=== PATIENT | female | born 2000 | race Two or more races ===

== ENCOUNTER 2021-07-05 17:24 | Emergency (ER) | payer OTHER, SELFPAY ==
[2021-07-05 17:31] VITALS: BP 141/65; PULSE 87; RESP 16; TEMP 36.8; O2SAT 100
[2021-07-05 17:44] VITALS: BP 141/65; PULSE 87; RESP 16; TEMP 36.8; O2SAT 100
--- NOTE | 2021-07-05 17:58 | ED.EAR ---
HPI - Ear Problem General Chief complaint: Ear Stated complaint: ear drainage and trouble hearing Time Seen by Provider: 07/05/21 17:57 Source: patient and RN notes reviewed Mode of arrival: ambulatory Limitations: no limitations History of Present Illness HPI Narrative: 21-year-old female presents with concern for ear discharge, decreased hearing, right ear discomfort. She reports feeling of fullness. Reports she has been using antihistamine and Flonase for possible fluid behind the ear without relief. She denies fever, nasal congestion, rhinorrhea, sore throat. MD Complaint: ear discharge Related Data Home Medications Medication Instructions Recorded Confirmed cetirizine [Zyrtec] 10 mg PO DAILY 07/05/21 07/05/21 ergocalciferol (vitamin D2) 1,250 mcg PO WEEKLY 07/05/21 07/05/21 [Vitamin D2] fluticasone furoate 50 mcg INHALATION DAILY 07/05/21 07/05/21 Allergies Allergy/AdvReac Type Severity Reaction Status Date / Time No Known Allergies Allergy Verified 07/05/21 17:39 Review of Systems Review of Systems: CONSTITUTIONAL: Denies malaise, chills, sweats, or fever. EYES: Denies visual changes, redness, or discharge. ENT: Denies rhinorrhea, congestion, sinus pain, and sore throat. Reports ear discharge, decreased hearing, right ear fullness and discomfort CARDIOVASCULAR: Denies chest pain, palpitations, or edema. RESPIRATORY: Denies cough. Denies dyspnea. GASTROINTESTINAL: Denies abdominal pain, nausea, vomiting, diarrhea SKIN: Denies rash or itching. MUSCULOSKELETAL: Denies myalgia. NEUROLOGIC: Denies headache. All systems reviewed & are unremarkable except as noted in HPI and below PMFSH Comments At time of signature, agree with nursing past medical, surgical, social and family history. There is no relevant family history pertinent to the presenting complaint Exam Narrative: GENERAL: Well-appearing, well-nourished, and in no acute distress. HEAD: Normocephalic EYES: PERRLA, conjunctivae clear ENT: Nares clear. Mucous membranes moist. Right TM not visible due to purulent drainage and edema, left TM not visible due to excess cerumen; no tragal tenderness. Oropharynx not erythematous without lesions. Tonsils not enlarged and without exudate, no drooling, no hoarseness, no trismus, uvula midline. NECK: Supple. No lymphadenopathy CHEST: No respiratory distress, speaks in full sentences. HEART: Regular rate and rhythm. No murmur heard. SKIN: Warm, dry, no rash. NEURO: Alert and oriented x3. PSYCH: Normal mood and affect Course Course Emergency Course: Patient is aware of diagnosis, understands and agrees to treatment plan. Anticipatory guidance given. Patient agrees to follow-up as directed and is aware of reasons to seek care at the emergency department. Portions of this record may have been created with voice recognition software Level of Care: Express Care Visit Vital Signs Vital signs: Vital Signs Temperature 98.2 F 07/05/21 17:31 Pulse Rate 87 07/05/21 17:31 Respiratory Rate 16 07/05/21 17:31 Blood Pressure 141/65 H 07/05/21 17:31 Pulse Oximetry 100 07/05/21 17:31 Temperature 98.2 F 07/05/21 17:44 Pulse Rate 87 07/05/21 17:44 Respiratory Rate 16 07/05/21 17:44 Blood Pressure 141/65 H 07/05/21 17:44 Pulse Oximetry 100 07/05/21 17:44 Reviewed. Medical Decision Making MDM Narrative Medical decision making narrative: Differential diagnosis considered: Lima virus, strep pharyngitis, allergic rhinitis, upper respiratory tract infection, sinusitis, rhinosinusitis, nasopharyngitis. viral pharyngitis, otitis media, otitis externa, otitis effusion, cerumen impaction, foreign body. Exam findings show no acute concerns or changes; patient is non-toxic appearing and is in no distress. Patient is appropriate for outpatient treatment and follow-up. Vital Signs Vital Signs: Vital Signs Temperature 98.2 F 07/05/21 17:31 Pulse Rate 87 07/05/21 17:31 Respiratory Rate 16
== END 2021-07-05 18:07 | disposition home or self-care (01) ==
PROVIDERS: Emergency Provider Nurse Practitioner
DX: H60.501 Unspecified acute noninfective otitis externa, right ear (principal); J45.909 Unspecified asthma, uncomplicated
CPT/HCPCS: 99203; G0463

== ENCOUNTER 2022-12-06 13:48 | Emergency (ER) | payer OTHER, SELFPAY ==
[2022-12-06 13:52] VITALS: BP 128/64; PULSE 98; RESP 20; TEMP 37.4; O2SAT 100
--- NOTE | 2022-12-06 14:33 | ED.EAR ---
HPI - Ear Problem General Chief complaint: Ear Stated complaint: ears Time Seen by Provider: 12/06/22 14:33 Source: patient Mode of arrival: ambulatory Limitations: no limitations History of Present Illness HPI Narrative: 22-year-old female presents for complaint of ear pain the past few days. Endorses mild left ear drainage, pain is worse with pressure on the ear or when trying to lay on that side. Endorses both ears sound muffled. Denies tinnitus, dizziness, nausea, vomiting, fever chills. Endorses a history of ear infections. States they tend to start when she gets water in the ear. Denies frequent use of ear buds. MD Complaint: ear pain Related Data Allergies Allergy/AdvReac Type Severity Reaction Status Date / Time No Known Allergies Allergy Verified 12/06/22 14:02 Review of Systems Review of Systems: CONSTITUTIONAL: Denies malaise, chills, or fever. EYES: Denies visual changes, redness, or discharge. ENT: Denies rhinorrhea, congestion, sinus pain, and sore throat. Reports ear pain CARDIOVASCULAR: Denies chest pain, palpitations, or edema. RESPIRATORY: Denies cough or dyspnea. GASTROINTESTINAL: Denies abdominal pain, nausea, vomiting, diarrhea SKIN: Denies rash or itching. MUSCULOSKELETAL: Denies myalgia. NEUROLOGIC: Denies headache. All systems reviewed & are unremarkable except as noted in HPI and below PMFSH Past Medical History Medical History (Updated 12/06/22 @ 14:48 by Alison Albert APRN) No pertinent past medical history Comments At time of signature, agree with nursing past medical, surgical, social and family history. There is no relevant family history pertinent to the presenting complaint Exam Narrative: GENERAL: Well-appearing HEAD: Normocephalic EYES: PERRLA, conjunctivae clear ENT: Nares clear. Mucous membranes moist. right canal with excess cerumen, after removal Right TM pearly levy with normal light reflex; left canal erythematous with mild drainage, tenderness, left tragal tenderness. Oropharynx not erythematous without lesions. NECK: Supple. No lymphadenopathy CHEST: Clear to auscultation, breath sounds equal. No wheezing, rhonchi, rales, or stridor. No respiratory distress, speaks in full sentences. HEART: Regular rate and rhythm. No murmur heard. SKIN: Warm, dry, no rash. NEURO: Alert and oriented x3. PSYCH: Normal mood and affect Course Course Emergency Course: Patient is aware of diagnosis, understands and agrees to treatment plan. Anticipatory guidance given. Patient agrees to follow-up as directed and is aware of reasons to seek care at the emergency department. Portions of this record may have been created with voice recognition software Level of Care: Express Care Visit Vital Signs Vital signs: Vital Signs Temperature 99.4 F 12/06/22 13:52 Pulse Rate 98 12/06/22 13:52 Respiratory Rate 12/06/22 13:52 Blood Pressure 128/64 12/06/22 13:52 Pulse Oximetry 100 12/06/22 13:52 Oxygen Delivery Room Air 12/06/22 13:52 Temperature 99.4 F 12/06/22 13:52 Pulse Rate 98 12/06/22 13:52 Respiratory Rate 12/06/22 13:52 Blood Pressure 128/64 12/06/22 13:52 Pulse Oximetry 100 12/06/22 13:52 Oxygen Delivery Room Air 12/06/22 13:52 Reviewed Procedures Ear Wax Removal Right Ear: Ear Wax Removal Date: 12/06/22 Results: Re-examined: some cerumen remains TM Examination: TM(s) intact, normal appearance Ear Canal Exam: atraumatic Patient Tolerated Procedure: well and no complications Technique: ear canal curetted Additional Comments: Small amount of soft cerumen removed using curette. Patient reported significant improvement in hearing. Patient will use OTC debrox for small remainder of cerumen. Medical Decision Making MDM Narrative Medical decision making narrative: Discussed physical exam findings c/w left OE, Right cerumen impaction; tolerated cerumen removal. Advised s
== END 2022-12-06 14:47 | disposition home or self-care (01) ==
PROVIDERS: Emergency Provider Nurse Practitioner Family; PCP Nurse Practitioner Family
DX: H60.92 Unspecified otitis externa, left ear (principal); H61.21 Impacted cerumen, right ear
CPT/HCPCS: 69210; 99213; G0463

== ENCOUNTER 2023-06-29 12:44 | Emergency (ER) | payer OTHER, SELFPAY ==
[2023-06-29 12:54] VITALS: BP 124/82; PULSE 88; RESP 20; TEMP 37.1; O2SAT 100
--- NOTE | 2023-06-29 14:26 | ED.EAR ---
HPI - Ear Problem General Chief complaint: Ear Stated complaint: Ears Source: patient Mode of arrival: ambulatory Limitations: no limitations History of Present Illness HPI Narrative: Patient presents for evaluation of bilateral ear discomfort for the last week. She indicates she has a history of recurrent ear infections. In the past she has been given oral and otic antibiotic preparations together. She has seen ENT but states that she was not given any insight as to the cause of her recurrent infections. She reports muffled hearing and states that her ear canals feel ?wet?. No fever, chills, nausea, vomiting, sinus congestion, sore throat or cough. She does not smoke. Exposure to secondhand smoke. Related Data Allergies Allergy/AdvReac Type Severity Reaction Status Date / Time No Known Allergies Allergy Verified 06/29/23 12:59 Review of Systems Review of Systems: CONSTITUTIONAL: Denies fever, chills, or sweats. EYES: Denies visual changes, redness, or discharge. ENT: Reports bilateral ear discomfort, muffled hearing, and a ?wet? sensation in the ears. CARDIOVASCULAR: Denies chest pain, palpitations, or edema. RESPIRATORY: Denies cough or dyspnea. GASTROINTESTINAL: Denies abdominal pain, nausea, vomiting, or diarrhea. GENITOURINARY: Denies dysuria or hematuria. SKIN: Denies rash or itching. MUSCULOSKELETAL: Denies back pain, joint pain, or myalgia. NEUROLOGIC: Denies headache, numbness, dizziness, or weakness. PSYCHIATRIC: Denies anxiety or depression. PMFSH Past Medical History Medical History (Updated 06/29/23 @ 14:31 by Js Villalobos, TRAVIS, ) Asthma Surgical History Surgical History No pertinent past surgical history Family History Family History Mother Unknown family medical history Social History Social History Smoking status: Never smoker Substance use: never Gender identity (if verbalized by the patient): Female Spiritual care concerns: No Exam Narrative: GENERAL: Well-appearing, well-nourished, and in no acute distress. HEAD: Normocephalic, atraumatic. EYES: PERRLA and EOMI. ENT: Nares clear, no rhinorrhea or epistaxis. Mucous membranes moist. Oropharynx without tonsillar hypertrophy exudate or other lesions. Bilateral ear canals are edematous. I am unable to visualize the tympanic membranes. There is some white exudate on both ear canals. NECK: Supple. No adenopathy or masses. No carotid bruits or JVD CHEST: Clear to auscultation. No respiratory distress. No wheezes rales or rhonchi HEART: Regular rate and rhythm. No murmur heard. Normal peripheral pulses. ABDOMEN: Soft, nontender, nondistended, normal active bowel sounds. EXTREMITIES: Normal range of motion. No edema. SKIN: Warm, dry, no rash. NEURO: No focal deficits. Alert and oriented x3. PSYCH: Normal mood and affect. Course Course Emergency Course: This is a 23-year-old female who presented for evaluation of bilateral ear discomfort. I was unable to visualize the tympanic membranes due to edematous canals. I irrigated both ears, patient tolerated well. Small amount of white exudate was removed. I was still unable to visualize the tympanic membranes. She could have a simple otitis externa but very well could have otitis media with rupture of the TM's. Has required oral and otix abx concurrently in the past. Will dc with augmentin and ofloxacin. Follow up with primary provider and ENT. Go to the ER for worsening symptoms. Patient in agreement with plan of care. Level of Care: Express Care Visit Vital Signs Vital signs: Vital Signs Temperature 37.1 C 06/29/23 12:54 Pulse Rate 88 06/29/23 12:54 Respiratory Rate 20 06/29/23 12:54 Blood Pressure 124/82 06/29/23 12:54 Pulse Oximetry 100 06/29/23 12:54 Oxy
== END 2023-06-29 14:41 | disposition home or self-care (01) ==
PROVIDERS: Emergency Provider Nurse Practitioner; PCP Nurse Practitioner Family
DX: H60.503 Unspecified acute noninfective otitis externa, bilateral (principal); H61.23 Impacted cerumen, bilateral; J45.909 Unspecified asthma, uncomplicated
CPT/HCPCS: 69209; 99213; G0463

== ENCOUNTER 2023-12-20 10:47 | Emergency (ER) | payer OTHER, SELFPAY ==
[2023-12-20 10:56] VITALS: BP 123/75; PULSE 83; RESP 16; TEMP 37.1; O2SAT 99
--- NOTE | 2023-12-20 11:50 | ED.EAR ---
HPI - Ear Problem General Chief complaint: Ear Stated complaint: Ear Pain/Skin Problem Time Seen by Provider: 12/20/23 11:37 Source: patient and RN notes reviewed Mode of arrival: ambulatory Limitations: no limitations History of Present Illness HPI Narrative: Patient presents today complaining of clear drainage from bilateral ears with itching and mild left ear pain x2-3 days. She has tried no OTC treatment prior to arrival. States she has had similar symptoms in the past and has been given ear drops. States she has seen ENT in the past and was told that she has a narrow ear canal and that her ear canal was, ?too clean. She also complains a rash to left forearm times 2-3 months. States she does shave the forearms before she gets laser hair removal treatment. States the rash, that appears as small pimple like lesions, wax and wane. She has tried no treatment prior to arrival. Related Data Allergies Allergy/AdvReac Type Severity Reaction Status Date / Time No Known Allergies Allergy Verified 12/20/23 10:53 Review of Systems Review of Systems: CONSTITUTIONAL: Denies body aches, fever, chills, or sweats. EYES: Denies visual changes, redness, or discharge. ENT: Denies rhinorrhea, congestion, sore throat. + bilateral ear drainage, left ear pain CARDIOVASCULAR: Denies chest pain, palpitations, or edema. RESPIRATORY: Denies cough or dyspnea. GASTROINTESTINAL: Denies abdominal pain, nausea, vomiting, or diarrhea. GENITOURINARY: Denies dysuria or hematuria. SKIN: + left forearm rash MUSCULOSKELETAL: Denies back pain, joint pain, or myalgia. NEUROLOGIC: Denies headache, numbness, tingling, or weakness. PSYCH: Denies depression or anxiety. [facility] Past Medical History Medical History Asthma Surgical History Surgical History No pertinent past surgical history Family History Family History Mother Unknown family medical history Social History Social History Smoking status: Never smoker Substance use: never Gender identity (if verbalized by the patient): Female Spiritual care concerns: No Comments At time of signature, I have reviewed and agree with nursing past medical, surgical, social and family history unless otherwise noted. Please see nursing chart for further information. There is no relevant family history pertinent to the presenting complaint Exam Narrative: GENERAL: Well-appearing, well-nourished, and in no acute distress. HEAD: Normocephalic, atraumatic. EYES: EOMI. No redness or drainage. Conjunctivae normal. ENT: Mucous membranes pink and moist. Bilateral ear canals are slightly edematous with clear drainage. No movement or tragal tenderness noted. NECK: Normal AROM. CHEST: No respiratory distress. EXTREMITIES: Normal range of motion. No edema. SKIN: Warm, dry. Capillary refill normal. Normal skin turgor. Scattered tiny pustules, appear to be folliculitis, to the left anterior forearm. No erythema, induration, or active drainage. NEURO: No focal deficits. Alert and oriented x3. Gait steady. PSYCH: Normal affect. No signs of depression or anxiety. Course Course Level of Care: Express Care Visit Vital Signs Vital signs: Vital Signs Temperature 98.8 F 12/20/23 10:56 Pulse Rate 83 12/20/23 10:56 Respiratory Rate 16 12/20/23 10:56 Blood Pressure 123/75 12/20/23 10:56 Pulse Oximetry 99 12/20/23 10:56 Oxygen Delivery Room Air 12/20/23 10:56 Temperature 98.8 F 12/20/23 10:56 Pulse Rate 83 12/20/23 10:56 Respiratory Rate 16 12/20/23 10:56 Blood Pressure 123/75 12/20/23 10:56 Pulse Oximetry 99 12/20/23 10:56 Oxygen Delivery Room Air 12/20/23 10:56 Reviewed Medical Decision Making MDM Narrati
== END 2023-12-20 12:00 | disposition home or self-care (01) ==
PROVIDERS: Emergency Provider Nurse Practitioner; PCP Nurse Practitioner Family
DX: L73.9 Follicular disorder, unspecified (principal); H60.93 Unspecified otitis externa, bilateral; J45.909 Unspecified asthma, uncomplicated
CPT/HCPCS: 99213; G0463

== ENCOUNTER 2024-05-23 16:57 | Emergency (ER) | payer OTHER, SELFPAY ==
[2024-05-23 17:01] VITALS: BP 125/68; PULSE 75; RESP 18; TEMP 36.8; O2SAT 100
--- NOTE | 2024-05-23 17:03 | ED.EAR ---
HPI - Ear Problem General Chief complaint: Ear Stated complaint: Ear Pain Time Seen by Provider: 05/23/24 17:15 Source: patient and RN notes reviewed Mode of arrival: ambulatory Limitations: no limitations History of Present Illness HPI Narrative: 24-year-old female presents with concern for bilateral ear drainage. She reports history of ear infections. She denies any current ear pain. Denies upper respiratory symptoms. Denies fever. MD Complaint: ear pain Related Data Home Medications ?Medication ?Instructions ?Recorded ?Confirmed ?Last Taken ?Type cholecalciferol (vitamin D3) 1,250 05/23/24 Unknown History mcg (50,000 unit) capsule Allergies Allergy/AdvReac Type Severity Reaction Status Date / Time No Known Allergies Allergy Verified 05/23/24 16:59 Review of Systems Review of Systems: CONSTITUTIONAL: Denies malaise, chills, sweats, or fever. EYES: Denies visual changes, redness, or discharge. ENT: Denies rhinorrhea, congestion, sinus pain, and sore throat. Reports bilateral ear drainage CARDIOVASCULAR: Denies chest pain, palpitations, or edema. RESPIRATORY: Denies cough. Denies dyspnea. GASTROINTESTINAL: Denies abdominal pain, nausea, vomiting, diarrhea SKIN: Denies rash or itching. MUSCULOSKELETAL: Denies myalgia. NEUROLOGIC: Denies headache. All systems reviewed & are unremarkable except as noted in HPI and below PMFSH Past Medical History Medical History Asthma Surgical History Surgical History No pertinent past surgical history Family History Family History Mother Unknown family medical history Social History Social History Smoking status: Never smoker Substance use: never Gender identity (if verbalized by the patient): Female Spiritual care concerns: No Comments At time of signature, agree with nursing past medical, surgical, social and family history. There is no relevant family history pertinent to the presenting complaint Exam Narrative: GENERAL: Well-appearing, well-nourished, and in no acute distress. HEAD: Normocephalic EYES: PERRLA, conjunctivae clear ENT: Nares clear. TM pearly levy; EAC erythema and edema bilaterally with drainage NECK: Supple. No lymphadenopathy CHEST: No respiratory distress, speaks in full sentences. HEART: Regular rate and rhythm. No murmur heard. SKIN: Warm, dry, no rash. NEURO: Alert and oriented x3. PSYCH: Normal mood and affect Course Course Emergency Course: Patient is aware of diagnosis, understands and agrees to treatment plan. Anticipatory guidance given. Patient agrees to follow-up as directed and is aware of reasons to seek care at the emergency department. Portions of this record may have been created with voice recognition software Level of Care: [facility] Visit Vital Signs Vital signs: Vital Signs Temperature 98.3 F 05/23/24 17:01 Pulse Rate 75 05/23/24 17:01 Respiratory Rate 18 05/23/24 17:01 Blood Pressure 125/68 05/23/24 17:01 Pulse Oximetry 100 05/23/24 17:01 Oxygen Delivery Room Air 05/23/24 17:01 Temperature 98.3 F 05/23/24 17:01 Pulse Rate 75 05/23/24 17:01 Respiratory Rate 18 05/23/24 17:01 Blood Pressure 125/68 05/23/24 17:01 Pulse Oximetry 100 05/23/24 17:01 Oxygen Delivery Room Air 05/23/24 17:01 Reviewed. Medical Decision Making MDM Narrative Medical decision making narrative: I evaluated this in the [facility]. History is obtained from patient who is an independent historian and physical exam was performed.? Available medical records were reviewed. ? Exam findings and relevant testing show no acute concerns or changes; patient is non-toxic appearing and is in no distress. Differential diagnosis considered: Lima virus, strep pharyngitis, allergic rhinitis, upper respiratory tract infection, sinusitis, rhinosinusitis, nasopharyngitis. viral pharyngitis, otitis media, otitis externa, otitis effusion, cerumen impaction, foreign body. Exam findings show no acute concerns or changes; patient is non-toxic appearing and is in no distress. Patient is appropriate for outpatient treatment and follow-up. ? Differential diagnosis and treatment plan were discussed with the patient. Patient agrees with discussion and after shared medical decision making agrees with plan of care. All questions were answered to the patient's satisfaction. Patient is appropriate for outpatient treatment and follow-up. Vital Signs Vital Signs: Vital Signs Temperature 98.3 F 05/23/24 17:01 Pulse Rate 75 05/23/24 17:01 Respiratory Rate 18 05/23/24 17:01 Blood Pressure 125/68 05/23/24 17:01 Pulse Oximetry 100 05/23/24 17:01 Oxygen Delivery Room Air 05/23/24 17:01 Temperature 98.3 F 05/23/24 17:01 Pulse Rate 75 05/23/24 17:01 Respiratory Rate 18 05/23/24 17:01 Blood Pressure 125/68 05/23/24 17:01 Pulse Oximetry 100 05/23/24 17:01 Oxygen Delivery Room Air 05/23/24 17:01 Critical Care Time Critical Care Time Critical Care Time: No Discharge Plan Discharge Clinical Impression: Otitis externa Patient Disposition: Home, Self-Care Condition: Stable Instructions: How to Use Ear Drops (ED) Additional Instructions: 1) Please follow-up with your primary care doctor in the next 1-2 days. 2) If you have any urgent concerns please go to the ER. 3) Please take medications as prescribed and continue taking your home medications as usual. 4) Please read and follow information included in discharge instructions. Patient Language: Greenlandic Prescriptions: New [id number] 3.5-10,000-1 mg/mL-unit/mL-% drops,suspension 4 drop EACH EAR Q8H 7 Days Qty: 10 0RF No Action cholecalciferol (vitamin D3) 1,250 mcg (50,000 unit) capsule Follow-up/Referrals: Claire,Celeste Yeung APN [Primary Care Provider] - Time of Disposition: 17:23
== END 2024-05-23 17:25 | disposition home or self-care (01) ==
PROVIDERS: Emergency Provider Nurse Practitioner; PCP Nurse Practitioner Family
DX: H60.93 Unspecified otitis externa, bilateral (principal)
CPT/HCPCS: 99213; G0463

== ENCOUNTER 2024-06-01 15:20 | Emergency (ER) | payer OTHER, SELFPAY ==
[2024-06-01 15:24] VITALS: BP 157/62; PULSE 96; RESP 20; TEMP 37.3; O2SAT 99
--- NOTE | 2024-06-01 15:45 | ED_ITS ---
HPI - URI/Sore Throat General Chief Complaint: Upper Respiratory Infection Stated Complaint: aches/cough Time Seen by Provider: 06/01/24 15:47 Source: patient, RN notes reviewed and old records reviewed Mode of arrival: ambulatory Limitations: no limitations History of Present Illness HPI Narrative: 24 year old female who presents to [facility] care with complaints of cough,body aches, fever, headache and fatigue which started yesterday. Patient reports that she has been taking Tylenol and Ibuprofen for her symptoms. Patient reports no shortness of breath with no tachypnea noted , SAO2 99% on room air. MD elicited complaint: fever, cough and other (headache, fatigue and body aches) Onset (ago): day(s) (day 2 of symptoms.) Consistency: constant Pain scale (0-10): 8 Description of mucous: clear Able to tolerate fluids by mouth: Yes Treatments prior to arrival: acetaminophen and ibuprofen Related Data Home Medications ?Medication ?Instructions ?Recorded ?Confirmed ?Last Taken ?Type cholecalciferol (vitamin D3) 1,250 05/23/24 Unknown History mcg (50,000 unit) capsule Allergies Allergy/AdvReac Type Severity Reaction Status Date / Time No Known Allergies Allergy Verified 06/01/24 15:31 Review of Systems Review of Systems: CONSTITUTIONAL:Reports malaise, chills, sweats, and fever. EYES: Denies visual changes, redness, or discharge. ENT: Reports rhinorrhea, congestion, no sinus pain,no otalgia and no sore throat. CARDIOVASCULAR: Denies chest pain, palpitations, or edema. RESPIRATORY: Reports cough.? Denies dyspnea. GASTROINTESTINAL: Denies abdominal pain, nausea, vomiting, diarrhea SKIN: Denies rash or itching. MUSCULOSKELETAL: Reports myalgia. NEUROLOGIC: Reports headache. All systems reviewed & are unremarkable except as noted in HPI and below PMFSH Past Medical History Medical History (Updated 06/03/24 @ 15:53 by Angelica Enciso NP) Fracture of finger of left hand 5th finger Asthma Surgical History Surgical History No pertinent past surgical history Family History Family History Mother Unknown family medical history Social History Social History Smoking status: Never smoker Substance use: never Gender identity (if verbalized by the patient): Female Spiritual care concerns: No Comments At time of signature, agree with nursing past medical, surgical, social and family history. There is no relevant family history pertinent to the presenting complaint Exam Narrative: GENERAL: ill-appearing, well-nourished, and in no acute distress. HEAD: Normocephalic EYES: PERRLA, conjunctivae clear ENT: Nares clear, turbinates edematous and erythematous, clear discharge. Mucous membranes moist. TM pearly levy with dull light reflex bilaterally; no tragal tenderness. Oropharynx erythematous without lesions. Tonsils not enlarged and without exudate, no drooling, no hoarseness, no trismus, uvula midline.some post nasal drainage NECK: Supple. No lymphadenopathy CHEST: Clear to auscultation, breath sounds equal. No wheezing, rhonchi, rales, or stridor. No respiratory distress, speaks in full sentences.cough noted SAO2 99% on room air HEART: Regular rate and rhythm. No murmur heard. SKIN: Warm, dry, no rash. NEURO: Alert and oriented x3. PSYCH: Normal mood and affect Course Course Emergency Course: Patient is aware of diagnosis, understands and agrees to treatment plan.? Anticipatory guidance given.? Patient agrees to follow-up as directed and is aware of reasons to seek care at the emergency department. Portions of this record may have been created with voice recognition software Level of Care: Express Care Visit Vital Signs Vital signs: Vital Signs Temperature 37.3 C 06/01/24 15:24 Pulse Rate 96 06/01/24 15:24 Respiratory Rate 20 06/01/24 15:24 Blood Pressure 157/62 H 06/01/24 15:24 Pulse Oximetry 99 06/01/24 15:24 Oxygen Delivery Room Air 06/01/24 15:24 Temperature 37.3 C 06/01/24 15:24 Pulse Rate 96 06/01/24 15:24 Respiratory Rate 20 06/01/24 15:24 Blood Pressure 157/62 H 06/01/24 15:24 Pulse Oximetry 99 06/01/24 15:24 Oxygen Delivery Room Air 06/01/24 15:24 Reviewed MDM - URI/Sore Throat MDM Narrative Medical decision making narrative: Differential diagnosis considered: [place] virus, strep pharyngitis, allergic rhinitis, upper respiratory tract infection, sinusitis, rhinosinusitis, nasopha ryngitis. viral pharyngitis, otitis media, otitis externa, pneumonia, bronchitis, viral cough syndrome, viral syndrome, and influenza.? Exam findings show no acute concerns or changes; patient is non-toxic appearing and is in no distress.? Patient is appropriate for outpatient treatment and follow-up. Differential Diagnosis Differential diagnosis: Likely upper respiratory infection, viral infection, bronchitis, influenza and other (COVID, cough) Medical Records Attestation: I reviewed the patient's medical records. Lab Data Attestation: I reviewed the patient's lab results. Lab results narrative: InfluenzaA negative, Influenza B negative, COVID antigen positive Labs: Lab Results 06/01/24 Range/Units 15:25 POC Influenza A Ag Negative (Negative) POC Influenza B Ag Negative (Negative) POC SARS CoV-2 Ag Positive (Negative) reviewed Critical Care Time Critical Care Time Critical Care Time: No Discharge Plan Discharge Clinical Impression: COVID-19 Patient Disposition: Home, Self-Care Condition: Stable Instructions: Antibiotic Form, COVID-19 (Coronavirus Disease 2019) (ED) Additional Instructions: Increase fluids especially juices and water Affb-dia-ohdsqym cough and cold medicine of your choice for your symptoms Zyrtec Claritin or Catie for sinus congestion and drainage Robitussin or Delsym cough syrup Tylenol or ibuprofen for any fever pain heat to the face 20-30 minutes 4-6 times a day for pain Salt water gargles, throat lozenges or throat sprays as desired If your symptoms persist, change or worsen significantly before you can contact your personal physician then please, without delay, go to the emergency department for further evaluation. Follow-up with PCP in 7-10 days or sooner if needed Follow up with PCP soon in regards to your blood pressure which is elevated above threshold for referral. Blood pressure above 120/80 may indicate pre- hypertension. 157/62 Was quarantine for 5 days from start of symptoms COVID-19 DISCHARGE The following recommendations have been made by the CDC and local Health Departments, regarding COVID-19: Those individuals with mild cases of COVID-19 can generally be discontinued from isolation, 5 days AFTER the onset of symptoms AND the resolution of fever for 24hrs (without the use of fever-reducing medications) Those individuals who were asymptomatic, and tested positive, are discontinued from isolation 10 days AFTER their first positive COVID-19 test Those individuals with SEVERE to CRITICAL illness or immunocompromised diseases may require up to 20 days of home isolation or hospitalization Majority of mild to moderate cases can be treated at home, without hospitalization or prescription medications You do not need a negative test result to return to work/school, assuming the above recommendations have been met and you are not symptomatic. At this time, return to work/school notes will not be provided. Guidelines from the local Health Department, CDC, and workplace are expected to be followed. All individuals in the household need to remained quarantined for up to 14 days if asymptomatic OR 10 days after the start of symptoms. Everyone in the home DOES NOT require testing, they are presumed positive and should quarantine as directed. Treating symptoms for mild to moderate cases may include: Tylenol, Flonase/nasal spray, OTC cold/flu medications recommended from your provider or any necessary prescription medications provided at your visit or from your PCP IF YOU TESTED NEGATIVE If you are symptomatic with reason to believe you have COVID-19, there is a high possibility your rapid test may not have detected the virus. Rapid testing is dependent on timing and viral load and may have a false- negative reading You should follow appropriate guidelines regarding quarantine, hand washing, mask wearing, and social distancing You may be sent for PCR testing as an outpatient to the [place] testing site Common Adult Symptoms: Fever/chills Cough Shortness of breath Fatigue, muscle aches Headache Loss of taste/smell Sore throat, congestion, runny nose GI symptoms (nausea, vomiting, diarrhea) Common Pediatric Symptoms Cough Fever GI symptoms (diarrhea, upset stomach, nausea, vomiting) Symptoms may differ in severity however, most cases do not require hospitalization. WHEN TO SEEK ER EVALUATION/TREATMENT Severe/persistent shortness of breath or difficulty breathing Elevated, persistent fevers without resolution with fever-reducing medications Chest pain Extreme fatigue/lethargy Complications of pre-existing disease Patient Language: Iraqi Prescriptions: No Action cholecalciferol (vitamin D3) 1,250 mcg (50,000 unit) capsule Follow-up/Referrals: Claire,Celeste Yeung APN [Primary Care Provider] - Stand Alone Forms: Work/School Release IP Time of Disposition: 16:04 Quality [place] Coma Scale Eyes: Open Verbal: Oriented and Alert Motor: Follows Commands [place] Coma Total Score: 15
[2024-06-01 15:55] LABS: EDCOVIDSCREEN Positive (Negative); EDINFLUASCREEN Negative (Negative); EDINFLUBSCREEN Negative (Negative)
--- OUTSIDE RECORDS SUMMARY | 2024-06-01 17:56 | XMS_ITS | Referral Summary ---
Author Organization [facility] Address [address] [place] [address] Care Team Providers Care Coating Line Worker Name Role Phone Celeste Claire NP Primary Care Provider Encounters Date Type Department Care Team Description 03/31/2024 8:46 PM GREY WASHER - 03/31/2024 9:59 PM GREY WASHER Emergency [facility] Emergency Department [address] [place] [address] Influenza A (Primary Dx); Acute febrile illness Discharge Disposition: Discharge to home or self care from Last 3 Months Allergies No known active allergies Medications ergocalciferol (VITAMIN D) 50,000 unit capsule Take 1 capsule by mouth once a week 0 06/15/19 19 Active diphenhydrAMINE (diphenhydrAMINE ) 25 mg capsule Take 1 tablet/capsule (25 mg total) by mouth every 6 (six) hours as needed for itching 20 capsule 06/29/19 19 Active naproxen (NAPROSYN) 375 mg tablet Take 1 tablet (375 mg total) by mouth 2 (two) times a day with meals 20 tablet 01/01/20 19 Active albuterol HFA (PROVENTIL HFA,VENTOLIN HFA,PROAIR HFA) 90 mcg/actuation inhalerIndicatio ns:Bronchospasm Prevention Inhale 2 puffs every 4 (four) hours as needed for wheezing 1 Inhaler 1 05/16/19 21 Active neomycin-polymyx in-HC (CORTISPORIN) 3.5-10,000-1 mg/mL-unit/mL-% otic suspension Administer 4 drops into the left ear 3 (three) times a day 10 mL 08/14/19 22 Active cyclobenzaprine (FLEXERIL) 10 mg tablet Take 1 tablet (10 mg total) by mouth 2 (two) times a day as needed for muscle spasms 20 tablet 11/25/19 23 Active ibuprofen (ADVIL,MOTRIN) 800 mg tablet Take 1 tablet (800 mg total) by mouth 3 (three) times a day as needed for pain 30 tablet 11/25/19 23 Active tiZANidine (ZANAFLEX) 4 mg tabletIndication s:Acute exacerbation of chronic low back pain Take 1 tablet (4 mg total) by mouth every 6 (six) hours as needed (Take as directed to relax muscles) Collaborating physician Demetrio Frias MD 20 tablet 11/20/19 24 Active traMADoL (ULTRAM) 50 mg tablet Take 1 tablet (50 mg total) by mouth every 8 (eight) hours as needed for pain P.r.n. pain not relieved by dexamethasone alone. Take 500 mg to 650 mg of acetaminophen with each dose. Take with food. Collaborating physician Demetrio Frias MD 12 tablet 11/20/19 24 Active ibuprofen (ADVIL,MOTRIN) 600 mg tabletIndication s:Influenza A,Acute febrile illness Take 1 tablet (600 mg total) by mouth every 8 (eight) hours as needed for pain or fever Take 1 by mouth every 6-8 hours to treat pain and fever. Collaborating physician Demetrio Frias MD 30 tablet 03/31/19 25 Active promethazine-DM (PROMETHAZINE-DM ) 1.25-3 mg/mL syrupIndications :Influenza A Take 5 mL by mouth 4 (four) times a day as needed for cough (And runny nose) Collaborating physician Demetrio Frias MD 118 mL 1 03/31/19 25 Active Active Problems Problem Noted Date Diagnosed Date Influenza A 03/31/2024 Acute febrile illness 03/31/2024 Acute exacerbation of chronic low back pain 10/24 Myalgia 12/31/2018 Elevated TSH 12/31/2018 Social History Tobacco Use Types Packs/Day Years Used Date Smoking Tobacco: Never Smokeless Tobacco: Never Alcohol Use Standard Drinks/Week Comments No 0 (1 standard drink = 0.6 oz pur e alcohol) Personal Safety Answer Date Recorded Have you ever been in or are you currently in a harmful physical or emotional relationship or is someone making you feel afraid or unsafe? Denies 03/31/2024 Comments No Sex and Gender Information Value Date Recorded Sex Assigned at Not on file Legal Sex Female 11:22 AM GREY WASHER Gender Identity Not on file Sexual Orientation Not on file Last Filed Vital Signs Vital Sign Reading Time Taken Comments Blood Pressure 120/85 03/31/2024 9:59 PM GREY WASHER Pulse 115 03/31/2024 9:59 PM GREY WASHER Temperature 37.7 C (99.9 F) 03/31/2024 9:59 PM GREY WASHER Respiratory Rate 18 03/31/2024 9:59 PM GREY WASHER Oxygen Saturation 98% 03/31/2024 9:59 PM GREY WASHER Inhaled Oxygen Concentration - - Weight 78.5 kg (173 lb 1 oz) 03/31/2024 6:55 PM GREY WASHER Height 160 cm (5' 2.99 ) 03/31/2024 6:55 PM GREY WASHER Body Mass Index 30.66 03/31/2024 6:55 PM GREY WASHER Plan of Treatment Not on file Procedures Procedure Name Priority Date/Time Associated Diagnosis Comments INFLUENZA A/B, RSV, AND COVID-19 PCR Routine 03/31/2024 6:58 PM GREY WASHER from Last 3 Months Results * (ABNORMAL) Influenza A/B, RSV, and COVID-19 PCR Nasopharyngeal (03/31/2024 6:58 PM GREY WASHER) COVID-19 RNA Negative Negative Influenza A RNA Positive(A) Negative [facility] ([place]) Influenza B RNA Negative Negative [facility] ([place]) RSV RNA Negative Negative [facility] ([place]) Comment: Interpretive data: Testing performed by [facility]. This test is performed using the [employer] Xpert Xpress CoV-2/Flu/RSV plus assay. This is a multiplex, real- time reverse transcriptase PCR assay intended for the qualitative detection of nucleic acid from SARS-CoV-2, influenza A, influenza B, and respiratory syncytial virus. This assay has been cleared by the [place] Food and Drug administration. The performance characteristics have been verified by the [facility]. Results must be considered in the clinical context, and a negative result does not rule out infection. Interpretive Data last revised 2023 Nasopharyngeal 03/31/2024 6: 58 PM GREY WASHER 03/31/2024 7:07 PM GREY WASHER Narrative [facility] ([place]) - 03/31/2024 9:34 PM GREY WASHER Is the Patient experiencing symptoms consistent with COVID?->Yes [facility] MICROBIOLOG[facility] - GENERAL O RDERABLES Final Result [facility] ([place]) 1 [facility] Department [place] [address] from Last 3 Months Insurance Care Teams Coating Line Worker Relationship Specialty Start Date End Date Alethea, Celeste Gonzalez NP [address] [place] [address] PCP - General 05/16/20
--- OUTSIDE RECORDS SUMMARY | 2024-06-01 17:56 | XMS_ITS | Clinical Summary ---
Author Organization [facility] Address [address] [place] [address] Care Team Providers Care Stone Setter Apprentice Name Role Phone Celeste Claire NP Primary Care Provider [phone] Allergies No known active allergies Medications ergocalciferol [...] pain 10/24 Myalgia 12/31/2018 Elevated TSH 12/31/2018 Encounters Date Type Department Care Team Description 03/31/2024 8:46 PM SHAREPOINT APPLICATION ARCHITECT - 03/31/2024 9:59 PM SHAREPOINT APPLICATION ARCHITECT Emergency [facility] Emergency Department [address] [place] [address] Influenza A (Primary Dx); Acute febrile illness Discharge Disposition: Discharge to home or self care from Last 3 Months Medical History Medical History Date Comments Asthma Social History Tobacco Use Types Packs/Day Years [...] on file Legal Sex Female 11:22 AM SHAREPOINT APPLICATION ARCHITECT Gender Identity Not on file Sexual Orientation Not on file Obstetrics History Last Filed Vital Signs Vital Sign Reading Time Taken Comments Blood Pressure 120/85 03/31/2024 9:59 PM SHAREPOINT APPLICATION ARCHITECT Pulse 115 03/31/2024 9:59 PM SHAREPOINT APPLICATION ARCHITECT Temperature 37.7 C (99.9 F) 03/31/2024 9:59 PM SHAREPOINT APPLICATION ARCHITECT Respiratory Rate 18 03/31/2024 9:59 PM SHAREPOINT APPLICATION ARCHITECT Oxygen Saturation 98% 03/31/2024 9:59 PM SHAREPOINT APPLICATION ARCHITECT Inhaled Oxygen Concentration - - Weight 78.5 kg (173 lb 1 oz) 03/31/2024 6:55 PM SHAREPOINT APPLICATION ARCHITECT Height 160 cm (5' 2.99 ) 03/31/2024 6:55 PM SHAREPOINT APPLICATION ARCHITECT Body Mass Index 30.66 03/31/2024 6:55 PM SHAREPOINT APPLICATION ARCHITECT Plan of Treatment Health Maintenance Due Date Last Done Comments Cervical Cancer Screening 2000 Depression Screening 2000 Hepatitis C Screening 2000 Regular Well Visit/Exam 18-64 2018 Influenza Vaccine (#1) 2023 7, 12/30/2015, 01/20/2014, Additional history exists DTaP/Tdap/Td Vaccine (8 - Td or Tdap) 03/23/2024 03/23/2014, 09/03/2013, 11/06/2011, Additional history exists Hepatitis B Screening Completed 01/18/2001 , 2000, 2000 Pneumococcal vaccine <65 Completed 002, 01/17/2001, 2000 Varicella Vaccines Completed 10/22/2008, 10/28/2001 HPV Vaccines Completed 05/25/2014, 02/24, 09/03/2013 Procedures Procedure Name Priority Date/Time Associated Diagnosis Comments INFLUENZA A/B, RSV, AND COVID-19 PCR Routine 03/31/2024 6:58 PM SHAREPOINT APPLICATION ARCHITECT from Last 3 Months Results * (ABNORMAL) Influenza A/B, RSV, and COVID-19 PCR Nasopharyngeal (03/31/2024 6:58 PM SHAREPOINT APPLICATION ARCHITECT) COVID-19 RNA Negative Negative Influenza A RNA Positive(A) Negative [facility] ([place]) Influenza B RNA Negative Negative [facility] ([place]) RSV RNA Negative Negative [facility] ([place]) Comment: Interpretive data: Testing performed by [facility]. This test is performed using the [employer] Xpert Xpress CoV-2/Flu/RSV plus assay. This is a multiplex, real- time reverse transcriptase PCR assay intended for the qualitative detection of nucleic acid from SARS-CoV-2, influenza A, influenza B, and respiratory syncytial virus. This assay has been cleared by the [place] Food and Drug administration. The performance characteristics have been verified by the [facility]. Results must be considered in the clinical context, and a negative result does not rule out infection. Interpretive Data last revised 2023 Nasopharyngeal 03/31/2024 6: 58 PM SHAREPOINT APPLICATION ARCHITECT 03/31/2024 7:07 PM SHAREPOINT APPLICATION ARCHITECT Narrative [facility] ([place]) - 03/31/2024 9:34 PM SHAREPOINT APPLICATION ARCHITECT Is the Patient experiencing symptoms consistent with COVID?->Yes [facility] MICRO[facility] - GENERAL O RDERABLES Final Result [facility] ([place]) 1 [facility] [place] [address] from Last 3 Months Insurance [facility] Member Subscriber Plan / Payer ( fective 2017-Present) Name:Deepak Nettles Relation to Subscriber:Self Name:Deepak Nettles Payer ID:[id number] (NAIC) Type:MEDICAID RISK OTHER Address: [place] [address] [facility] Care Teams Stone Setter Apprentice Relationship Specialty Start Date End Date Celeste Claire NP [address] [place] [address] PCP - General 05/16/20
--- OUTSIDE RECORDS SUMMARY | 2024-06-01 17:56 | XMS_ITS | Data Portability ---
Author Organization [facility] Address [address] [place] [address] Care Team Providers Care Group Worker Name Role Phone CELESTE BERRIOS Primary Care Provider Assessment No assessment recorded. Plan of Treatment Reminders Order Date Submit Date Provider Last Modified By Organization Details Last Modified Time Details Appointments None recorded. Lab cobalamin and folate panel, serum 2024 025 [facility], [address] [place] [address] 2, [place], [address], 5 09:15:12 ferritin, serum or plasma 2024 025 [facility], [address] [place] [address] 2, [place], [address], 5 09:15:16 magnesium, serum or plasma 2024 025 [facility], [address] [place] [address] 2, [place], [address], 5 09:15:15 TSH, ultra-sensi tive, serum 2024 025 [facility], [address], [place], [address], 5 09:15:11 CMP, serum or plasma 2024 025 [facility], [address], [place], [address], 5 09:15:09 lipid panel, serum 2024 025 [facility], [address], [place], [address], 5 09:15:08 CBC 2024 025 [facility], [address], [place], [address], 5 09:15:17 HbA1c (hemoglobin A1c), blood 2024 025 [facility], [address] [place] [address] 2, [place], [address], 5 09:15:13 vitamin D, 25-hydroxy, total, serum 2024 025 [facility], [address] [place] [address] 2, [place], [address], 5 09:15:19 vaginal pathogens panel, JUNIOR+probe, vaginal fluid 2023 024 [facility], [address] [place] [address] 2, [place], [address], 4 07:37:29 cytology report, thin prep, smear or scraping, cervical or vaginal 2023 024 [facility], [address] [place] [address] 2, [place], [address], 4 16:37:02 TSH, ultra-sensi tive, serum 2023 024 [facility], [address], [place], [address], 4 06:17:39 CMP, serum or plasma 2023 024 [facility], [address], [place], [address], 4 20:08:59 lipid panel, serum 2023 024 [facility], [address], [place], [address], 4 20:08:59 CBC 2023 024 [facility], [address], [place], [address], 4 20:09:00 vitamin D, 25-hydroxy, total, serum 2023 024 [facility], [address] [place] [address] 2, [place], [address], 4 06:17:41 HbA1c (hemoglobin A1c), blood 2023 024 [facility], [address] [place] [address] 2, [place], [address], 4 06:17:40 Referral nutritionis t/dietitian referral [email or web address] Nutrition/ Assistant Real Estate Manager, [address] [place] [address], [address], 4 14:36:06 physical therapist referral 2023 024 [facility], 1 [facility] [place], [address], 4 13:37:06 physical therapist referral 2022 023 [email or web address] Sakina [facility] [place], [address] [place], [address], 3 15:17:44 Procedures None recorded. Surgeries None recorded. Imaging US, gallbladder 2023 024 [facility] Brit[facility] Scheduling, 1 [facility] [place], [address], 07:53:14 Medication Orders Debrox 6.5 % ear drops 2023 [facility] [employer] #[id number], [address], [place], [place], [id number], 4 14:09:06 Flonase Allergy Relief 50 mcg/actuati on nasal spray,suspe nsion [address] [facility] [employer] #[id number], [address], [place], [place], [id number], 4 15:12:31 albuterol sulfate HFA 90 mcg/actuati on aerosol inhaler 2023 [facility] [employer] #[id number], [address], [place], [place], [id number], 11:08:57 Patient TargetsNo targets recorded. Patient Instructions Encounter Date Encounter Id Patient Instructions Last Modified By Organization Details Last Modified Time 12/20/2022 [id number] A healthy lifestyle: care instructions Not available 12/20/2022 15:04:45 sciatica: care instructions Not available 12/20/2022 15:04:45 back care and preventing injuries: care instructions Not available 12/20/2022 15:04:45 - Avoid heavy lifting and over-exertion. - Avoid bed-rest do some gentle stretching and continue with normal activities. - Use ice to relieve pain, 15 minutes every 2 4 hours. - Use heat to relax muscles, 15 minutes every 2 4 hours. - Sleep on a firm surface and avoid lying on the sofa. Not available 12/20/2022 15:04:59 follow up if needed after PT Not available 12/20/2022 15:05:22 06/04/2023 [id number] sciatica: care instructions Not available 06/04/2023 11:10:29 When You Want to Lose Weight: Care Instructions Not available 06/04/2023 11:08:47 A healthy lifestyle: care instructions Not available 06/04/2023 11:08:46 eustachian tube problems: care instructions Not available 06/04/2023 11:08:47 - Avoid heavy lifting and over-exertion. - Avoid bed-rest do some gentle stretching and continue with normal activities. - Use ice to relieve pain, 15 minutes every 2 4 hours. - Use heat to relax muscles, 15 minutes every 2 4 hours. - Sleep on a firm surface and avoid lying on the sofa. Not available 06/04/2023 11:12:19 follow up after finishing PT Not available 06/04/2023 11:12:47 11/28/2023 [id number] sciatica: care instructions Not available 11/28/2023 15:53:10 How can you care for yourself at home? Eat many small meals and snacks each day instead of three large meals. Choose lean meats. Eat no more than 5 to 6 ounces of meat a day. Cut off all fat you can see. Eat chicken and turkey without the skin. Many types of fish, such as salmon, gamble trout, tuna, and guillen, provide healthy omega-3 fat. But, avoid fish canned in oil, such as sardines in olive oil. Bake, broil, or grill meats, poultry, or fish instead of frying them in butter or fat. Drink or eat nonfat or low-fat milk, yogurt, cheese, or other milk products each day. Read the labels on cheeses, and choose those with less than 5 grams of fat an ounce. Try fat-free sour cream, cream cheese, or yogurt. Avoid cream soups and cream sauces on pasta. Eat low-fat ice cream, frozen yogurt, or sorbet. Avoid regular ice cream. Eat whole-grain cereals, breads, crackers, rice, or pasta. Avoid high-fat foods such as croissants, scones, biscuits, waffles, doughnuts, muffins, granola, and high-fat breads. Flavor your foods with herbs and spices (such as basil, tarragon, or mint), fat-free sauces, or lemon juice instead of butter. You can also use butter substitutes, fat-free mayonnaise, or fat-free dressing. Try applesauce, prune puree, or mashed bananas to replace some or all of the fat when you bake. Limit fats and oils, such as butter, margarine, mayonnaise, and salad dressing, to no more than 1 tablespoon a meal. Avoid high-fat foods, such as: Chocolate, whole milk, ice cream, and processed cheese. Fried or buttered foods. Sausage, salami, and del cid. Cinnamon rolls, cakes, pies, cookies, and other pastries. Prepared snack foods, such as potato chips, nut and granola bars, and mixed nuts. Coconut and avocado. Learn how to read food labels for serving sizes and ingredients. Fast-food and convenience-food meals often have lots of fat. Not available 11/28/2023 15:53:34 Plan pending imaging results. f/u as needed DWP barriers to care: none Not available 11/28/2023 15:56:21 05/05/2024 [id number] tetanus and diphtheria booster: care instructions Not available 05/05/2024 16:20:18 A healthy lifestyle: care instructions Not available 05/05/2024 16:18:43 asthma: your action plan Not available 05/05/2024 16:18:43 Increase intake of fresh fruits, and vegetables. Avoid packaged foods and fast foods. Follow a low salt diet, drink at least 8-10 8oz glasses of water a day, exercise most days of the week. Take all medications as prescribed. Keep appointments with PCP and all specialists. Not available 05/05/2024 16:20:29 follow up as needed, yearly to keep established with provider Not available 05/05/2024 16:20:33 Reason for Referral Physical Therapist Referral for Sciatica Referring Physician: Celeste Berrios, Family Medicine, Encounter Date: 12/20/2022 Physical Therapist Referral for Sciatica Referring Physician: Celeste Berrios Family Medicine, Encounter Date: 06/04/2023 Machinist Class B/dietitian Refer ral for Unintentional weight gain Referring Physician: Celeste Berrios Family Medicine, Encounter Date: 11/28/2023 Results Created Date Observation Date Name Description Value Unit Range Abnormal Flag Note LastModifiedBy Organization Detail LastModifiedTime 06/04/19 24 06/04/2023 LIPID PANEL cholesterol, total 150 mg/dL 100-19 9 Not Available [facility] Department [address] [place], [address], 06/04/2023 20:08:59 06/04/19 24 06/04/2023 LIPID PANEL triglyceride s 184 mg/dL 0-149 above high normal Not Available [facility] Department [address] [place], [address], 06/04/2023 20:08:59 06/04/19 24 06/04/2023 LIPID PANEL HDL cholesterol 40 mg/dL 40-999 Not Available [facility] Department [address] [place], [address], 06/04/2023 20:08:59 06/04/19 24 06/04/2023 LIPID PANEL VLDL cholesterol gale 37 mg/dL 5-40 Not Available [facility] Department [address] [place], [address], 06/04/2023 20:08:59 06/04/19 24 06/04/2023 LIPID PANEL LDL chol calc (nih) 101 mg/dL 0-99 above high normal Not Available [facility] Department [address] [place], [address], 06/04/2023 20:08:59 06/04/19 24 06/04/2023 COMP. METAB OLIC PANEL (14) glucose 88 mg/dL 70-99 Not Available [facility] Department [address] [place], [address], 06/04/2023 20:08:59 06/04/19 24 06/04/2023 COMP. METAB OLIC PANEL (14) BUN 11 mg/dL 6-20 Not Available [facility] Department [address] [place], [address], 06/04/2023 20:08:59 06/04/19 24 06/04/2023 COMP. METAB OLIC PANEL (14) creatinine 0.66 mg/dL 0.76-1 .27 below low normal Not Available [facility] [address] [place], [address], 06/04/2023 20:08:59 06/04/19 24 06/04/2023 COMP. METAB OLIC PANEL (14) eGFR 126 >=60 Units for eGFR value s are mL/mi n/1.7 3 The eGFR Calcu latio n has not been valid ated for patie nts under the age of 18. If test resul ts are displ ayed for a patie nt under the age of 18, disre brenton that value . Not Available [facility] Department [address] [place] [address], [address], 06/04/2023 20:08:59 06/04/19 24 06/04/2023 COMP. METAB OLIC PANEL (14) BUN/creatini ne ratio 16 9-23 Not Available [facility] [address] [place] [address], [address], 06/04/2023 20:08:59 06/04/19 24 06/04/2023 COMP. METAB OLIC PANEL (14) sodium 139 mmol/ L 134-14 4 Not Available [facility] [address] [place], [address], 06/04/2023 20:08:59 06/04/19 24 06/04/2023 COMP. METAB OLIC PANEL (14) potassium 4.1 mmol/ L 3.5-5. 2 Not Available [facility] [address] [place] [address], [address], 06/04/2023 20:08:59 06/04/19 24 06/04/2023 COMP. METAB OLIC PANEL (14) chloride 101 mmol/ L 96-106 Not Available [facility] [address] [place] [address], [address], 06/04/2023 20:08:59 06/04/19 24 06/04/2023 COMP. METAB OLIC PANEL (14) carbon dioxide, total 25 mmol/ L 20-29 Not Available [facility] [address] [place] [address], [address], 06/04/2023 20:08:59 06/04/19 24 06/04/2023 COMP. METAB OLIC PANEL (14) calcium 9.6 mg/dL 8.7-10 .2 Not Available [facility] [address] [place] [address], [address], 06/04/2023 20:08:59 06/04/19 24 06/04/2023 COMP. METAB OLIC PANEL (14) protein, total 7.1 g/dL 6.0-8. 5 Not Available [facility] Department [address] [place] [address], [address], 06/04/2023 20:08:59 06/04/19 24 06/04/2023 COMP. METAB OLIC PANEL (14) albumin 4.7 g/dL 4.0-5. 0 Not Available [facility] Department [address] [place] [address], [address], 06/04/2023 20:08:59 06/04/19 24 06/04/2023 COMP. METAB OLIC PANEL (14) globulin, total 2.4 g/dL 1.5-4. 5 Not Available [facility] Department [address] [place], [address], 06/04/2023 20:08:59 06/04/19 24 06/04/2023 COMP. METAB OLIC PANEL (14) A/G ratio 2.0 1.2-2. 2 Not Available [facility] Department [address] [place], [address], 06/04/2023 20:08:59 06/04/19 24 06/04/2023 COMP. METAB OLIC PANEL (14) bilirubin, total 0.6 mg/dL 0.0-1. 2 Not Available [facility] Department [address] [place], [address], 06/04/2023 20:08:59 06/04/19 24 06/04/2023 COMP. METAB OLIC PANEL (14) alkaline phosphatase 76 IU/L 44-121 Not Available [facility] Department [address] [place] [address], [address], 06/04/2023 20:08:59 06/04/19 24 06/04/2023 COMP. METAB OLIC PANEL (14) AST (SGOT) 14 IU/L 0-40 Not Available [facility] Department [address] [place] [address], [address], 06/04/2023 20:08:59 06/04/19 24 06/04/2023 COMP. METAB OLIC PANEL (14) ALT (SGPT) 13 IU/L 0-32 Not Available [facility] Department [address] [place] [address], [address], 06/04/2023 20:08:59 06/04/19 24 06/04/2023 CBC, NO DIFFE RENTI AL/PL ATELE T WBC 9.7 x10e3 /uL 3.4-10 .8 Not Available [facility] [address] [place] [address], [address], 06/04/2023 20:09:00 06/04/19 24 06/04/2023 CBC, NO DIFFE RENTI AL/PL ATELE T RBC 4.98 x10e6 /uL 3.77-5 .28 Not Available [facility] [address] [place] [address], [address], 06/04/2023 20:09:00 06/04/19 24 06/04/2023 CBC, NO DIFFE RENTI AL/PL ATELE T hemoglobin 14.9 g/dL 11.1-1 5.9 Not Available [facility] Department [address] [place], [address], 06/04/2023 20:09:00 06/04/1906/04/2023 CBC, NO DIFFE RENTI AL/PL ATELE T hematocrit 46.1 % 34.0-4 6.6 Not Available [facility] [address] [place], [address], 06/04/2023 20:09:00 06/04/1906/04/2023 CBC, NO DIFFE RENTI AL/PL ATELE T MCV 93 fL 79-97 Not Available [facility] [address] [place], [address], 06/04/2023 20:09:00 06/04/1906/04/2023 CBC, NO DIFFE RENTI AL/PL ATELE T MCH 29.9 pg 26.6-3 3.0 Not Available [facility] [address] [place], [address], 06/04/2023 20:09:00 06/04/1906/04/2023 CBC, NO DIFFE RENTI AL/PL ATELE T MCHC 32.3 g/dL 31.5-3 5.7 Not Available [facility] [address] [place], [address], 06/04/2023 20:09:00 06/04/1906/04/2023 CBC, NO DIFFE RENTI AL/PL ATELE T RDW 13.0 % 11.5-1 4.5 Not Available [facility] [address] [place], [address], 06/04/2023 20:09:00 06/04/19 24 06/04/2023 CBC, NO DIFFE RENTI AL/PL ATELE T NRBC 0 % 0-0 Not Available [facility] [address] [place], [address], 06/04/2023 20:09:00 06/04/19 24 06/05/2023 TSH RFX ON ABNOR MAL TO FREE T4 TSH 2.140 uIU/m L 0.450- 4.500 Not Available [facility] ([facility]) [address] [facility], [place], [address], 06/05/2023 06:17:39 06/04/1906/05/2023 HEMOG LOBIN A1C hemoglobin A1C 5.1 % 4.8-5. 6 Predi abete s: 5.7 - 6.4 Diabe omid: >6.4 Glyce sergio contr ol for adult s with diabe omid: <7.0 Not Available [facility] ([facility]) [address] [facility], [place], [address], 06/05/2023 06:17:40 06/04/19 24 06/05/2023 VITAM IN D, 25-HY DROXY vitamin D, 25-hydroxy 20.2 NG/mL 30.0-1 00.0 below low normal Vitam in D defic iency has been defin ed by the Insti tute of Medic ine and an Endoc rine Socie ty pract ice guide line as a level of serum 25-OH vitam in D less than 20 ng/mL (1,2) . The Endoc rine Socie ty went on to furth er defin e vitam in D insuf ficie ncy as a level betwe en 21 and 29 ng/mL (2). 1. IOM (Inst itute of Medic ine). 2009. Dieta ry refer ence adriana es for calci um and D. Yocasta tolentino [place]: The [facility]io [facility] Press . 2. Albertina latif MF, Binkl ey [place], Bridgette off-F errar i WILDE, et al. Evalu ation , treat ment, and preve ntion of vitam in D defic iency : an Endoc rine Socie ty clini gale pract ice guide line. JCEM. 2010; 96(7) :1911 -30. Not Available [facility] ([facility]) [address] [facility], [place], [address], 06/05/2023 06:17:41 06/27/19 24 06/28/2023 NUSWA B VAGIN ITIS PLUS (VG+) atopobium vaginae Low - 0 score Not Available [facility] ([facility]) [address] [facility], [place], [address], 06/29/2023 07:37:29 06/27/1906/28/2023 NUSWA B VAGIN ITIS PLUS (VG+) bvab 2 Low - 0 score Not Available [facility] ([facility]) [address] [facility], [place], [address], 06/29/2023 07:37:29 06/27/19 24 06/28/2023 NUSWA B VAGIN ITIS PLUS (VG+) megasphaera 1 Low - 0 score Calcu late total score by orlando lopes the 3 indiv idual bacte rial vagin osis (BV) marke r score s toget her. Total score is inter prete d as follo ws: Total score 0-1: Indic ates the absen ce of BV. Total score 2: Indet ermin ate for BV. Addit ional clini gale data shoul d be evalu ated to estab jason a diagn osis. Total score 3-6: Indic ates the prese nce of BV. This test was devel oped and its perfo rmanc e amanda cteri stics deter mined by [facility]. It has not been clear ed or appro vickey by the Food and Drug Admin istra tion. Not Available [facility] ([facility]) [address] [facility], [place], [address], 06/29/2023 07:37:29 06/27/19 24 06/28/2023 NUSWA B VAGIN ITIS PLUS (VG+) giana albicans, JUNIOR Negati ve negati ve Not Available [facility] ([facility]) [address] [place], [address], 06/29/2023 07:37:29 06/27/19 24 06/28/2023 NUA B VAGIN ITIS PLUS (VG+) giana glabrata, JUNIOR Negati ve negati ve Not Available [facility] ([facility]) [address] [place], [address], 06/29/2023 07:37:29 06/27/19 24 06/29/2023 NUA B VAGIN ITIS PLUS (VG+) trich vag by JUNIOR Negati ve negati ve Not Available [facility] ([facility]) [address] [place], [address], 06/29/2023 07:37:29 06/27/19 24 06/29/2023 NUA B VAGIN ITIS PLUS (VG+) chlamydia trachomatis, JUNIOR Negati ve negati ve Not Available [facility] ([facility]) [address] [place], [address], 06/29/2023 07:37:29 06/27/19 24 06/29/2023 NUA B VAGIN ITIS PLUS (VG+) neisseria gonorrhoeae, JUNIOR Negati ve negati ve Not Available [facility] ([facility]) [address] [place], [address], 06/29/2023 07:37:29 06/27/19 24 07/02/2023 IGP, RFX APTIM A HPV ASCU diagnosis: Commen t NEGAT GET FOR INTRA EPITH ELIAL LESIO N OR MALIG WENDY . THIS SPECI MEN WAS RESCR EENED PART OF OUR QUALI TY CONTR OL PROGR AM. Not Available [facility] ([facility]) [address] [place], [address], 07/02/2023 16:37:01 06/27/19 24 07/02/2023 IGP, RFX APTIM A HPV ASCU specimen adequacy: Jaspreet hdz Satis facto ry for evalu ation . Endoc ervic al and/o r squam ous metap lasti c cells (endo cervi gale compo nent) are prese nt. Not Available [facility] ([facility]) [address] [place], [address], 07/02/2023 16:37:01 06/27/19 24 07/02/2023 IGP, RFX APTIM A HPV ASCU clinician provided ICD10: Jaspreet hdz Z12.4 L29.3 Not Available [facility] ([facility]) [address] [place], [address], 07/02/2023 16:37:01 06/27/19 24 07/02/2023 IGP, RFX APTIM A HPV ASCU performed by: Jaspreet mora, Cytot echno logis t (ASCP ) Not Available [facility] ([facility]) [address] [place], [address], 07/02/2023 16:37:01 06/27/19 24 07/02/2023 IGP, RFX APTIM A HPV ASCU QC reviewed by: Jaspreet Rodriguez ams, Cytot echno logis t (ASCP ) Not Available [facility] ([facility]) [address] [place], [address], 07/02/2023 16:37:01 06/27/19 24 07/02/2023 IGP, RFX APTIM A HPV ASCU . . Not Available [facility] ([facility]) [address] [place], [address], 07/02/2023 16:37:01 06/27/19 24 07/02/2023 IGP, RFX APTIM A HPV ASCU note: Jaspreet hdz The Pap smear is a scree waqas test desig sarah to aid in the detec tion of jenny ligna nt and malig nant condi tions of the uteri ne cervi x. It is not a diagn ostic proce dure and shoul d not be used as the sole means of detec ting cervi gale cance r. Both false -posi tive and false -nega tive repor ts do occur . Not Available [facility] ([facility]) [address] [place], [address], 07/02/2023 16:37:01 06/27/19 24 07/02/2023 IGP, RFX APTIM A HPV ASCU test methodology: Commen t This liqui d based ThinP rep(R ) pap test was scree sarah with the use of an image guide rosibel granger. Not Available [facility] ([facility]) [address] [place], [address], 07/02/2023 16:37:01 06/27/19 24 07/02/2023 IGP, RFX APTIM A HPV ASCU . Commen t The HPV DNA refle x crite disha were not met with this speci men resul t there fore, no HPV testi ng was perfo rmed. Not Available [facility] ([facility]) [address] [place], [address], 07/02/2023 16:37:01 05/05/19 25 05/06/2024 LIPID PANEL cholesterol, total 180 mg/dL 100-19 9 Not Available [facility] ([facility]) [address] [place], [address], 05/06/2024 09:15:07 05/05/19 25 05/06/2024 LIPID PANEL triglyceride s 125 mg/dL 0-149 Not Available [facility] ([facility]) [address] [place], [address], 05/06/2024 09:15:07 05/05/19 25 05/06/2024 LIPID PANEL HDL cholesterol 50 mg/dL >39 Not Available [facility]) [address] [facility] [place], [address], 05/06/2024 09:15:07 05/05/19 25 05/06/2024 LIPID PANEL VLDL cholesterol gale 22 mg/dL 5-40 Not Available [facility]) [address] [facility] [place], [address], 05/06/2024 09:15:07 05/05/19 25 05/06/2024 LIPID PANEL LDL chol calc ([facility]) 108 mg/dL 0-99 above high normal Not Available [facility] ([facility]) [address] [facility] [place], [address], 05/06/2024 09:15:07 05/05/19 25 05/06/2024 COMP. METAB OLIC PANEL (14) glucose 72 mg/dL 70-99 Not Available [facility] ([facility]) [address] [facility] [place], [address], 05/06/2024 09:15:09 05/05/19 25 05/06/2024 COMP. METAB OLIC PANEL (14) BUN 10 mg/dL 6-20 Not Available [facility] ([facility]) [address] [place], [address], 05/06/2024 09:15:09 05/05/19 25 05/06/2024 COMP. METAB OLIC PANEL (14) creatinine 0.77 mg/dL 0.57-1 .00 Not Available [facility] ([facility]) [address] [facility] [place], [address], 05/06/2024 09:15:09 05/05/19 25 05/06/2024 COMP. METAB OLIC PANEL (14) eGFR 111 mL/mi n/1.7 3 >59 Not Available [facility] ([facility]) [address] [place], [address], 05/06/2024 09:15:09 05/05/19 25 05/06/2024 COMP. METAB OLIC PANEL (14) BUN/creatini ne ratio 13 9-23 Not Available [facility] ([facility]) [address] [facility], [place], [address], 05/06/2024 09:15:09 05/05/19 25 05/06/2024 COMP. METAB OLIC PANEL (14) sodium 143 mmol/ L 134-14 4 Not Available [facility] ([facility]) [address] [place], [address], 05/06/2024 09:15:09 05/05/19 25 05/06/2024 COMP. METAB OLIC PANEL (14) potassium 4.0 mmol/ L 3.5-5. 2 Not Available [facility] ([facility]) [address] [place], [address], 05/06/2024 09:15:09 05/05/19 25 05/06/2024 COMP. METAB OLIC PANEL (14) chloride 102 mmol/ L 96-106 Not Available [facility] ([facility]) [address] [place], [address], 05/06/2024 09:15:09 05/05/19 25 05/06/2024 COMP. METAB OLIC PANEL (14) carbon dioxide, total 25 mmol/ L 20-29 Not Available [facility] ([facility]) [address] [place], [address], 05/06/2024 09:15:09 05/05/19 25 05/06/2024 COMP. METAB OLIC PANEL (14) calcium 9.7 mg/dL 8.7-10 .2 Not Available [facility] ([facility]) [address] [place], [address], 05/06/2024 09:15:09 05/05/19 25 05/06/2024 COMP. METAB OLIC PANEL (14) protein, total 7.1 g/dL 6.0-8. 5 Not Available [facility] ([facility]) [address] [facility] [place], [address], 05/06/2024 09:15:09 05/05/19 25 05/06/2024 COMP. METAB OLIC PANEL (14) albumin 4.5 g/dL 4.0-5. 0 Not Available [facility] ([facility]) [address] [facility] [place], [address], 05/06/2024 09:15:09 05/05/19 25 05/06/2024 COMP. METAB OLIC PANEL (14) globulin, total 2.6 g/dL 1.5-4. 5 Not Available [facility] ([facility]) [address] [facility] [place], [address], 05/06/2024 09:15:09 05/05/19 25 05/06/2024 COMP. METAB OLIC PANEL (14) bilirubin, total 0.6 mg/dL 0.0-1. 2 Not Available [facility] ([facility]) [address] [facility] [place], [address], 05/06/2024 09:15:09 05/05/19 25 05/06/2024 COMP. METAB OLIC PANEL (14) alkaline phosphatase 71 IU/L 44-121 Not Available [facility] ([facility]) [address] [facility] [place], [address], 05/06/2024 09:15:09 05/05/19 25 05/06/2024 COMP. METAB OLIC PANEL (14) AST (SGOT) 15 IU/L 0-40 Not Available [facility] ([facility]) [address] [facility] [place], [address], 05/06/2024 09:15:09 05/05/19 25 05/06/2024 COMP. METAB OLIC PANEL (14) ALT (SGPT) 25 IU/L 0-32 Not Available [facility] ([facility]) [address] [facility] [place], [address], 05/06/2024 09:15:09 05/05/19 25 05/06/2024 TSH RFX ON ABNOR MAL TO FREE T4 TSH 1.090 uIU/m L 0.450- 4.500 Not Available [facility] ([facility]) [address] [facility] [place], [address], 05/06/2024 09:15:11 05/05/19 25 05/06/2024 VITAM IN B12 AND FOLAT E vitamin B12 583 pg/mL 232-12 45 Not Available [facility] ([facility]) [address] [facility], [place], [address], 05/06/2024 09:15:12 05/05/19 25 05/06/2024 VITAM IN B12 AND FOLAT E folate (folic acid), serum 7.6 NG/mL >3.0 A serum folat e michael ntrat ion of less than 3.1 ng/mL is consi dered to repre sent clini gale defic iency . Not Available [facility] ([facility]) [address] [facility], [place], [address], 05/06/2024 09:15:12 05/05/19 25 05/06/2024 HEMOG LOBIN A1C hemoglobin A1C 5.4 % 4.8-5. 6 Predi abete s: 5.7 - 6.4 Diabe omid: >6.4 Glyce sergio contr ol for adult s with diabe omid: <7.0 Not Available [facility] ([facility]) [address] [place], [address], 05/06/2024 09:15:13 05/05/19 25 05/06/2024 MAGNE SIUM magnesium 2.2 mg/dL 1.6-2. 3 Not Available [facility] ([facility]) [address] [place], [address], 05/06/2024 09:15:14 05/05/19 25 05/06/2024 PRECIOUS TIN ferritin 116 NG/mL 15-150 Not Available [facility] ([facility]) [address] [facility], [place], [address], 05/06/2024 09:15:16 05/05/1905/06/2024 CBC, PLATE LET, NO DIFFE RENTI AL WBC 6.8 x10e3 /uL 3.4-10 .8 Not Available [facility] ([facility]) [address] [facility], [place], [address], 05/06/2024 09:15:17 05/05/1905/06/2024 CBC, PLATE LET, NO DIFFE RENTI AL RBC 4.92 x10e6 /uL 3.77-5 .28 Not Available [facility] ([facility]) [address] [facility], [place], [address], 05/06/2024 09:15:17 05/05/1905/06/2024 CBC, PLATE LET, NO DIFFE RENTI AL hemoglobin 14.9 g/dL 11.1-1 5.9 Not Available [facility] ([facility]) [address] [facility], [place], [address], 05/06/2024 09:15:17 05/05/1905/06/2024 CBC, PLATE LET, NO DIFFE RENTI AL hematocrit 45.9 % 34.0-4 6.6 Not Available [facility] ([facility]) [address] [facility], [place], [address], 05/06/2024 09:15:17 05/05/1905/06/2024 CBC, PLATE LET, NO DIFFE RENTI AL MCV 93 fL 79-97 Not Available [facility] ([facility]) [address] [place], [address], 05/06/2024 09:15:17 05/05/1905/06/2024 CBC, PLATE LET, NO DIFFE RENTI AL MCH 30.3 pg 26.6-3 3.0 Not Available [facility] ([facility]) [address] [facility], [place], [address], 05/06/2024 09:15:17 05/05/19 25 05/06/2024 CBC, PLATE LET, NO DIFFE RENTI AL MCHC 32.5 g/dL 31.5-3 5.7 Not Available [facility] ([facility]) [address] [place], [address], 05/06/2024 09:15:17 05/05/1905/06/2024 CBC, PLATE LET, NO DIFFE RENTI AL RDW 12.3 % 11.7-1 5.4 Not Available [facility] ([facility]) [address] [place], [address], 05/06/2024 09:15:17 05/05/1905/06/2024 CBC, PLATE LET, NO DIFFE RENTI AL platelets 309 x10e3 /uL 150-45 0 Not Available [facility] ([facility]) [address] [place], [address], 05/06/2024 09:15:17 05/05/1905/06/2024 VITAM IN D, 25-HY DROXY vitamin D, 25-hydroxy 21.5 NG/mL 30.0-1 00.0 below low normal Vitam in D defic iency has been defin ed by the Insti tute of Medic ine and an Endoc rine Socie ty pract ice guide line as a level of serum 25-OH vitam in D less than 20 ng/mL (1,2) . The Endoc rine Socie ty went on to furth er defin e vitam in D insuf ficie ncy as a level betwe en 21 and 29 ng/mL (2). 1. IOM (Inst itute of Medic ine). 2010. Dieta ry refer ence intak es for calci um and D. Yocasta tolentino [place]: The [facility] . 2. Albertina latif MF, Abdiaziz khanna [place], Bridgette off-F errar i WILDE, et al. Evalu ation , treat ment, and preve ntion of vitam in D defic iency : an Endoc rine Socie ty clini gale pract ice guide line. JCEM. 2010; 96(7) :1911 -30. Not Available [facility] ([facility]) [address] [facility], [place], [address], 05/06/2024 09:15:18 12/11/1912/10/2023 MRI, lumba r spine , w/o contr ast No observ ation record ed. [address] [place], [address], 12/13/2023 14:18:10 01/07/20 24 01/03/2024 US, leann huang No observ ation record ed. [address] [place], [address], 01/08/2024 17:30:04 Result Notes None recorded. Problems Name Problem SNOMED Code Status Onset Date Resolution Date Notes Provider Name and Address Organization Details Recorded Time Todd huang 61869857 Completed 01/09/2017 Kaushik black [place] - [facility] 7 14:40:52 History of asthma 941183722 Active 2018 Larry black, [place] - [place] 9 10:22:33 Unintenti onal weight gain 922138852403 104 Active 2021 Celeste Berrios APN, FNP-C Attn: Mireya g,[address] [facility], [place], [address], [facility] - [facility] 2 09:39:27 Obesity 659534130 Active 2021 Celeste Berrios APN, FNP-C Attn: Mireya g,[address] [facility], [place], [address], [place] - [facility] 2 16:18:53 Posterior rhinorrhe a 12366130 Active 2021 Celeste Berrios APN, FNP-C Attn: Mireya marianne,[address] [facility], [place], [address], [place] - [facility] 2 17:24:16 Dysfuncti on of eustachia n tube 11574435 Active 2021 Celeste Berrios APN, FNP-C Attn: Mireya marianne,[address] [facility], [place], [address], [place] - [facility] 2 14:16:13 Headache 03552990 Completed 01/09/2017 [place] - [facility] 7 14:40:40 Obesity 688775573 Completed 02/07/2017 Celeste Berrios APN, FNP-C Attn: Mireya marianne,[address] [facility], [place], [address], [place] - [facility] 2 16:18:54 Sciatica 32925365 Active 2022 Celeste Berrios APN, FNP-C Attn: Jhonycharmaine lopes,[address] [facility], [place], [address], [place] - [facility] 3 15:00:27 Low back pain 093973977 Completed 01/09/2017 [place] - [facility] 7 14:40:43 Vitamin D deficienc y 14542810 Active Uraiwan Hompluem [place] - [facility] 6 12:07:09 Overweigh t 878161352 Completed 01/09/2017 [place] [facility] 7 14:40:46 Myopia 46666332 Completed 01/09/2017 [place] [facility] 7 14:40:55 Upper respirato ry infection 11262919 Completed 01/09/2017 [place] [facility] 7 14:40:49 Mild intermitt ent asthma 430246188 Active Uraiwamorgan Gilbertpluem sofia, [place] - [facility] 6 12:07:09 Impacted cerumen 21418194 Completed 01/09/2017 Kaushik Matosg sofia [place] - [facility] 7 14:40:36 Hand foot and mouth disease 980941585 Completed 01/09/2017 Kuashik black [facility] 7 14:40:39 Problem Notes None recorded. Procedures Surgical History Date Name Laterality Status Provider Name and Address Organization Details Recorded Time 7 Nebulizer tx completed Uraiwan Hompluem [place] - [place] 05/23/2016 17:58:02 7 Nebulizer tx completed Uraiwan Vladimirpluem [place] - [facility] 05/22/2016 17:49:08 6 [facility]/22/2016 14:35:02 Imaging Results Imaging Date Name Status LastModified by Organiz ation Details LastModified Time 12/10/2023 MRI, lumbar spine, w/o contrast completed [address] [place], [address], 12/13/2023 14:18:10 01/03/2024 US, gallbladder completed [address] [place], [address], 01/08/2024 17:30:04 Procedure Notes None recorded. Medical Equipment None Reported. Allergies No known drug allergies Medications Name Sig Start Date Stop Date Status Note LastModified by Organization Details LastModified Time Singulair 10 mg tablet Take 1 tablet every day by oral route. 11/12 completed Not Available Not Available Not Available cyclobenzap rine 10 mg tablet 06/03 completed prn Not Available Not Available Not Available amoxicillin 500 mg capsule TAKE 1 CAPSULE BY MOUTH EVERY 8 HOURS FOR 7 DAYS 01/02 completed Not Available Not Available Not Available naproxen 375 mg tablet 06/09 completed Not Available Not Available Not Available albuterol sulfate 2.5 mg/3 mL (0.083 %) solution for nebulizatio n Inhale 3 mL by nebulizat ion route as needed for wheezing. 11/14 completed Not Available Not Available Not Available cetirizine 10 mg tablet TAKE 1 TABLET BY MOUTH EVERY NIGHT AT BEDTIME 11/27 completed Not Available Not Available Not Available azithromyci n 250 mg tablet Take 2 tab 1st d ,then 1 daily 4d by oral route. 01/09 completed Not Available Not Available Not Available ibuprofen 800 mg tablet 06/03 completed Not Available Not Available Not Available ofloxacin 0.3 % eye drops 11/22 completed Not Available Not Available Not Available tizanidine 4 mg tablet 11/27 completed Not Available Not Available Not Available prednisone 20 mg tablet Take 3 tablets every day by oral route for 5 days. 12/15 completed Not Available Not Available Not Available Debrox 6.5 % ear drops INSTILL 5 DROPS INTO AFFECTED EAR(S) BY OTIC ROUTE 2 TIMES PER DAY x 4 days 2024 active Not Available Not Available Not Avai lable tramadol 50 mg tablet TAKE 1 TABLET BY MOUTH EVERY 8 HOURS NEEDED FOR PAIN NOT RELIEVED BY DEXAMETHA SONE ALONE. TAKE WITH 500MG TO 650MG OF ACETAMINO PHEN. 11/27 completed Not Available Not Available Not Available ofloxacin 0.3 % ear drops INSTILL 10 DROPS IN BOTH EARS DAILY FOR 7 DAYS 11/27 completed Not Available Not Available Not Available amoxicillin 875 mg tablet Take 1 tablet twice a day by oral route for 10 days. 03/28 completed Not Available Not Available Not Available dexamethaso ne 4 mg tablet 11/27 completed Not Available Not Available Not Available sulfamethox azole 200 mg-trimetho prim 40 mg/5 mL oral suspension 03/22 completed Not Available Not Available Not Available docusate sodium 100 mg capsule Take 1 capsule every day by oral route as needed. 12/15 completed Not Available Not Available Not Available Banophen 25 mg capsule 11/12 completed Not Available Not Available Not Available mupirocin 2 % topical ointment APPLY TOPICALLY TO THE AFFECTED AREA TWICE DAILY FOR 7 DAYS 05/05 completed Not Available Not Available Not Available ergocalcife rol (vitamin D2) 1,250 mcg (50,000 unit) capsule TAKE 1 CAPSULE BY MOUTH EVERY WEEK 06/03 completed Not Available Not Available Not Available ibuprofen 600 mg tablet TK 1 T PO TID PRN 05/25 completed Not Available Not Available Not Available polyethylen e glycol 3350 17 gram/dose oral powder Dissolve 1 capful dissolved in 8 oz. of water of juice and drink every evening. 11/12 completed Not Available Not Available Not Available ibuprofen 100 mg/5 mL oral suspension 01/09 completed Not Available Not Available Not Available albuterol sulfate HFA 90 mcg/actuati on aerosol inhaler INHALE 2 PUFFS BY MOUTH EVERY 4 HOURS NEEDED FOR WHEEZING active Not Available Not Available No t Available ketoconazol e 2 % topical cream apply small amount to rash bid for 1m 05/22 completed Not Available Not Available Not Available Peak Air Peak Flow Meter 11/14 completed Not Available Not Available Not Available fluticasone propionate 50 mcg/actuati on nasal spray,suspe nsion SHAKE LIQUID AND USE 2 SPRAYS IN EACH NOSTRIL EVERY DAY 11/27 completed Not Available Not Available Not Available ipratropium bromide 0.02 % solution for inhalation Inhale 2.5 mL every 6 hours by inhalatio n route prn for croup for 10 days. 11/14 completed Not Available Not Available Not Available amoxicillin 875 mg-potassiu m clavulanate 125 mg tablet TAKE 1 TABLET BY MOUTH EVERY 12 HOURS 11/27 completed Not Available Not Available Not Available neomycin-po lymyxin-hyd rocort 3.5 mg-10,000 unit/mL-1 % ear drops,susp INSTILL 4 DROPS IN EACH EAR EVERY 8 HOURS FOR 7 DAYS active Not Available Not Available No t Available cyclobenzap rine 5 mg tablet TK 1 T PO TID PRN 04/01 completed Not Available Not Available Not Available ciprofloxac in 0.3 %-dexametha sone 0.1 % ear drops,suspe nsion INSTILL ONE DROP IN EACH EAR EVERY 12 HOURS X 7 DAYS 05/05 completed Not Available Not Available Not Available cholecalcif luis (vitamin D3) 1,250 mcg (50,000 unit) capsule TAKE ONE CAPSULE BY MOUTH EVERY WEEK active Not Available Not Available No t Available Aerochamber Plus Flow-Vu 11/14 completed Not Available Not Available Not Available Virtussin AC 10 mg-100 mg/5 mL oral liquid 01/09 completed Not Available Not Available Not Available ID NOW COVID-19 Test Kit TEST DIRECTED TODAY 05/25 completed Not Available Not Available Not Available COVID-19 test specimen collection TEST DIRECTED TODAY 05/25 completed Not Available Not Available Not Available Chest Congestion Relief DM 10 mg-100 mg/5 mL oral syrup TAKE 10ML BY MOUTH FOUR TIMES DAILY NEEDED FOR COUGH 05/05 completed Not Available Not Available Not Available Vitals Date Recorded Body height Body mass index (BMI) Body weight Oxygen saturation Oxygen saturation in Arterial blood by Pulse oximetry Heart rate Respiratory rate Body temperature Systolic blood pressure Diastolic blood pressure Provider Name and Address Organization Details Last Updated DateTime 3 160.02 cm 32.4 kg/m2 31774.4 g 97 % 97 % 102 /min 16 /min 98 [degF] 110 mm[Hg] 86 mm[Hg] Gillian Mendieta [facility] 3 14:51:51 Date Recorded Body height Body mass index (BMI) Body weight Oxygen saturation Oxygen saturation in Arterial blood by Pulse oximetry Heart rate Respiratory rate Body temperature Systolic blood pressure Diastolic blood pressure Provider Name and Address Organization Details Last Updated DateTime 4 160.02 cm 30.6 kg/m2 71112.4 8 g 98 % 98 % 96 /min 16 /min 98 [degF] 126 mm[Hg] 74 mm[Hg] BRIANDA Mrurieta [facility] 4 10:54:00 Date Recorded Body height Body mass index (BMI) Body weight Heart rate Respiratory rate Body temperature Systolic blood pressure Diastolic blood pressure Provider Name and Address Organization Details Last Updated DateTime 4 160.02 cm 30.3 kg/m2 53070.6 5 g 78 /min 16 /min 98.7 [degF] 116 mm[Hg] 75 mm[Hg] Comfort Bill MA [facility] 4 14:08:23 Date Recorded Body height Body mass index (BMI) Body weight Oxygen saturation Oxygen saturation in Arterial blood by Pulse oximetry Respiratory rate Body temperature Heart rate Systolic blood pressure Diastolic blood pressure Provider Name and Address Organization Details Last Updated DateTime 4 160.02 cm 32.2 kg/m2 66235.8 1 g 98 % 98 % 16 /min 98.2 [degF] 84 /min 116 mm[Hg] 84 mm[Hg] BRIANDA Murrieta [facility] 4 15:14:53 Date Recorded Body height Body mass index (BMI) Body weight Oxygen saturation Oxygen saturation in Arterial blood by Pulse oximetry Respiratory rate Body temperature Heart rate Systolic blood pressure Diastolic blood pressure Provider Name and Address Organization Details Last Updated DateTime 5 160.02 cm 32.4 kg/m2 35403.4 g 98 % 98 % 16 /min 97.5 [degF] 84 /min 124 mm[Hg] 80 mm[Hg] Gillian Mendieta Nubia [facility] 5 15:53:32 Social History Question Answer Notes LastModified by Organizat ion Details LastModified Time Tobacco Smoking Status Never Smoker Evy Ingram MA [facility], [facility] 03/23/2014 14:51:40 Do You Have An Advance Directive? No Information not available 06/10/2019 What Is Your Level Of Alcohol Consumption? None [email or web address] Information not available 11/12/2018 Animal Exposure? No Informa tion not available 12/30/2015 Do You Wear A Helmet When Biking? No [email or web address] Information not available 03/23/2014 Are You Blind Or Do You Have Difficulty Seeing? No [email or web address] Information not available 05/27/2020 Are You Or Have You Been Involved With Bullying? No Information not available 03/23/2014 What Is Your Level Of Caffeine Consumption? Occasional [email or web address] Information not available 05/27/2020 How Much Tobacco Do You Chew? None Information not available 06/10/2019 What Type Of Machine Inspector Do You Use? None [email or web address] Information not available 03/23/2014 In The 14 Days Before Symptom Onset, Have You Had Close Contact With A Laboratory-[email or web address] rmed COVID-19 While That Case Was Ill? No Information not available 06/10/2019 In The 14 Days Before Symptom Onset, Have You Had Close Contact With A Person Who Is Under Investigation For COVID-19 While That Person Was Ill? No Information not available 06/10/2019 Have You Been To An Area Known To Be High Risk For COVID-19? No Information not available 06/10/2019 Are You Currently Employed? Yes Information not available 06/04/2023 Are You Deaf Or Do You Have Serious Difficulty Hearing? No [email or web address] Information not available 05/27/2020 What Type Of Diet Are You Following? REGULAR Information not available 03/23/2014 Which Illicit Or Recreational Drugs Have You Used? Denied Information not available 06/10/2019 Do You Or Have You Ever Used E-cigarettes Or Vape? Never Used Electronic Cigarettes Information not available 06/10/2019 Education 12 [employer] Information not available 06/10/2019 What Is Your Occupation? [employer] Information not available 05/05/2024 Have There Been Any Changes To Your Family Or Social Situation? No [email or web address] Information not available 03/23/2014 What Is The Fluoride Status Of Your Home? Fluoridated [email or web address] Information not available 12/30/2015 Are There Any Guns Present In Your Home? No [email or web address] Information not available 03/23/2014 Hard Of Hearing Or Deaf In One Or Both Ears? No Information not available 06/10/2019 What Is Your Home Situation? Both Parents Parents, 2 Brothers [email or web address] Information not available 07/21/2014 Do You Use Insect Repellent Routinely? Yes [email or web address] Information not available 03/23/2014 Legally Blind In One Or Both Eyes? No Information not available 06/10/2019 Marital Status Single Informatio n not available 06/10/2019 What Was The Date Of Your Most Recent Tobacco Screening? 05/05/2024 Information not available 05/05/2024 What Is Your Parents' Marital Status? [email or web address] Information not available 03/23/2014 Performs Monthly Self-breast Exam? No Information not available 06/10/2019 Pool Exposure No [email or web address] Informatio n not available 03/23/2014 What Is Your Relationship Status? Single [email or web address] Information not available 05/27/2020 What Is The Name Of Your School? [employer] Information not available 12/15/2020 Do You Use Your Seat Belt Or Car Seat Routinely? Yes [email or web address] Information not available 05/27/2020 Seat Belts Used Routinely Yes Information not available 06/10/2019 Are You Sexually Active? No [email or web address] Information not available 05/27/2020 Do You Have Any Siblings? 2 Brothers [email or web address] Information not available 03/23/2014 Smoke Alarm In Home Yes Information not available 06/10/2019 Do You Have Smoke And Carbon Monoxide Detectors In Your Home? Yes [email or web address] Information not available 03/23/2014 Are You Passively Exposed To Smoke? Yes Mom And Dad Smoke Outside [email or web address] Information not available 03/23/2014 Do You Or Have You Ever Used Smokeless Tobacco? Never Used Smokeless Tobacco Information not available 06/10/2019 How Much Tobacco Do You Smoke? No Information not available 06/10/2019 What Types Of Sporting Activities Do You Participate In? None Information not available 03/23/2014 General Stress Level Medium Information not available 06/10/2019 Do You Feel Stressed (tense, Restless, Nervous, Or Anxious, Or Unable To Sleep At Night)? [id number] Information not available 05/05/2024 Do You Use Any Illicit Or Recreational Drugs? No [email or web address] Information not available 05/27/2020 Do You Use Sunscreen Routinely? Yes [email or web address] Information not available 03/23/2014 Has Tobacco Cessation Counseling Been Provided? No [email or web address] Information not available 05/25/2021 Year In School 12 [email or web address] Informati on not available 03/28/2018 Do You Or Have You Ever Used Any Other Forms Of Tobacco Or Nicotine? No [email or web address] Information not available 06/15/2021 Sex: Female Functional Status Question Answer Note LastModified by Organization D etails LastModified Time Are you able to care for yourself? Yes [email or web address] Information n ot available 05/27/2020 What is your exercise level? None Information not available 11/28/2023 Mental Status None recorded. Family History Relationship Description Onset Age of this Age Resolved Age Notes LastModified by Organization Details LastModified Time Father Diabetes mellitus [email or web address] Not available 04/25 15:51:53 Medical History Condition Response Coronary Artery Disease N High Blood Pressure N Atrial Fibrillation N Blood Diseases N Depression N COPD N Blood Clots N Developmental or Behavioral Disorders N Premature N Anxiety Disorder N Muscle, Joint, or Bone Problems N Vision or Eye Problems N Head Injury/Concussion N Acid Reflux (GERD) N Cancer N Stroke N ADHD N Bladder or Kidney Problems N High Cholesterol N Liver Disease N Headaches N Ear or Hearing Problems N Thyroid Problems N Kidney or Bladder Problems N GI Problems N Eating Disorder N Skin Problems N Anemia N Constipation N Heart Attack ([place]) N Diabetes N Bedwetting N Heart Problems/Murmur N Seizures/Epilepsy N Asthma N Allergies N Hepatitis N Chicken Pox N Heart Failure N Autism Spectrum Disorder (ASD) N Osteoporosis N Gynecological History Statement/Question Response Flow Light Date of LMP 04/28/2024 Frequency of Cycle (Q days) 28 Menses Monthly Y Duration of Flow (days) 5 Age at Menarche 14 Current Control Method None LMP Definite Obstetrics History GPAL:G 0 P 0 0 0 0 Type Value Multiple Births 0 Full Term 0 Induced 0 Spontaneous 0 Premature 0 Living 0 Ectopics 0 Total 0 Immunizations Vaccine Type Date Status Note Provider Nam e and Address Organization Details Recorded Time Influenza, split virus, quadrivalent, PF 6 completed Not Available [facility] 04/11/2019 02:32:33 meningococcal MCV4, unspecified formulation 4 completed Not Available [facility] 11/25/2022 06:58:28 IPV 1 completed Celeste Berrios APN, FNP-C Attn: [address] [place], [address], [facility] 06/04/2023 11:00:15 pneumococcal conjugate PCV 7 1 completed Celeste Berrios APN, FNP-C Attn: [address] [place], [address], [facility] 06/04/2023 11:00:15 Tdap 4 completed Celeste Berrios, FORM TAMPER OPERATOR, [employer] OPERATOR-C Attn: [address] [facility], [place], [place], [address] [place] [address], [facility] 06/04/2023 11:00:15 Novel [id number], all formulations 0 completed Celeste Berrios, FORM TAMPER OPERATOR, [employer] OPERATOR-C Attn: [address] [facility], [place], [place], [address] [place] [address], [facility] - [facility] 06/04/2023 11:00:15 influenza, split (incl. purified surface antigen) 0 completed Celeste Berrios, FORM TAMPER OPERATOR, [employer]PER[employer]-C Attn: [address]ing[address] [facility], [place], [place], [address] [place] [address], [facility] 06/04/2023 11:00:15 Td (adult), 5 Lf tetanus toxoid, preservative free, adsorbed 2 completed Celeste Berrios, FORM TAMPER OPERATOR, [employer]-C Attn: [address] [facility], [place], [place], [address] [place] [address], [facility] - [facility] 06/04/2023 11:00:16 Hep A, pediatric, unspecified formulation 0 completed Celeste Berrios, FORM TAMPER OPERATOR, CARNALLITE PLANT OPERATOR-C Attn: Accounting,204 1 [place], [place], [address] [place] [address], [facility] 06/04/2023 11:00:16 Hep A, pediatric, unspecified formulation 9 completed Celeste Berrios, FORM TAMPER OPERATOR, CARNALLITE PLANT OPERATOR-C Attn: Accounting,204 1 [place], [place], [address] [place] [address], [facility] 06/04/2023 11:00:16 meningococcal MCV4P 4 completed Celeste Berrios, FORM TAMPER OPERATOR, CARNALLITE PLANT OPERATOR-C Attn: Accounting,204 1 [place], [place], [address] [place] [address], [facility] 06/04/2023 11:00:16 Influenza, split virus, quadrivalent, PF 4 completed Celeste Berrios, FORM TAMPER OPERATOR, CARNALLITE PLANT OPERATOR-C Attn: Accounting,[address], [place], [address], [facility] - [facility] 06/04/2023 11:00:16 Meningococcal MCV4O 7 completed Not Available [facility] 04/11/2019 02:33:26 HPV, quadrivalent 5 completed Not Available [facility] 04/11/2019 02:46:38 Influenza, split virus, quadrivalent, PF 7 completed Not Available [facility] 04/11/2019 02:49:07 meningococcal B, OMV 7 completed Not Available [facility] 04/11/2019 02:34:49 Hib, unspecified formulation 2 completed Not Available [facility] 11/25/2022 06:58:28 varicella 9 completed Not Available [facility] 11/25/2022 06:58:28 Hep B, adolescent or pediatric 1 completed Not Available [facility] 11/25/2022 06:58:28 Hep A, ped/adol, 2 dose 0 completed Not Available [facility] 11/25/2022 06:58:28 DTaP 1 completed Not Available [facility] 11/25/2022 06:58:28 pneumococcal conjugate PCV 7 2 completed Not Available [facility] 11/25/2022 06:58:28 influenza, unspecified formulation 0 completed Not Available [facility] 11/25/2022 06:58:28 DTaP 1 completed Not Available [facility] 11/25/2022 06:58:28 MMR 2 completed Not Available [facility] 11/25/2022 06:58:28 DTaP 1 completed Not Available [facility] 11/25/2022 06:58:28 pneumococcal conjugate PCV 7 1 completed Not Available [facility] 11/25/2022 06:58:28 IPV 1 completed Not Available [facility] 11/25/2022 06:58:28 Hep A, ped/adol, 2 dose 9 completed Not Available [facility] 11/25/2022 06:58:28 Hep B, adolescent or pediatric 1 completed Not Available [facility] 11/25/2022 06:58:28 DTaP 2 completed Not Available [facility] 11/25/2022 06:58:28 Hib, unspecified formulation 1 completed Not Available [facility] 11/25/2022 06:58:28 IPV 1 completed Not Available [facility] 11/25/2022 06:58:28 IPV 5 completed Not Available [facility] 11/25/2022 06:58:28 varicella 2 completed Not Available [facility] 11/25/2022 06:58:28 Hib, unspecified formulation 1 completed Not Available [facility] 11/25/2022 06:58:27 DTaP 5 completed Not Available [facility] 11/25/2022 06:58:28 Hib, unspecified formulation 1 completed Not Available [facility] 11/25/2022 06:58:28 MMR 5 completed Not Available [facility] 11/25/2022 06:58:28 Hep B, adolescent or pediatric 1 completed Not Available [facility] 11/25/2022 06:58:28 meningococcal B, OMV 9 completed Not Available [facility] 04/11/2019 02:38:04 Tdap 5 completed BRIANDA [place], [place] [facility] 05/05/2024 16:24:13 HPV, quadrivalent 4 completed Celeste Berrios APN, CARNALLITE PLANT OPERATOR-C Attn: Accounting,[address] [facility], [place], [address], [place] [facility] 06/04/2023 11:00:16 Tdap 4 completed Not Available [facility] 04/11/2019 02:39:15 HPV, quadrivalent 4 completed Not Available [facility] 04/11/2019 02:48:34 Past Encounters Encounter ID Performer Location Encounter Start Date Encounter Closed Date Diagnosis/Indication Diagnosis SNOMED-CT Code Diagnosis ICD10 Code Diagnosis Note [id number] [facility] (Peds) [address] [place] [address] 03/23/2014 14:24:19 03/23/2014 15:42:33 Upper respiratory infection 76356854 supportive care, increase water, good hygiene, repeat temp 98.3, will get shts today Mild inter mittent asthma 914770492 instruct how to use med Impacted cerumen 57938173 wash ears daily [id number] [facility] (Peds) [address] [place] [address] 04/26/2014 14:30:15 04/26/2014 17:07:33 Upper respiratory infection 56675841 Supportive treatment. Hand hygiene. Fluid intake. Pityriasis versicolor 71815579 Antifungal shampoo to skin 3 x weekly. Stop when gone. [id number] Maryanne Amos MD [facility] (Peds) [address] [place] [address] 05/25/2014 09:32:55 05/25/2014 13:16:29 Active or passive immunization 765928417 [id number] [facility] (Peds) [address] [place] [address] 05/27/2014 12:05:48 05/27/2014 15:21:17 Headache 40701889 Differenti al dx. includes tension headaches vs. migraine headaches. Take ibuprofen q 6-8 hours prn headaches. Keep headache journal. Discussed ways to manage stress. Recommende d counseling , but pt. not interested at this time. Notify if headache worsens. Obesity 133704190 BMI 95 th %. Discussed diet changes and getting regular exercise. Will check screening labs. [id number] [facility] (Peds) [address] [place] [address] 07/21/2014 15:18:35 07/21/2014 17:00:19 Low back pain 808168986 xray today at [facility], supportive care, no running Mild inter mittent asthma 380973901 instruct how to use med [id number] Kathya Ross [facility] (Peds) [address] [place] [address] 07/29/2014 09:26:45 07/29/2014 14:43:38 Low back pain 753224751 supportive care, no running, good support shoes, back stretching exercise, referral to ortho in 3m, when pt come back from [place] Impacted cerumen 57054604 wash ears daily Mild inter mittent asthma 160974258 instruct how to use med [id number] [facility] (Peds) [address] [place] [address] 12/02/2014 09:28:31 12/02/2014 14:47:39 Well child 258019752 balanced diet and exercise, good hygiene, accident prevention , breast self exam dental hygiene, see dentist q 6-12m. Vitamin D deficiency 67679769 milk 2 cups/d, vit D 2000 unit/d, aerobic exercise 30 min/d, water 4-6 cups/d, no caffeine Overweight 726239040 dis cuss about healthy balanced diet and exercise, no sweet drink, increase water to 2-3 liters/d, skim milk 2 cup/d live an active life style, exercise 1 hr daily weight loss plan for 2lb/m Mild inter mittent asthma 020395272 instruct how to use med asthma action plan , pefr= 450 Impacted cerumen 26968818 wash ears daily Myopia 34666208 need glasses, pt has contact lenses and did well. [id number] [facility] (Peds) [address] [facility] [place] [address] 12/30/2015 10:48:35 12/30/2015 15:29:34 Hand foot and mouth disease 647331819 B08.4 reassure Mild inter mittent asthma 377124703 J45.20 instruct how to use med asthma action plan , pefr= 450 Impacted cerumen 9521230 6 H61.22 wash ears daily Overweight 878076823 E66 .3 discuss about healthy balanced diet and exercise, no sweet drink, increase water to 2-3 liters/d, skim milk 2 cup/d live an active life style, exercise 1 hr daily weight loss plan for 2lb/m Vitamin D deficiency 347 20044 E55.9 milk 2 cups/d, vit D 2000 unit/d, aerobic exercise 30 min/d, water 4-6 cups/d, no caffeine [id number] [facility] (Peds) [address] [place] [address] 03/22/2016 14:02:03 03/27/2016 16:16:54 Tinea corporis 03391324 B35.4 keep hands and feet dry and clean, can use bleach soak daily with 1 tbsp bleach to 1 gallon of water Impacted cerumen 8167162 6 H61.22 wash ears daily Depression screening 171 476241 Z13.89 score = 0 Body mass index 25-29 - overweight 526883692 Z68.29 [id number] [facility] (Peds) [address] [place] [address] 05/22/2016 15:31:09 05/24/2016 08:43:40 Depression screening 697894828 Z13.89 score = 0/27 Mild inter mittent asthma 478371448 J45.20 instruct how to use med asthma action plan , pefr= 450 Upper resp iratory infection 31924650 J06.9 supportive care, increase water, good hygiene, repeat temp 98.3, will get shts today, increase fluid, pt is dizzy maybe 2ndary to dehydratio n and hypoglycem ia, check lab today Exacerbati on of intermittent asthma 919510122 J45.21 albuterol q 4 hr until no cough for 2d, smoke free keep nose dry with cetrizine, saline spray prn, increase fluid contact if not better after 2d Overweight 563630373 E66 .3 discuss about healthy balanced diet and exercise, no sweet drink, increase water to 2-3 liters/d, skim milk 2 cup/d live an active life style, exercise 1 hr daily weight loss plan for 2lb/m d/w mom pt lost wt too fast [id number] [facility] (Peds) [address] [place] [address] 05/23/2016 16:20:56 05/25/2016 11:42:54 Asthmatic bronchitis 994141571 J45.909 after duo neb pt was better. less hacking, albuterol q 4 hr until no cough for 2d, smoke free keep nose dry with cetrizine, saline spray prn, increase fluid contact if not better after 2d [id number] [facility] (Peds) [address] [place] [address] 05/30/2016 16:09:41 06/01/2016 10:48:40 Mild intermittent asthma 932614112 J45.20 instruct how to use med asthma action plan , pefr= 450 Allergic rhinitis 872093 04 J30.89 environmen t control, keep nose dry ,saline spray prn, smoke free cetirizine or claritine prn, OTC, rtc prn Active or passive immunization 927757070 Z23 Overweight 153018228 E66 .3 discuss about healthy balanced diet and exercise, no sweet drink, increase water to 2-3 liters/d, skim milk 2 cup/d live an active life style, exercise 1 hr daily weight loss plan for 2lb/m d/w mom pt lost wt too fast [id number] K[facility]hik [facility] (Peds) [address] [place] [address] 11/14/2016 16:09:47 11/16/2016 11:19:10 Exacerbation of intermittent asthma 846783021 J45.21 [id number] MD Otto [facility] (Peds) [address] [place] [address] 12/18/2016 14:43:59 12/21/2016 18:00:42 Low back pain 660017297 M54.5 Suspect overuse injury or strain of muscles from lifting weights. Recommend rest, ice, massage, and ibuprofen. F/u in 2 weeks if no improvemen t. Size of br easts unequal 208305880 N65.1 Reassured patient that size discrepanc y is within normal limits. Notify if notice any mass, discharge or rapid increase in growth. [id number] [facility] (Peds) [address] [place] [address] 01/09/2017 16:32:12 01/11/2017 09:32:08 Viral upper respiratory tract infection 320280235 J06.9 Mild inter mittent asthma 730199756 J45.20 [id number] [facility] (Peds) [address] [place] [address] 02/07/2017 15:48:34 02/20/2017 09:39:24 Well child 157243386 Z00.042 [id number] [facility] [address] [place] [address] 08/06/2017 11:12:02 08/07/2017 14:30:06 Acute tonsillitis 28262869 J03.90 Rapid strep negative. Will send for throat cx. Given that pt's brother recently diagnosed with strep, pt. being symptomati c, and [place]. [place], will go ahead and start Amox. If culture results available prior to departure, will stop abx. if culture is negative. Mild inter mittent asthma 296054483 J45.20 Will give refill on inhaler. Will also start pt. on singulair. Notify if using inhaler more than twice a week or if pt. has nocturnal cough > 2 X/wk. Allergic rhinitis 102710 [address] on zyrtec, will refill flonase. [id number] Kaushik Silva [facility] (Peds) [address] [facility] [place] [address] 03/28/2018 14:57:20 03/31/2018 12:39:07 Exacerbation of intermittent asthma 147189340 J45.21 [id number] Maryanne Amos MD [facility] (Peds) [address] [place] [address] 05/01/2018 13:40:30 05/02/2018 14:08:58 Prolonged periods 400444213 N92.5 Pt. having period for 1 month, no previous h/o irregular periods. Will check screening labs. Discussed starting OCPs to help regulate period, pt does not want to start at this time and wants to wait until lab results known. Vitamin D deficiency 347 39742 E55.9 Last level checked 26.7 12/30/2015, will recheck level today. Constipation 99223921 K5 9.00 Increase fruits, vegetables and water intake. Will place on trial of miralax. [id number] Larry Brito 14 IM [address] [facility] [address] [place] [address] 11/12/2018 09:51:49 11/13/2018 10:16:12 History of asthma 284125808 Z87.09 Active or passive immunization 647088781 Z23 [id number] Celeste Berrios APN, FNP-C [facility] (Adult Med) [address] [place] [address] 06/10/2019 13:53:19 06/11/2019 11:30:47 Adult health examination 105300837 Z00.01 Encouraged routine TABLEAU ADMINISTRATOR, vision, dental exams, well balanced diet. Mild inter mittent asthma 818325687 J45.20 dwp prn albuterol usereviewe d AAP Vitamin D deficiency 347 80148 E55.9 check lab Acne 60377747 L70.9 numerous closed and open comedones on face and chestdwp hygiene, use of make up and skin care regimen [id number] Celeste Berrios APN, FNP-C [facility] ([facility]ult [facility]) [address] [place] [address] 12/17/2019 08:22:43 12/18/2019 12:07:32 Neck pain 19531881 M54.2 no trauma hx or injury, sore since sleeping wrong on in a few weeks ago; dwp heating pad, prn muscle relaxer and ibu, also may cont OTC tylenol prn; will obtain xray if continued pain [id number] Celeste Berrios APN, FNP-C [facility] ([facility]ult [facility]) [address] [place] [address] 04/01/2020 08:24:58 04/04/2020 11:19:22 Acute sinusitis 38915446 J01.90 sinus pressure with purulent drainage, start amox 500 mg TID Dysfunctio n of eustachian tube 20804605 H68.013 c/o fluid in ears, dwp flonase or other inhaled nasal steroid to reduce inflammati on [id number] Celeste Berrios APN, FNP-C [facility] ([facility]ult [facility]) [address] [facility] [place] [address] 05/27/2020 16:06:48 05/30/2020 21:42:35 Chronic constipation 934025518 K59.09 dwp diet changes, prn stool softener, MoM or miralax, ok to cont tea Hemorrhoids 56538397 K64 .9 recent flare and bleeding, dwp topicals, manage constipati on better, increase fluids Vitamin D deficiency 347 06315 E55.9 check lab Painless r ectal bleeding 164973753 K62.5 no labs done at ER, dwp labs needed Endocrine/ metabolic screening 974288098 Z13.228 Cholesterol screening 27 4184354 Z13.220 Overweight 441088691 E66 .3 [id number] Celeste Berrios APN, [facility] (Adult Med) [address] [place] [address] 12/15/2020 08:24:33 12/19/2020 10:24:17 Otalgia 73999423 H92.03 recurrent infections and pain, has been going to ER for treatment, rx for topical and will refer to ent Vitamin D deficiency 347 04785 E55.9 low , start high dose weekly replacemen t [id number] Celeste Berrios APN, FNP-C [facility] ([facility]ult [facility]) [address] [place] [address] 05/25/2021 16:12:53 05/29/2021 07:26:44 Acute bilateral otitis media 088121045 H66.93 Andrea TM erythema and edema/bulg ing, will send amox Vitamin D deficiency 347 43408 E55.9 low , start high dose weekly replacemen t Unintentio nal weight gain 9741026967 43076 R63.5 dwp will check labs, keep log of diet, work on cutting out junk food and sugars [id number] Celeste Berrios APN, FNP-C [facility] ([facility]ult [facility]) [address] [place] [address] 06/15/2021 15:52:33 06/16/2021 06:29:02 Dysfunction of eustachian tube 85608887 H68.013 c/o fluid in ears, dwp flonase or other inhaled nasal steroid to reduce inflammati on Posterior rhinorrhea 758 67211 R09.82 start daily antihistam ine, will send zyrtec Vitamin D deficiency 347 68465 E55.9 cont high dose weekly replacemen t Obesity 112469245 E66.9 advised low fat, low cholestero l diet, regular exercise and weight reduction. [id number] Celeste Berrios APN, FNP-C [facility] ([facility]ult [facility]) [address] [place] [address] 11/22/2021 11:58:25 11/22/2021 12:34:29 Otitis externa of bilateral ears 8781041733 872117 H60.93 andrea ear canal erythema, edema, will send topical abx Obesity 359733681 E66.9 advised low fat, low cholestero l diet, regular exercise and weight reduction. Acute bila teral otitis media 876600461 H66.93 Andrea TM erythema and edema/bulg ing, will send amox [id number] MD Farheen [facility] ([facility]ult [facility]) [address] [place] [address] 01/02/2022 11:01:22 01/03/2022 08:12:19 Bilateral external auditory canal chronic otitis externa 2148507931 571063 H60.63 stop drops keep ears dry [id number] Celeste Berrios APN, FNP-C [facility] ([facility]ult [facility]) [address] [facility] [place] [address] 12/20/2022 14:40:58 12/23/2022 11:16:36 Low back pain 881352911 M54.50 ER report reviewed; xray wnl Obesity 809821255 E66.9 advised low fat, low cholestero l diet, regular exercise and weight reduction. Sciatica 65038475 M54.30 dwp stretching , will send to PT [id number] Celeste Berrios APN, FNP-C [facility] ([facility]ult [facility]) [address] [facility] [place] [address] 06/04/2023 10:43:00 06/07/2023 10:50:57 Mild intermittent asthma 152567820 J45.20 dwp prn albuterol usereviewe d AAP Dysfunctio n of eustachian tube 94177160 H68.013 c/o fluid in ears, dwp flonase or other inhaled nasal steroid to reduce inflammati on Obesity 091654172 E66.9 advised low fat, low cholestero l diet, regular exercise and weight reduction. Vitamin D deficiency 347 40352 E55.9 cont high dose weekly replacemen t Adult heal th examination 506700928 Z00.01 Encouraged routine TABLEAU ADMINISTRATOR, vision, dental exams, well balanced diet. Irregular periods 779764 07 N92.6 advised to follow up with gyne but will check a1c Sciatica 61506132 M54.30 dwp stretching , will send to PT Impacted c erumen of bilateral ears 9887302747 426529 H61.23 excessive ear wax, declined lavage in office, dwp debrox use [id number] MD Otto [facility]OS[facility] (BASE ENGINEER) [address] [place] [address] 06/27/2023 13:56:12 07/12/2023 17:07:48 Routine gynecologic examination done 5281909423 9101 Z01.419 - Reviewed risks for infection and cancer; ordered screening tests as appropriat e- Recommende d annual flu vaccine and updated 2022 COVID vaccine Screening for malignant neoplasm of cervix 519452082 Z12.4 - Due for Pap; collected today Pruritus of vagina 43714 003 L29.3 - f/u NuSwab; will treat as indicated by results [id number] Celeste Berrios APN, [facility] (Adult Med) [address] [place] [address] 11/28/2023 14:59:53 12/11/2023 08:58:50 Sciatica 60942118 M54.30 dwp stretching , will send to PT Unintentio nal weight gain 5935525788 94338 R63.5 dwp will check labs, keep log of diet, work on cutting out junk food and sugars Abdominal bloating 75209 9008 R14.0 c/o gas pain for several days, ok now;dwp diet changes Right uppe r quadrant pain 744959251 R10.11 starts in back and radiates to front, feels like cramping [id number] Celeste Berrios APN, TRAVIS-[facility] (Adult Med) [address] [place] [address] 05/05/2024 15:39:38 05/06/2024 16:39:21 Adult health examination 624233982 Z00.01 Encouraged routine TABLEAU ADMINISTRATOR, vision, dental exams, well balanced diet. Obesity 978163296 E66.9 advised low fat, low cholestero l diet, regular exercise and weight reduction. Vitamin D deficiency 347 08307 E55.9 cont high dose weekly replacemen t Mild inter mittent asthma 110343124 J45.20 dwp prn albuterol usereviewe d AAP Tingling of skin 2563513 07 R20.2 c/o tingling at HS, will get lab Administra tion of diphtheria, pertussis, and tetanus vaccine 214023496 Z23 Health Concerns Section Related Observation LastModified by Organization Detai ls LastModified Time None Recorded Concern Status LastModified by Organization Details LastModified Time None Recorded Advance Directives Directive N: Payers Encounter Date Sequence Insurance Name Policy Number Policy Westfall Covered Member ID Westfall Member ID Guarantor Name 12/20/2022 1 [facility] (MEDICAID HM) [id number] Sema Tadeo [id number] [facility] Tadeo 06/04/2023 1 [place] [facility] PUBLIC [facility] Sema Tadeo [id number] Sema Tadeo 06/27/2023 1 [facility] (MEDICAID HMO) [id number] Sema Tadeo [id number] Sema Tadeo 11/28/2023 1 [facility] (MEDICAID HMO) [id number] Sema Tadeo [id number] Sema Tadeo 05/05/2024 1 [facility] (MEDICAID HMO) [id number] Sema Tadeo [id number] [facility] Tadeo Notes Date Note Type Note Provider Name and Address Organization Details Recorded Time 12/20/2022 text/html lower back pain for years. Sometimes pain shoots down butt and legs. taking ibuprofen and tylenol. states adding pressure helps the pain subside for that momentwent to ER and had xray which was normal Celeste Berrios, FORM TAMPER OPERATOR, CARNALLITE PLANT OPERATOR-C Attn: Accounting,[address] , [place], [address], [facility] 12/20/2022 15:27:35 06/04/2023 text/html pt c/o lower willian k pain for years. Used to sciatic pain. Now having constant back pain. otc meds do not help. was referred to PT but was issue with insurance so did not go. Denies ear pain but sounded muffled. On and off constantly pt c/o spotting for 2 days- states she normally does not spot in between period cycle- pt is not sexually active Celeste Berrios APN, FNP-C Attn: Accounting, [address] [facility], [place], [address], [facility] - [facility] 06/04/2023 11:15:05 06/27/2023 text/html Annual well woia n- PCP: TRAVIS Dunaway- At [facility]; planning to study commodities trader Concerns today- Vaginal itching. No change in vaginal discharge (odor or color). Uses unscented body washes, detergents, etc.- Has heavy periods. Painful during the first day of period. No known FHx of fibroids, PCOS, or endometriosis.- Had intermenstrual spotting once but did not happen again. Infection risk- Never tested for STIs; never sexually active- Vaccines due? Tdap, COVID, flu Plans for - Abstinence until marriage Cancer screenings- Breast cancer: No breast changes.- Cervical cancer: No prior Pap.- Colon cancer: FHx in maternal grandfather, dx in 80s.- Lung cancer: Never smoker. MYRIAM PEACE MD Attn: Accounting, [address] [facility], [place], [address], [facility] 06/27/2023 16:13:38 11/28/2023 text/html went to ER for b ack pain- referred to PT. Still has 5 more visits before ins with cover MRI. pt c/o stomach and back pain states it feels like her stomach is clyde. started 2 weeks ago. denies nausea and diarrhea. but only happens when her back is hurting her. was given muscle relaxer and diclofenac Pt concerned with rapid weight gain. Celeste Berrios APN, FNP-C Attn: Accounting, [address] [facility], [place], [address], [facility] - [facility] 12/10/2023 20:37:38 05/05/2024 text/html ear pain and drainage for 3 days.would like cholesterol and vit D checked.sometimes at she c/o tingling down arms and legs when she eats late at night Celeste Berrios, FORM TAMPER OPERATOR, CARNALLITE PLANT OPERATOR-C Attn: Accounting,[address] [place], [address], [facility] 05/05/2024 16:23:13 OBGyn Episode No OBEpisode recorded.
== END 2024-06-01 16:05 | disposition home or self-care (01) ==
PROVIDERS: Emergency Provider Registered Nurse; PCP Nurse Practitioner Family
DX: U07.1 COVID-19 (principal); J45.909 Unspecified asthma, uncomplicated
CPT/HCPCS: 87426; 87804; 99213; G0463

== ENCOUNTER 2025-01-29 15:40 | Emergency (ER) | payer OTHER, SELFPAY ==
--- OUTSIDE RECORDS SUMMARY | 2025-01-29 15:43 | XMS_ITS | Clinical Summary ---
Author Organization [facility] Address [address] [place] [address] Care Team Providers Care Inside Sales Assistant Name Role Phone Celeste Claire NP Primary Care Provider [phone] Allergies No known active allergies Medications ergocalciferol [...] pain 10/24 Myalgia 12/31/2018 Elevated TSH 12/31/2018 Medical History Medical History Date Comments Asthma [...] on file Legal Sex Female 11:22 AM [employer] Gender Identity Not on file Sexual Orientation Not on file Last Filed Vital Signs Vital Sign Reading Time Taken Comments Blood Pressure 120/85 03/31/2024 9:59 PM [employer] Pulse 115 03/31/2024 9:59 PM [employer] Temperature 37.7 C (99.9 F) 03/31/2024 9:59 PM [employer] Respiratory Rate 18 03/31/2024 9:59 PM [employer]IC Oxygen Saturation 98% 03/31/2024 9:59 PM [employer] Inhaled Oxygen Concentration - - Weight 78.5 kg (173 lb 1 oz) 03/31/2024 6:55 PM [employer] Height 160 cm (5' 2.99) 03/31/2024 6:55 PM [employer] Body Mass Index 30.66 03/31/2024 6:55 PM [employer]IN [employer]IC Plan of Treatment Health Maintenance Due Date Last Done Comments Cervical Cancer Screening 2000 Depression Screening 2000 Hepatitis C Screening 2000 Regular Well Visit/Exam 18-64 2018 DTaP/Tdap/Td Vaccine (8 - Td or Tdap) 03/23/2024 03/23/2014, 09/03/2013, 11/06/2011, Additional history exists Influenza Vaccine (#1) 11/23/202402/07/201 7, 12/30/2015, 01/20/2014, Additional history exists Hepatitis B Screening Completed 01/18/2001 , 2000, 2000 Pneumococcal vaccine <65 Completed 002, 01/17/2001, 2000 Varicella Vaccines Completed 10/22/2008, 10/28/2001 HPV Vaccines Completed 05/25/2014, 02/24, 09/03/[address] [place] [address] [address] [facility] Care Teams Inside Sales Assistant Relationship Specialty Start Date End Date Celeste Claire NP [address] [place] [address] PCP - General 05/16/20
--- OUTSIDE RECORDS SUMMARY | 2025-01-29 15:43 | XMS_ITS | Data Portability ---
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 Plan of Treatment Reminders Order Date Submit Date Provider Last Modified By Organization Details Last Modified Time Details Appointments None recorded . Lab cobalami n and folate panel, serum 2024 025 [facility], [address] [place] [address] 2, [place], [address], 5 09:15:12 ferritin , serum or plasma 2024 025 [facility], [address] [place] [address] 2, [place], [address], 5 09:15:16 magnesiu m, serum or plasma 2024 025 [facility], [address] [place] [address] 2, [place], [address], 5 09:15:15 TSH, ultra-se nsitive, serum 2024 025 [facility], [address], [address], [place], [address], 5 09:15:11 CMP, serum or plasma 2024 025 [facility], [address], [place], [address], 5 09:15:09 lipid panel, serum 2024 025 [facility], [address], [place], [address], 5 09:15:08 CBC 2024 025 [facility], [address], [place], [address], 5 09:15:17 HbA1c (hemoglo bin A1c), blood 2024 025 [facility], [address] [place] [address], [facility] 2, [place], [address], 5 09:15:13 vitamin D, 25-hydro xy, total, serum 2024 025 [facility], [address] [place] [address], [facility] 2, [place], [address], 5 09:15:19 vaginal pathogen s panel, JUNIOR+prob e, vaginal fluid 2023 024 [facility], [address] [place] [address], [facility] 2, [place], [address], 4 07:37:29 cytology report, thin prep, smear or scraping , cervical or vaginal 2023 024 [facility], [address] [place] [address], [facility] 2, [place], [address], 4 16:37:02 TSH, ultra-se nsitive, serum 2023 024 [facility], [address], [place], [address], 4 06:17:39 CMP, serum or plasma 2023 024 [facility], [address], [place], [address], 4 20:08:59 lipid panel, serum 2023 024 [facility], [address], [place], [address], 4 20:08:59 CBC 2023 024 [facility], [address], [place], [address], 4 20:09:00 vitamin D, 25-hydro xy, total, serum 2023 024 [facility], [address] [facility], [address], [place], [address], 4 06:17:41 HbA1c (hemoglo bin A1c), blood 2023 024 [facility], [address] [facility], [address], [place], [address], 4 06:17:40 Referral nutritio nist/ mattian referral 2023 024 [email or web address] [facility] [employer], [address] [place], [address], 4 14:36:06 physical therapis t referral 2023 024 WOO [facility], [address], [place], [address], 4 13:37:06 Procedures None recorded . Surgeries None recorded . Imaging US, gallblad jaspal 2023 024 [facility], [address], [place], [address], 4 07:53:14 Medication Orders Debrox 6.5 % ear drops 2023 [email or web address] [id number], [address], [place], [place], [id number], 5 16:21:33 Flonase Allergy Relief 50 mcg/actu ation nasal spray,olivera spension 2023 [id number], [address], [place], [place], [id number], 15:12:31 albutero l sulfate HFA 90 mcg/actu ation aerosol inhaler 2023 [facility][id number], [address], [place], [place], [id number], 11:08:57 Patient TargetsNo targets recorded. Patient Instructions Encounter Date Encounter Id Patient Instructions Last Modified By Organization Details Last Modified Time 06/04/2023 [id number] sciatica: care instructions Not available 06/04/2023 11:10:29 [...] finishing PT Not available 06/04/2023 11:12:47 11/28/2023 [id number] sciatica: care instructions Not available 11/28/2023 15:53:10 [...] Many types of fish, such as salmon, singh trout, tuna, and guillen, provide healthy omega-3 [...] as needed DWP barriers to care: none [facility] Not available 11/28/2023 15:56:21 05/05/2024 [id number] tetanus and diphtheria booster: care instructions [facility] Not available 05/05/2024 16:20:18 A healthy lifestyle: care instructions Not available 05/05/2024 16:18:43 asthma: your action plan [facility] Not available 05/05/2024 16:18:43 Increase intake of fresh fruits, and vegetables. Avoid packaged foods and fast foods. Follow a low salt diet, drink at least 8-10 8oz glasses of water a day, exercise most days of the week. Take all medications as prescribed. Keep appointments with PCP and all specialists. [facility] Not available 05/05/2024 16:20:29 follow up as needed, yearly to keep established with provider [facility] Not available 05/05/2024 16:20:33 Reason for Referral Physical Therapist Referral for Sciatica Referring Physician: [facility], Encounter Date: 06/04/2023 Print Color Matcher/dietitian Refer ral for Unintentional weight gain Referring Physician: [facility], Encounter Date: 11/28/2023 Results Created Date Observation Date Name Description Value Unit Range Abnormal Flag Note LastModifiedBy Organization Detail LastModifiedTime 06/04/19 24 06/04/2023 LIPID PANEL cholesterol, total 150 mg/dL 100-19 9 Not Available [facility] Department [address] [place], [address], 06/04/2023 20:08:59 06/04/19 24 06/04/2023 LIPID PANEL triglyceride s 184 mg/dL 0-149 above high normal Not Available [facility] Department [address] [place], [address], 06/04/2023 20:08:59 06/04/19 24 06/04/2023 LIPID PANEL HDL cholesterol 40 mg/dL 40-999 Not Available [facility] Department [address] [place], [address], 06/04/2023 20:08:59 06/04/19 24 06/04/2023 LIPID PANEL VLDL cholesterol gale 37 mg/dL 5-40 Not Available [facility] Department [address] [place] [address], [address], 06/04/2023 20:08:59 06/04/19 24 06/04/2023 LIPID PANEL LDL chol calc (nih) 101 mg/dL 0-99 above high normal Not Available [facility] Department [address] [place] [address], [address], 06/04/2023 20:08:59 06/04/19 24 06/04/2023 COMP. METAB OLIC PANEL (14) glucose 88 mg/dL 70-99 Not Available [facility] Department [address] [place] [address], [address], 06/04/2023 20:08:59 06/04/19 24 06/04/2023 COMP. METAB OLIC PANEL (14) BUN 11 mg/dL 6-20 Not Available [facility] [address] [place] [address], [address], 06/04/2023 20:08:59 06/04/19 24 06/04/2023 COMP. METAB OLIC PANEL (14) creatinine 0.66 mg/dL 0.76-1 .27 below low normal Not Available [facility] [address] [place] [address], [address], 06/04/2023 20:08:59 06/04/19 24 06/04/2023 COMP. METAB OLIC PANEL (14) eGFR 126 >=60 Units for eGFR value s are mL/mi n/1.7 3 The eGFR Calcu latio n has not been valid ated for patie nts under the age of 18. If test resul ts are displ ayed for a patie nt under the age of 18, disre brenton that value . Not Available [facility] [address] [place], [address], 06/04/2023 20:08:59 06/04/19 24 06/04/2023 COMP. METAB OLIC PANEL (14) BUN/creatini ne ratio 16 9-23 Not Available [facility] Department [address] [place], [address], 06/04/2023 20:08:59 06/04/19 24 06/04/2023 COMP. METAB OLIC PANEL (14) sodium 139 mmol/ L 134-14 4 Not Available [facility] [address] [place] [address], [address], 06/04/2023 20:08:59 06/04/19 24 06/04/2023 COMP. METAB OLIC PANEL (14) potassium 4.1 mmol/ L 3.5-5. 2 Not Available [facility] [address] [place] [address], [address], 06/04/2023 20:08:59 06/04/19 24 06/04/2023 COMP. METAB OLIC PANEL (14) chloride 101 mmol/ L 96-106 Not Available [facility] [address] [place] [address], [address], 06/04/2023 20:08:59 06/04/19 24 06/04/2023 COMP. METAB OLIC PANEL (14) carbon dioxide, total 25 mmol/ L 20-29 Not Available [facility] [address] [place] [address], [address], 06/04/2023 20:08:59 06/04/19 24 06/04/2023 COMP. METAB OLIC PANEL (14) calcium 9.6 mg/dL 8.7-10 .2 Not Available [facility] [address] [place] [address], [address], 06/04/2023 20:08:59 06/04/19 24 06/04/2023 COMP. METAB OLIC PANEL (14) protein, total 7.1 g/dL 6.0-8. 5 Not Available [facility] [address] [place] [address], [address], 06/04/2023 20:08:59 06/04/19 24 06/04/2023 COMP. METAB OLIC PANEL (14) albumin 4.7 g/dL 4.0-5. 0 Not Available [facility] [address] [place] [address], [address], 06/04/2023 20:08:59 06/04/19 24 06/04/2023 COMP. METAB OLIC PANEL (14) globulin, total 2.4 g/dL 1.5-4. 5 Not Available [facility] [address] [place] [address], [address], 06/04/2023 20:08:59 06/04/19 24 06/04/2023 COMP. METAB OLIC PANEL (14) A/G ratio 2.0 1.2-2. 2 Not Available [facility] Department [address] [place], [address], 06/04/2023 20:08:59 06/04/19 24 06/04/2023 COMP. METAB OLIC PANEL (14) bilirubin, total 0.6 mg/dL 0.0-1. 2 Not Available [facility] [address] [place] [address], [address], 06/04/2023 20:08:59 06/04/19 24 06/04/2023 COMP. METAB OLIC PANEL (14) alkaline phosphatase 76 IU/L 44-121 Not Available [facility] Department [address] [place] [address], [address], 06/04/2023 20:08:59 06/04/19 24 06/04/2023 COMP. METAB OLIC PANEL (14) AST (SGOT) 14 IU/L 0-40 Not Available [facility] Department [address] [place] [address], [address], 06/04/2023 20:08:59 06/04/19 24 06/04/2023 COMP. METAB OLIC PANEL (14) ALT (SGPT) 13 IU/L 0-32 Not Available [facility] Department [address] [place], [address], 06/04/2023 20:08:59 06/04/19 24 06/04/2023 CBC, NO DIFFE RENTI AL/PL ATELE T WBC 9.7 x10e3 /uL 3.4-10 .8 Not Available [facility] [address] [place], [address], 06/04/2023 20:09:00 06/04/19 24 06/04/2023 CBC, NO DIFFE RENTI AL/PL ATELE T RBC 4.98 x10e6 /uL 3.77-5 .28 Not Available [facility] [address] [place], [address], 06/04/2023 20:09:00 06/04/19 24 06/04/2023 CBC, NO DIFFE RENTI AL/PL ATELE T hemoglobin 14.9 g/dL 11.1-1 5.9 Not Available [facility] [address] [place], [address], 06/04/2023 20:09:00 06/04/19 24 06/04/2023 CBC, NO DIFFE RENTI AL/PL ATELE T hematocrit 46.1 % 34.0-4 6.6 Not Available [facility] [address] [place], [address], 06/04/2023 20:09:00 06/04/19 24 06/04/2023 CBC, NO DIFFE RENTI AL/PL ATELE T MCV 93 fL 79-97 Not Available [facility] [address] [place], [address], 06/04/2023 20:09:00 03/12/20 24 06/04/2023 CBC, NO DIFFE RENTI AL/PL ATELE T MCH 29.9 pg 26.6-3 3.0 Not Available [facility] [address] [place], [address], 06/04/2023 20:09:00 06/04/19 24 06/04/2023 CBC, NO DIFFE RENTI AL/PL ATELE T MCHC 32.3 g/dL 31.5-3 5.7 Not Available [facility] [address] [place], [address], 06/04/2023 20:09:00 06/04/19 24 06/04/2023 CBC, NO DIFFE RENTI AL/PL ATELE T RDW 13.0 % 11.5-1 4.5 Not Available [facility] [address] [place], [address], 06/04/2023 20:09:00 06/04/19 24 06/04/2023 CBC, NO DIFFE RENTI AL/PL ATELE T NRBC 0 % 0-0 Not Available [facility] Department [address] [place], [address], 06/04/2023 20:09:00 06/04/19 24 06/05/2023 TSH RFX ON ABNOR MAL TO FREE T4 TSH 2.140 uIU/m L 0.450- 4.500 Not Available [facility]) [address] [facility], [place], [address], 06/05/2023 06:17:39 06/04/1906/05/2023 HEMOG LOBIN A1C hemoglobin A1C 5.1 % 4.8-5. 6 Predi abete s: 5.7 - 6.4 Diabe omid: >6.4 Glyce sergio contr ol for adult s with diabe omid: <7.0 Not Available [facility]) [address] [facility], [place], [address], 06/05/2023 06:17:40 06/04/19 24 06/05/2023 VITAM IN [...] Medic ine). 2009. Dieta ry refer ence intak es for calci um and D. Yocasta tolentino [place]: [facility] Press . 2. Albertina latif MF, Abdiaziz khanna [place], Bridgette off-F errar i WILDE, et al. Evalu ation , treat ment, and preve ntion of vitam in D defic iency : an Endoc rine Socie ty clini gale pract ice guide line. JCEM. 2010; 96(7) :1911 -30. Not Available [facility] ([facility]) [address] [place], [address], 06/05/2023 06:17:41 06/27/19 24 06/28/2023 NUSWA B VAGIN ITIS PLUS (VG+) atopobium vaginae Low - 0 score Not Available [facility]) [address] [place], [address], 06/29/2023 07:37:29 06/27/19 24 06/28/2023 NUSWA B VAGIN ITIS PLUS (VG+) bvab 2 Low - 0 score Not Available [facility]) [address] [place], [address], 06/29/2023 07:37:29 06/27/19 24 06/28/2023 NUSWA B [...] e amanda cteri stics deter mined by [employer]. It has not been clear ed or appro vickey by the Food and Drug Admin istra tion. Not Available [facility] ([facility]) [address] [place], [address], 06/29/2023 07:37:29 06/27/19 24 06/28/2023 NUSWA B VAGIN ITIS PLUS (VG+) giana albicans, JUNIOR Negati ve negati ve Not Available [facility]) [address] [place], [address], 06/29/2023 07:37:29 06/27/19 24 06/28/2023 NUSWA B VAGIN ITIS PLUS (VG+) giana glabrata, JUNIOR Negati ve negati ve Not Available [facility]) [address] [place], [address], 06/29/2023 07:37:29 06/27/19 24 06/29/2023 NUSWA B VAGIN ITIS PLUS (VG+) trich vag by JUNIOR Negati ve negati ve Not Available [facility]) [address] [place], [address], 06/29/2023 07:37:29 06/27/19 24 06/29/2023 NUSWA B VAGIN ITIS PLUS (VG+) chlamydia trachomatis, JUNIOR Negati ve negati ve Not Available [facility]) [address] [facility], [place], [address], 06/29/2023 07:37:29 06/27/19 24 06/29/2023 NUSWA B VAGIN ITIS PLUS (VG+) neisseria gonorrhoeae, JUNIOR Negati ve negati ve Not Available [facility]) [address] [facility], [place], [address], 06/29/2023 07:37:29 06/27/19 24 07/02/2023 IGP, RFX APTIM A HPV ASCU diagnosis: Jaspreet MONTELONGO IVE FOR INTRA EPITH ELIAL DAYNA N OR PINKY NGUYEN . THIS SPECI MEN WAS RESCR EENED PART OF OUR QUALI TY CONTR OL PROGR AM. Not Available [facility]) [address] [facility], [place], [address], 07/02/2023 16:37:01 06/27/19 24 07/02/2023 IGP, RFX APTIM A HPV ASCU specimen adequacy: Jaspreet hdz Satis facto ry for evalu ation . Endoc ervic al and/o r squam ous metap lasti c cells (endo cervi gale compo nent) are prese nt. Not Available [facility]) [address] [facility], [place], [address], 07/02/2023 16:37:01 06/27/19 24 07/02/2023 IGP, RFX APTIM A HPV ASCU clinician provided ICD10: Jaspreet hdz Z12.4 L29.3 Not Available [facility]) [address] [facility], [place], [address], 07/02/2023 16:37:01 06/27/19 24 07/02/2023 IGP, RFX APTIM A HPV ASCU performed by: Commen t Shaylee Helto n, Cytot echno logis t (ASCP ) Not Available [facility]) [address] [facility], [place], [address], 07/02/2023 16:37:01 06/27/19 24 07/02/2023 IGP, RFX APTIM A HPV ASCU QC reviewed by: Jaspreet Quinteros hy Willi ams, Cytot echno logis t (ASCP ) Not Available [facility]) [address] [place], [address], 07/02/2023 16:37:01 06/27/19 24 07/02/2023 IGP, RFX APTIM A HPV ASCU . . Not Available [facility]) [address] [facility], [place], [address], 07/02/2023 16:37:01 06/27/19 24 07/02/2023 IGP, RFX [...] ts do occur . Not Available [facility]) [address] [facility], [place], [address], 07/02/2023 16:37:01 06/27/19 24 07/02/2023 IGP, RFX APTIM A HPV ASCU test methodology: Jaspreet hdz This liqui d based ThinP rep(R ) pap test was scree sarah with the use of an image guide rosibel granger. Not Available [facility]) [address] [facility], [place], [address], 07/02/2023 16:37:01 06/27/19 24 07/02/2023 IGP, RFX APTIM A HPV ASCU . Commen t The HPV DNA refle x crite disha were not met with this speci men resul t there fore, no HPV testi ng was perfo rmed. Not Available [facility] [address] [place], [address], 07/02/2023 16:37:01 05/05/19 25 05/06/2024 LIPID PANEL cholesterol, total 180 mg/dL 100-19 9 Not Available [facility]) [address] [place], [address], 05/06/2024 09:15:07 05/05/19 25 05/06/2024 LIPID PANEL triglyceride s 125 mg/dL 0-149 Not Available [facility] [address] [place], [address], 05/06/2024 09:15:07 05/05/19 25 05/06/2024 LIPID PANEL HDL cholesterol 50 mg/dL >39 Not Available [facility] [address] [place], [address], 05/06/2024 09:15:07 05/05/19 25 05/06/2024 LIPID PANEL VLDL cholesterol gale 22 mg/dL 5-40 Not Available [facility] [address] [place], [address], 05/06/2024 09:15:07 05/05/19 25 05/06/2024 LIPID PANEL LDL chol calc ([facility]) 108 mg/dL 0-99 above high normal Not Available [facility]) [address] [place], [address], 05/06/2024 09:15:07 05/05/19 25 05/06/2024 COMP. METAB OLIC PANEL (14) glucose 72 mg/dL 70-99 Not Available [facility] [address] [facility], [address], 05/06/2024 09:15:09 05/05/19 25 05/06/2024 COMP. METAB OLIC PANEL (14) BUN 10 mg/dL 6-20 Not Available [facility]) [address] [place], [address], 05/06/2024 09:15:09 05/05/19 25 05/06/2024 COMP. METAB OLIC PANEL (14) creatinine 0.77 mg/dL 0.57-1 .00 Not Available [facility]) [address] [place], [address], 05/06/2024 09:15:09 05/05/19 25 05/06/2024 COMP. METAB OLIC PANEL (14) eGFR 111 mL/mi n/1.7 3 >59 Not Available [facility]) [address] [place], [address], 05/06/2024 09:15:09 05/05/19 25 05/06/2024 COMP. METAB OLIC PANEL (14) BUN/creatini ne ratio 13 9-23 Not Available [facility] [address] [place], [address], 05/06/2024 09:15:09 05/05/19 25 05/06/2024 COMP. METAB OLIC PANEL (14) sodium 143 mmol/ L 134-14 4 Not Available [facility]) [address] [place], [address], 05/06/2024 09:15:09 05/05/19 25 05/06/2024 COMP. METAB OLIC PANEL (14) potassium 4.0 mmol/ L 3.5-5. 2 Not Available [facility]) [address] [place], [address], 05/06/2024 09:15:09 05/05/19 25 05/06/2024 COMP. METAB OLIC PANEL (14) chloride 102 mmol/ L 96-106 Not Available [facility]) [address] [place], [address], 05/06/2024 09:15:09 05/05/19 25 05/06/2024 COMP. METAB OLIC PANEL (14) carbon dioxide, total 25 mmol/ L 20-29 Not Available [facility]) [address] [facility], [place], [address], 05/06/2024 09:15:09 05/05/19 25 05/06/2024 COMP. METAB OLIC PANEL (14) calcium 9.7 mg/dL 8.7-10 .2 Not Available [facility]) [address] [place], [address], 05/06/2024 09:15:09 05/05/19 25 05/06/2024 COMP. METAB OLIC PANEL (14) protein, total 7.1 g/dL 6.0-8. 5 Not Available [facility]) [address] [place], [address], 05/06/2024 09:15:09 05/05/19 25 05/06/2024 COMP. METAB OLIC PANEL (14) albumin 4.5 g/dL 4.0-5. 0 Not Available [facility]) [address] [place], [address], 05/06/2024 09:15:09 05/05/19 25 05/06/2024 COMP. METAB OLIC PANEL (14) globulin, total 2.6 g/dL 1.5-4. 5 Not Available [facility]) [address] [place], [address], 05/06/2024 09:15:09 05/05/19 25 05/06/2024 COMP. METAB OLIC PANEL (14) bilirubin, total 0.6 mg/dL 0.0-1. 2 Not Available [facility]) [address] [place], [address], 05/06/2024 09:15:09 05/05/19 25 05/06/2024 COMP. METAB OLIC PANEL (14) alkaline phosphatase 71 IU/L 44-121 Not Available [facility] [address] [place], [address], 05/06/2024 09:15:09 05/05/19 25 05/06/2024 COMP. METAB OLIC PANEL (14) AST (SGOT) 15 IU/L 0-40 Not Available [facility]) [address] [place], [address], 05/06/2024 09:15:09 05/05/19 25 05/06/2024 COMP. METAB OLIC PANEL (14) ALT (SGPT) 25 IU/L 0-32 Not Available [facility]) [address] [place], [address], 05/06/2024 09:15:09 05/05/19 25 05/06/2024 TSH RFX ON ABNOR MAL TO FREE T4 TSH 1.090 uIU/m L 0.450- 4.500 Not Available [facility]) [address] [place], [address], 05/06/2024 09:15:11 05/05/19 25 05/06/2024 VITAM IN B12 AND FOLAT E vitamin B12 583 pg/mL 232-12 45 Not Available [facility]) [address] [place], [address], 05/06/2024 09:15:12 05/05/19 25 05/06/2024 VITAM IN B12 AND FOLAT E folate (folic acid), serum 7.6 NG/mL >3.0 A serum folat e michael ntrat ion of less than 3.1 ng/mL is consi dered to repre sent clini gale defic iency . Not Available [facility]) [address] [place], [address], 05/06/2024 09:15:12 05/05/19 25 05/06/2024 HEMOG LOBIN A1C hemoglobin A1C 5.4 % 4.8-5. 6 Predi abete s: 5.7 - 6.4 Diabe omid: >6.4 Glyce sergio contr ol for adult s with diabe omid: <7.0 Not Available [facility]) [address] [place], [address], 05/06/2024 09:15:13 05/05/19 25 05/06/2024 MAGNE SIUM magnesium 2.2 mg/dL 1.6-2. 3 Not Available [facility]) [address] [place], [address], 05/06/2024 09:15:14 05/05/1905/06/2024 PRECIOUS TIN ferritin 116 NG/mL 15-150 Not Available [facility]) [address] [place], [address], 05/06/2024 09:15:16 05/05/1905/06/2024 CBC, PLATE LET, NO DIFFE RENTI AL WBC 6.8 x10e3 /uL 3.4-10 .8 Not Available [facility]) [address] [place], [address], 05/06/2024 09:15:17 05/05/1905/06/2024 CBC, PLATE LET, NO DIFFE RENTI AL RBC 4.92 x10e6 /uL 3.77-5 .28 Not Available [facility]) [address] [place], [address], 05/06/2024 09:15:17 05/05/19 25 05/06/2024 CBC, PLATE LET, NO DIFFE RENTI AL hemoglobin 14.9 g/dL 11.1-1 5.9 Not Available [facility]) [address] [facility], [place], [address], 05/06/2024 09:15:17 05/05/1905/06/2024 CBC, PLATE LET, NO DIFFE RENTI AL hematocrit 45.9 % 34.0-4 6.6 Not Available [facility]) [address] [facility], [place], [address], 05/06/2024 09:15:17 05/05/1905/06/2024 CBC, PLATE LET, NO DIFFE RENTI AL MCV 93 fL 79-97 Not Available [facility]) [address] [facility], [place], [address], 05/06/2024 09:15:17 05/05/1905/06/2024 CBC, PLATE LET, NO DIFFE RENTI AL MCH 30.3 pg 26.6-3 3.0 Not Available [facility]) [address] [facility], [place], [address], 05/06/2024 09:15:17 05/05/1905/06/2024 CBC, PLATE LET, NO DIFFE RENTI AL MCHC 32.5 g/dL 31.5-3 5.7 Not Available [facility] [address] [facility], [place], [address], 05/06/2024 09:15:17 05/05/1905/06/2024 CBC, PLATE LET, NO DIFFE RENTI AL RDW 12.3 % 11.7-1 5.4 Not Available [facility] ([facility]) [address] [place], [address], 05/06/2024 09:15:17 05/05/19 25 05/06/2024 CBC, PLATE LET, NO DIFFE RENTI AL platelets 309 x10e3 /uL 150-45 0 Not Available [facility] ([facility]) [address] [facility], [place], [address], 05/06/2024 09:15:17 05/05/19 25 05/06/2024 VITAM IN D, 25-HY DROXY vitamin D, [...] Medic ine). 2009. Dieta ry refer ence intak es for calci um and D. Yocasta tolentino [place]: The [employer] . 2. Albertina latif MF, Abdiaziz khanna [place], Bridgette off-F errar i WILDE, et al. Evalu ation , treat ment, and preve ntion of vitam in D defic iency : an Endoc rine Socie ty clini gale pract ice guide line. JCEM. 2010; 96(7) :1911 -30. Not Available [facility] ([facility]) [address] [facility] [facility], [place], [address], 05/06/2024 09:15:18 12/11/19 24 12/10/2023 MRI, lumba r spine , w/o contr ast No observ ation record ed. [address] , [place], [address], 12/13/2023 14:18:10 01/07/20 24 01/03/2024 , leann huang No observ ation record ed. [address], [place], [address], 01/08/2024 17:30:04 Result Notes None recorded. Problems Name Problem SNOMED Code Status Onset Date Resolution Date Notes Provider Name and Address Organization Details Recorded Time Todd huang 72725753 Completed 01/09/2017 Kaushik [place], [place] - [facility] 7 14:40:52 Headache 72917964 Completed 01/09/2017 Kaushik Matosg [place] [facility] 7 14:40:40 Obesity 916123216 Completed 02/07/2017 Celeste Berrios APN, SPEECH ASSISTANT-C Attn: Mireya lopes,[address] [facility], [place], [address], [place] - [facility] 2 16:18:54 Low back pain 908775071 Completed 01/09/2017 [place]aush[place] black[place] [facility] 7 14:40:43 Vitamin D deficienc y 91019793 Active Uraiwan Hompluem [place], [place] - [facility] 6 12:07:09 Overweigh t 155144146 Completed 01/09/2017 Kaush[place] [facility] 7 14:40:46 Myopia 71064937 Completed 01/09/2017 [place]aush[place] [facility] 7 14:40:55 Upper respirato ry infection 83005551 Completed 01/09/2017 [place]aush[place] [facility] 7 14:40:49 Mild intermitt ent asthma 158745841 Active Uraiwan Hompluem [place] [facility] 6 12:07:09 Impacted cerumen 00815568 Completed 01/09/2017 [place]aush[place] [facility] 7 14:40:36 Hand foot and mouth disease 899509049 Completed 01/09/2017 [place]aush[place] [facility] 7 14:40:39 History of asthma 177934516 Active 2018 Larry Duckworth [place] [facility] 9 10:22:33 Unintenti onal weight gain 224496473001 104 Active 2021 Celeste Berrios APN SPEECH ASSISTANT-C Attn: Jhonycharmaine lopes,[address] [facility], [place], [address], [facility] 2 09:39:27 Obesity 574395329 Active 2021 Celeste Berrios APN SPEECH ASSISTANT-C Attn: Mireya marianne,[address] [facility], [place], [place], [address] [place] [address] 2, [facility] 2 16:18:53 Posterior rhinorrhe a 49939119 Active 2021 Celeste Berrios APN SPEECH ASSISTANT-C Attn: Mireya marianne,[address] [facility], [place], [place], [address] [place] [address] 2, [facility] 2 17:24:16 Dysfuncti on of eustachia n tube 66813898 Active 2021 Celeste Berrios APN SPEECH ASSISTANT-C Attn: Mireya marianne,[address] [place] [address], [place], [address], [facility] 2 14:16:13 Sciatica 81103806 Active 2022 Celeste Berrios APN SPEECH ASSISTANT-C Attn: Mireya marianne,[address] [place] [address], [place], [address], [facility] 3 15:00:27 Problem Notes None recorded. Procedures Surgical History Date Name Laterality Status Provider Name and Address Organization Details Recorded Time 7 Nebulizer tx completed Uraiwan Hompluem [facility] 05/23/2016 17:58:02 7 Nebulizer tx completed Uraiwan Hompluem [facility] 05/22/2016 17:49:08 6 Cerumen Removal completed Uraiwan Hompluem [facility] 03/22/2016 14:35:02 Imaging Results None recorded. Procedure Notes None recorded. Medical Equipment None [...] 2 TIMES PER DAY x 4 days 01/26 completed Not Available Not Available Not Available tramadol 50 mg tablet TAKE 1 TABLET [...] mcg/actuati on aerosol inhaler INHALE 2 PUFFS EVERY 4 HOURS NEEDED FOR WHEEZING 2024 active Not Available Not Available Not Avai lable ketoconazol e 2 % topical cream apply [...] EAR EVERY 8 HOURS FOR 7 DAYS 01/26 completed Not Available Not Available Not Available cyclobenzap rine 5 mg tablet TK [...] TAKE ONE CAPSULE BY MOUTH EVERY WEEK 01/26 completed Not Available Not Available Not Available Aerochamber Plus Flow-Vu 11/14 completed Not [...] Respiratory rate Body temperature Heart rate Systolic And Diastolic Provider Name and Address Organization Details Last Updated DateTime 5 160.02 cm 32.4 kg/m2 70188.4 g 98 % 98 % 16 /min 97.5 [degF] 84 /min 124/80 mm[Hg] BRIANDA Murri[place] - [facility] 5 15:53:32 Date Recorded Body height Body mass index (BMI) Body weight Oxygen saturation Oxygen saturation in Arterial blood by Pulse oximetry Heart rate Respiratory rate Body temperature Systolic And Diastolic Provider Name and Address Organization Details Last Updated DateTime 4 160.02 cm 30.6 kg/m2 35590.4 8 g 98 % 98 % 96 /min 16 /min 98 [degF] 126/74 mm[Hg] BRIANDA [place] - [facility] 4 10:54:00 Date Recorded Body height Body mass index (BMI) Body weight Heart rate Respiratory rate Body temperature Systolic And Diastolic Provider Name and Address Organization Details Last Updated DateTime 4 160.02 cm 30.3 kg/m2 67572.6 5 g 78 /min 16 /min 98.7 [degF] 116/75 mm[Hg] Comfort Bill MA [facility] 4 14:08:23 Date Recorded Body height Body mass index (BMI) Body weight Oxygen saturation Oxygen saturation in Arterial blood by Pulse oximetry Respiratory rate Body temperature Heart rate Systolic And Diastolic Provider Name and Address Organization Details Last Updated DateTime 4 160.02 cm 32.2 kg/m2 96676.8 1 g 98 % 98 % 16 /min 98.2 [degF] 84 /min 116/84 mm[Hg] Gillian Mendieta [facility] 4 15:14:53 Date Recorded Body height Body mass index (BMI) Body weight Respiratory rate Body temperature Oxygen saturation Oxygen saturation in Arterial blood by Pulse oximetry Heart rate Systolic And Diastolic Provider Name and Address Organization Details Last Updated DateTime 5 160.02 cm 34 kg/m2 75021.7 4 g 16 /min 98 [degF] 98 % 98 % 72 /min 124/84 mm[Hg] Gillian Mendieta Nubia [facility] 5 16:23:54 Social History Question Answer Notes LastModified by Organizat ion Details LastModified Time Tobacco Smoking Status Never Smoker Evy Ingram MA [facility] 03/23/2014 14:51:40 Do You Have An Advance Directive? No Information not available 06/10/2019 Animal Exposure? No [email or web address] Informa tion not available 12/30/2015 Do You Wear A Helmet When Biking? No [email or web address] Information not available 03/23/2014 Are You Blind Or Do You Have Difficulty Seeing? No [email or web address] Information not available 05/27/2020 What Is Your Level Of Caffeine Consumption? Occasional [email or web address] Information not available 05/27/2020 How Much Tobacco Do You Chew? None Information not available 06/10/2019 What Type Of Interventional Radiology Technologist Do You Use? None [email or web address] Information not available 03/23/2014 In The 14 Days Before Symptom Onset, Have You Had Close Contact With A Laboratory-confi rmed COVID-19 While That Case Was Ill? No Information not available 06/10/2019 In The 14 Days Before Symptom Onset, Have You Had Close Contact With A Person Who Is Under Investigation For COVID-19 While That Person Was Ill? No Information not available 06/10/2019 Have You Been To An Area Known To Be High Risk For COVID-19? No Information not available 06/10/2019 Are You Deaf Or Do You Have Serious Difficulty Hearing? No [email or web address] Information not available 05/27/2020 What Type Of Diet Are You Following? REGULAR Watching What She Eats Information not available 01/26/2025 Which Illicit Or Recreational Drugs Have You Used? Denied Information not available 06/10/2019 Education 12 [employer] Student [employer] Information not available 06/10/2019 Have There Been Any Changes To Your Family Or Social Situation? No [email or web address] Information not available 03/23/2014 What Is The Fluoride Status Of Your Home? Fluoridated [email or web address] Information not available 12/30/2015 Are There Any Guns Present In Your Home? No [email or web address] Information not available 03/23/2014 Hard Of Hearing Or Deaf In One Or Both Ears? No Information not available 06/10/2019 What Is Your Home Situation? Both Parents Parents, 2 Brothers [email or web address] Information not available 07/21/2014 Do You Use Insect Repellent Routinely? Yes [email or web address] Information not available 03/23/2014 Legally Blind In One Or Both Eyes? No Information not available 06/10/2019 Marital Status Single Informatio n not available 06/10/2019 What Was The Date Of Your Most Recent Tobacco Screening? 01/26/2025 Information not available 01/26/2025 What Is Your Parents' Marital Status? [email or web address] Information not available 03/23/2014 Performs Monthly Self-breast Exam? No Information not available 06/10/2019 Pool Exposure No [email or web address] Informatio n not available 03/23/2014 What Is Your Relationship Status? Single [email or web address] Information not available 05/27/2020 What Is The Name Of Your School? [email or web address] Information not available 12/15/2020 Do You Use Your Seat Belt Or Car Seat Routinely? Yes Information not available 05/27/2020 Seat Belts Used Routinely Yes Information not available 06/10/2019 Are You Sexually Active? No [email or web address] Information not available 05/27/2020 Do You Have Any Siblings? 2 Brothers [email or web address] Information not available 03/23/2014 Smoke Alarm In Home Yes Information not available 06/10/2019 Do You Have Smoke And Carbon Monoxide Detectors In Your Home? Yes [email or web address] Information not available 03/23/2014 Are You Passively Exposed To Smoke? Yes Mom And Dad Smoke Outside Information not available 03/23/2014 How Much Tobacco Do You Smoke? No Information not available 06/10/2019 What Types Of Sporting Activities Do You Participate In? None Information not available 03/23/2014 General Stress Level Medium Information not available 06/10/2019 Do You Use Sunscreen Routinely? Yes [email or web address] Information not available 03/23/2014 Has Tobacco Cessation Counseling Been Provided? No [email or web address] Information not available 05/25/2021 Year In School 12 Informati on not available 03/28/2018 Sex: Female Functional Status Question Answer Note LastModified by Organizat ion Details LastModified Time Do you use any illicit or recreational drugs? No [email or web address] Information not available 05/27/2020 Do you or have you ever used any other forms of tobacco or nicotine? No [email or web address] Information not available 06/15/2021 What is your level of alcohol consumption? None [email or web address] Information not available 11/12/2018 Do you or have you ever used smokeless tobacco? Never used [email or web address] tobacco Information not available 06/10/2019 Are you currently employed? Yes Information not available 06/04/2023 Are you able to care for yourself independently? Yes [email or web address] Information not available 05/27/2020 What is your occupation? [email or web address] Information not available 01/26/2025 Do you or have you ever used e-cigarettes or vape? Never used electronic cigarettes Information not available 06/10/2019 What is your exercise level? None Information not available 11/28/2023 Mental Status Question Answer Note LastModified by Organization D etails LastModified Time Do you feel stressed (tense, restless, nervous, or anxious, or unable to sleep at night)? [id number] Information not available 05/05/2024 Are you or have you been involved with bullying? No Information not available 03/23/2014 Family History Relationship Description Onset Age of this Age Resolved Age Notes LastModified by Organization Details LastModified Time Father Diabetes mellitus [email or web address] Not available 04/25 15:51:53 Medical History Condition Response Coronary Artery Disease N Atrial Fibrillation N High Blood Pressure N Blood Diseases N Ear or Hearing Problems N Thyroid Problems N Kidney or Bladder Problems N GI Problems N Depression N COPD N Blood Clots N Developmental or Behavioral Disorders N Skin Problems N Eating Disorder N Premature N Anemia N Constipation N Heart Attack (AL) N Anxiety Disorder N Diabetes N Muscle, Joint, or Bone Problems N Bedwetting N Vision or Eye Problems N Heart Problems/Murmur N Seizures/Epilepsy N Head Injury/Concussion N Acid Reflux (GERD) N Cancer N Stroke N Asthma N Allergies N ADHD N Bladder or Kidney Problems N High Cholesterol N Hepatitis N Liver Disease N Headaches N Chicken Pox N Heart Failure N Autism Spectrum Disorder (ASD) N Osteoporosis N Gynecological History Statement/Question Response Flow Light Date of LMP 01/19/2025 Frequency of Cycle (Q days) 28 Menses [...] virus, quadrivalent, PF 6 completed Not Available [facility] 04/11/2019 02:32:33 meningococcal MCV4, unspecified formulation 4 completed Not Available [facility] 11/25/2022 06:58:28 IPV 1 completed Celeste Berrios, BILL OF LADING CLERK, SPEECH ASSISTANT-C Attn: Accounting,[address] [facility], [place], [place], [address] [place] [address], [facility] 06/04/2023 11:00:15 pneumococcal conjugate PCV 7 1 completed Celeste Berrios, BILL OF LADING CLERK, SPEECH ASSISTANT-C Attn: Accounting,[address] [facility], [place], [place], [address] [place] [address], [facility] 06/04/2023 11:00:15 Tdap 4 completed Celeste Berrios, BILL OF LADING CLERK, SPEECH ASSISTANT-C Attn: Accounting,[address] [facility], [place], [place], [address] [place] [address], [facility] 06/04/2023 11:00:15 Novel [id number], all formulations 0 completed Celeste Berrios, BILL OF LADING CLERK, SPEECH ASSISTANT-C Attn: Accounting,[address] [place], [place], [address] [place] [address], [facility] 06/04/2023 11:00:15 influenza, split (incl. purified surface antigen) 0 completed Celeste Berrios, BILL OF LADING CLERK, SPEECH ASSISTANT-C Attn: Accounting,[address] [place], [place], [address] [place] [address], [facility] 06/04/2023 11:00:15 Td (adult), 5 Lf tetanus toxoid, preservative free, adsorbed 2 completed Celeste Berrios, BILL OF LADING CLERK, SPEECH ASSISTANT-C Attn: Accounting,[address] [facility], [place], [place], [address] [place] [address], [facility] 06/04/2023 11:00:16 Hep A, pediatric, unspecified formulation 0 completed Celeste Berrios, BILL OF LADING CLERK, SPEECH ASSISTANT-C Attn: Accounting,[address] [place], [place], [address] [place] [address], [facility] 06/04/2023 11:00:16 Hep A, pediatric, unspecified formulation 9 completed Celeste Berrios, BILL OF LADING CLERK, SPEECH ASSISTANT-C Attn: Accounting,[address] [facility], [place], [address], [facility] 06/04/2023 11:00:16 meningococcal MCV4P 4 completed Celeste Berrios, BILL OF LADING CLERK, SPEECH ASSISTANT-C Attn: Accounting,[address] [facility], [place], [address], [facility] 06/04/2023 11:00:16 Influenza, split virus, quadrivalent, PF 4 completed Celeste Berrios, BILL OF LADING CLERK, SPEECH ASSISTANT-C Attn: Accounting,[address] [facility], [place], [address], [facility] 06/04/2023 11:00:16 Meningococcal MCV4O 7 completed Not Available [facility] 04/11/2019 02:33:26 HPV, quadrivalent 5 completed Not Available [facility] 04/11/2019 02:46:38 COVID-19, mRNA, LNP-S, PF, nancy-sucrose, 30 mcg/0.3 mL 4 completed Not Available [facility] 01/26/2025 16:16:56 Influenza, split virus, quadrivalent, PF 7 completed Not Available [facility] 04/11/2019 02:49:07 meningococcal B, OMV 7 completed Not Available [facility] 04/11/2019 02:34:49 Hib, unspecified formulation 2 completed Not Available [facility] 11/25/2022 06:58:28 varicella 9 completed Not Available [facility] 11/25/2022 06:58:28 Hep B, adolescent or pediatric 1 completed Not Available [facility] 11/25/2022 06:58:28 Hep A, ped/adol, 2 dose 0 completed Not Available [facility] 11/25/2022 06:58:28 DTaP 1 completed Not Available [facility] 11/25/2022 06:58:28 pneumococcal conjugate PCV 7 2 completed Not Available [facility] 11/25/2022 06:58:28 influenza, unspecified formulation 0 completed Not Available [facility] 11/25/2022 06:58:28 DTaP 1 completed Not Available [facility] 11/25/2022 06:58:28 MMR 2 completed Not Available [facility] 11/25/2022 06:58:28 DTaP 1 completed Not Available [facility] 11/25/2022 06:58:28 pneumococcal conjugate PCV 7 1 completed Not Available [facility] 11/25/2022 06:58:28 IPV 1 completed Not Available [facility] 11/25/2022 06:58:28 Hep A, ped/adol, 2 dose 9 completed Not Available [facility] 11/25/2022 06:58:28 Hep B, adolescent or pediatric 1 completed Not Available [facility] 11/25/2022 06:58:28 DTaP 2 completed Not Available [facility] 11/25/2022 06:58:28 Hib, unspecified formulation 1 completed Not Available [facility] 11/25/2022 06:58:28 IPV 1 completed Not Available [facility] 11/25/2022 06:58:28 IPV 5 completed Not Available [facility] 11/25/2022 06:58:28 varicella 2 completed Not Available [facility] 11/25/2022 06:58:28 Hib, unspecified formulation 1 completed Not Available [facility] 11/25/2022 06:58:27 DTaP 5 completed Not Available [facility] 11/25/2022 06:58:28 Hib, unspecified formulation 1 completed Not Available [facility] 11/25/2022 06:58:28 MMR 5 completed Not Available [facility] 11/25/2022 06:58:28 Hep B, adolescent or pediatric 1 completed Not Available [facility] 11/25/2022 06:58:28 meningococcal B, OMV 9 completed Not Available [facility] 04/11/2019 02:38:04 Tdap 5 completed BRIANDA [place] [facility] 05/05/2024 16:24:13 HPV, quadrivalent 4 completed Celeste Berrios APN, SPEECH ASSISTANT-C Attn: Accounting,[address] [facility], [place], [address], [place] [facility] 06/04/2023 11:00:16 Tdap 4 completed Not Available [facility] 04/11/2019 02:39:15 HPV, quadrivalent 4 completed Not Available [facility] 04/11/2019 02:48:34 Past Encounters Encounter ID Performer Location Encounter Start Date Encounter Closed Date Diagnosis/Indication Diagnosis SNOMED-CT Code Diagnosis ICD10 Code Diagnosis IMO Codes Diagnosis Note [id number] MD Farheen Mellohalto (Peds) [address] [place] [address] 03/23/2014 14:24:19 03/23/2014 15:42:33 Upper respiratory infection 41608715 supportive care, increase water, good hygiene, repeat temp 98.3, will get shts today Mild inter mittent asthma 598322496 instruct how to use med Impacted cerumen 85326908 wash ears daily [id number] [facility] [address] [place] [address] 04/26/2014 14:30:15 04/26/2014 17:07:33 Upper respiratory infection 58745890 Supportive treatment. Hand hygiene. Fluid intake. Pityriasis versicolor 93777406 Antifungal shampoo to skin 3 x weekly. Stop when gone. [id number] MD Otto Armstrong (Peds) [address] [place] [address] 05/25/2014 09:32:55 05/25/2014 13:16:29 Active or passive immunization 077726179 [id number] MD Otto Armstrong (Peds) [address] [place] [address] 05/27/2014 12:05:48 05/27/2014 15:21:17 Headache 93600873 Differenti al dx. includes tension headaches vs. migraine headaches. Take ibuprofen q 6-8 hours prn headaches. Keep headache journal. Discussed ways to manage stress. Recommende d counseling , but pt. not interested at this time. Notify if headache worsens. Obesity 566406585 BMI 95th %. Discussed diet changes and getting regular exercise. Will check screening labs. [id number] MD Otto Mello (Peds) [address] [place] [address] 07/21/2014 15:18:35 07/21/2014 17:00:19 Low back pain 413845979 xray today at [facility], supportive care, no running Mild inter mittent asthma 941589044 instruct how to use med [id number] MD Otto Mello (Peds) [address] [place] [address] 07/29/2014 09:26:45 07/29/2014 14:43:38 Low back pain 832882978 supportive care, no running, good support shoes, back stretching exercise, referral to ortho in , when pt come back from [place] Impacted cerumen 95385253 wash ears daily Mild inter mittent asthma 904363763 instruct how to use med [id number] MD Otto Mello (Peds) [address] [place] [address] 12/02/2014 09:28:31 12/02/2014 14:47:39 Well child 164465353 balanced diet and exercise, good hygiene, accident prevention , breast self exam dental hygiene, see dentist q 6-12m. Vitamin D deficiency 97187817 milk 2 cups/d, vit D 2000 unit/d, aerobic exercise 30 min/d, water 4-6 cups/d, no caffeine Overweight 299657874 discu ss about healthy balanced diet and exercise, no sweet drink, increase water to 2-3 liters/d, skim milk 2 cup/d live an active life style, exercise 1 hr daily weight loss plan for 2lb/m Mild inter mittent asthma 924707405 instruct how to use med asthma action plan , pefr= 450 Impacted cerumen 53432225 wash ears daily Myopia 07962318 need glasses, pt has contact lenses and did well. [id number] [facility] [address] [place] [address] 12/30/2015 10:48:35 12/30/2015 15:29:34 Hand foot and mouth disease 430718301 B08.4 reassure Mild inter mittent asthma 834043491 J45.20 instruct how to use med asthma action plan , pefr= 450 Impacted cerumen 3437586 6 H61.22 wash ears daily Overweight 292704256 E66 .3 discuss about healthy balanced diet and exercise, no sweet drink, increase water to 2-3 liters/d, skim milk 2 cup/d live an active life style, exercise 1 hr daily weight loss plan for 2lb/m Vitamin D deficiency 347 19400 E55.9 milk 2 cups/d, vit D 2000 unit/d, aerobic exercise 30 min/d, water 4-6 cups/d, no caffeine [id number] MD Farheen Mellohalto (Peds) [address] [place] [address] 03/22/2016 14:02:03 03/27/2016 16:16:54 Tinea corporis 99312551 B35.4 keep hands and feet dry and clean, can use bleach soak daily with 1 tbsp bleach to 1 gallon of water Impacted cerumen 2312388 6 H61.22 wash ears daily Depression screening 171 696438 Z13.89 score = 0 Body mass index 25-29 - overweight 114652914 Z68.29 [id number] MD Farheen Mellohalto (Peds) [address] [place] [address] 05/22/2016 15:31:09 05/24/2016 08:43:40 Depression screening 838657423 Z13.89 score = 0/27 Mild inter mittent asthma 569843410 J45.20 instruct how to use med asthma action plan , pefr= 450 Upper resp iratory infection 69378285 J06.9 supportive care, increase water, good hygiene, repeat temp 98.3, will get shts today, increase fluid, pt is dizzy maybe 2ndary to dehydratio n and hypoglycem ia, check lab today Exacerbati on of intermittent asthma 581935104 J45.21 albuterol q 4 hr until no cough for 2d, smoke free keep nose dry with cetrizine, saline spray prn, increase fluid contact if not better after 2d Overweight 835705443 E66 .3 discuss about healthy balanced diet and exercise, no sweet drink, increase water to 2-3 liters/d, skim milk 2 cup/d live an active life style, exercise 1 hr daily weight loss plan for 2lb/m d/w mom pt lost wt too fast [id number] MD Otto Mello (Peds) [address] [place] [address] 05/23/2016 16:20:56 05/25/2016 11:42:54 Asthmatic bronchitis 893025640 J45.909 after duo neb pt was better. less hacking, albuterol q 4 hr until no cough for 2d, smoke free keep nose dry with cetrizine, saline spray prn, increase fluid contact if not better after 2d [id number] MD Otto Mello (Peds) [address] [place] [address] [place] [address] 05/30/2016 16:09:41 06/01/2016 10:48:40 Mild intermittent asthma 733552895 J45.20 instruct how to use med asthma action plan , pefr= 450 Allergic rhinitis 895627 04 J30.89 environmen t control, keep nose dry ,saline spray prn, smoke free cetirizine or claritine prn, OTC, rtc prn Active or passive immunization [id number] Z23 Overweight 410230179 E66 .3 discuss about healthy balanced diet and exercise, no sweet drink, increase water to 2-3 liters/d, skim milk 2 cup/d live an active life style, exercise 1 hr daily weight loss plan for 2lb/m d/w mom pt lost wt too fast [id number] MD Otto Taylor (Peds) [address] [place] [address] 11/14/2016 16:09:47 11/16/2016 11:19:10 Exacerbation of intermittent asthma 891284076 J45.21 [id number] [facility] [address] [place] [address] 12/18/2016 14:43:59 12/21/2016 18:00:42 Low back pain 431912508 M54.5 Suspect overuse injury or strain of muscles from lifting weights. Recommend rest, ice, massage, and ibuprofen. F/u in 2 weeks if no improvemen t. Size of br is[place] unequal 184671674 N65.1 Reassured patient that size discrepanc y is within normal limits. Notify if notice any mass, discharge or rapid increase in growth. [id number] [facility] [address] [place] [address] 01/09/2017 16:32:12 01/11/2017 09:32:08 Viral upper respiratory tract infection 948524445 J06.9 Mild inter mittent asthma 537887713 J45.20 [id number] [facility] [address] [place] [address] 02/07/2017 15:48:34 02/20/2017 09:39:24 Well child 023413479 Z00.215 [id number] MD [facility] [address] [place] [address] 08/06/2017 11:12:02 08/07/2017 14:30:06 Acute tonsillitis 73077876 J03.90 Rapid strep negative. Will send for throat cx. Given that pt's brother recently diagnosed with strep, pt. being symptomati c, and pt. [place] the [place], will go ahead and start Amox. If culture results available prior to departure, will stop abx. if culture is negative. Mild inter mittent asthma 744672790 J45.20 Will give refill on inhaler. Will also start pt. on singulair. Notify if using inhaler more than twice a week or if pt. has nocturnal cough > 2 X/wk. Allergic rhinitis 169537 [address] on zyrtec, will refill flonase. [id number] MD Otto Taylor (Peds) [address] [place] [address] 03/28/2018 14:57:20 03/31/2018 12:39:07 Exacerbation of intermittent asthma 636471515 J45.21 [id number] MD Otto Armstrong (Peds) [address] [place], [place] [address], [place] [address] 05/01/2018 13:40:30 05/02/2018 14:08:58 Prolonged periods 582545759 N92.5 Pt. having period for 1 month, no previous h/o irregular periods. Will check screening labs. Discussed starting OCPs to help regulate period, pt does not want to start at this time and wants to wait until lab results known. Vitamin D deficiency 347 02055 E55.9 Last level checked 26.7 12/30/2015, will recheck level today. Constipation 20489886 K5 9.00 Increase fruits, vegetables and water intake. Will place on trial of miralax. [id number] MD Sakina Babb [address] [facility] [address] [place], [place] [address], [place] [address] 11/12/2018 09:51:49 11/13/2018 10:16:12 History of asthma 814166861 Z87.09 Active or passive immunization 721007159 Z23 [id number] MD Otto Sousa (Adult Med) [address] [place] [address] 06/10/2019 13:53:19 06/11/2019 11:30:47 Adult health examination 734948779 Z00.01 Encouraged routine [employer], vision, dental exams, well balanced diet. Mild inter mittent asthma 487317671 J45.20 dwp prn albuterol usereviewe d AAP Vitamin D deficiency 347 29951 E55.9 check lab Acne 84761539 L70.9 numerous closed and open comedones on face and chestdwp hygiene, use of make up and skin care regimen [id number] MD Otto Sousa (Adult Med) [address] [place] [address] 12/17/2019 08:22:43 12/18/2019 12:07:32 Neck pain 05763123 M54.2 no trauma hx or injury, sore since sleeping wrong on in a few weeks ago; dwp heating pad, prn muscle relaxer and ibu, also may cont OTC tylenol prn; will obtain xray if continued pain [id number] MD Otto Sousa (Adult Med) [address] [place] [address] 04/01/2020 08:24:58 04/04/2020 11:19:22 Acute sinusitis 66388899 J01.90 sinus pressure with purulent drainage, start amox 500 mg TID Dysfunctio n of eustachian tube 84062732 H68.013 c/o fluid in ears, dwp flonase or other inhaled nasal steroid to reduce inflammati on [id number] MD Otto Sousa (Adult Med) [address] [place] [address] 05/27/2020 16:06:48 05/30/2020 21:42:35 Chronic constipation 967527793 K59.09 dwp diet changes, prn stool softener, MoM or miralax, ok to cont tea Hemorrhoids 78105768 K64 .9 recent flare and bleeding, dwp topicals, manage constipati on better, increase fluids Vitamin D deficiency 347 68626 E55.9 check lab Painless r ectal bleeding 463259348 K62.5 no labs done at ER, dwp labs needed Endocrine/ metabolic screening 634657412 Z13.228 Cholesterol screening 27 1513515 Z13.220 Overweight 961452179 E66 .3 [id number] MD Otto Sousa (Adult Med) [address] [place] [address] 12/15/2020 08:24:33 12/19/2020 10:24:17 Otalgia 73602352 H92.03 recurrent infections and pain, has been going to ER for treatment, rx for topical and will refer to ent Vitamin D deficiency 347 86892 E55.9 low , start high dose weekly replacemen t [id number] MD Otto Sousa (Adult Med) [address] [place] [address] 05/25/2021 16:12:53 05/29/2021 07:26:44 Acute bilateral otitis media 530163327 H66.93 Andrea TM erythema and edema/bulg ing, will send amox Vitamin D deficiency 347 65597 E55.9 low , start high dose weekly replacemen t Unintentio nal weight gain 6522410109 63285 R63.5 dwp will check labs, keep log of diet, work on cutting out junk food and sugars [id number] MD Otto Sousa (Adult Med) [address] [place] [address] 06/15/2021 15:52:33 06/16/2021 06:29:02 Dysfunction of eustachian tube 91843989 H68.013 c/o fluid in ears, dwp flonase or other inhaled nasal steroid to reduce inflammati on Posterior rhinorrhea 758 04986 R09.82 start daily antihistam ine, will send zyrtec Vitamin D deficiency 347 00344 E55.9 cont high dose weekly replacemen t Obesity 345198741 E66.9 advised low fat, low cholestero l diet, regular exercise and weight reduction. [id number] MD Otto Sousa (Adult Med) [address] [place] [address] 11/22/2021 11:58:25 11/22/2021 12:34:29 Otitis externa of bilateral ears 3403375426 168032 H60.93 andrea ear canal erythema, edema, will send topical abx Obesity 047039814 E66.9 advised low fat, low cholestero l diet, regular exercise and weight reduction. Acute bila teral otitis media 274476145 H66.93 Andrea TM erythema and edema/bulg ing, will send amox [id number] MD Otto Bartlett (Adult Med) [address] [place] [address] 01/02/2022 11:01:22 01/03/2022 08:12:19 Bilateral external auditory canal chronic otitis externa 4206493875 691074 H60.63 stop drops keep ears dry [id number] MD Otto Sousa (Adult Med) [address] [place] [address] 12/20/2022 14:40:58 12/23/2022 11:16:36 Low back pain 226089377 M54.50 ER report reviewed; xray wnl Obesity 471753921 E66.9 advised low fat, low cholestero l diet, regular exercise and weight reduction. Sciatica 21969373 M54.30 dwp stretching , will send to PT [id number] MD Otto Sousa (Adult Med) [address] [place] [address] 06/04/2023 10:43:00 06/07/2023 10:50:57 Mild intermittent asthma 350226323 J45.20 dwp prn albuterol usereviewe d AAP Dysfunctio n of eustachian tube 13272169 H68.013 c/o fluid in ears, dwp flonase or other inhaled nasal steroid to reduce inflammati on Obesity 316088418 E66.9 advised low fat, low cholestero l diet, regular exercise and weight reduction. Vitamin D deficiency 347 52105 E55.9 cont high dose weekly replacemen t Adult heal th examination 528798202 Z00.01 Encouraged routine [employer], vision, dental exams, well balanced diet. Irregular periods 273420 07 N92.6 advised to follow up with gyne but will check a1c Sciatica 27224030 M54.30 dwp stretching , will send to PT Impacted c erumen of bilateral ears 0602904087 455873 H61.23 excessive ear wax, declined lavage in office, dwp debrox use [id number] MD Otto BARROSO ([facility]) [address] [place] [address] 06/27/2023 13:56:12 07/12/2023 17:07:48 Routine gynecologic examination done 9481870567 9101 Z01.419 - Reviewed risks for infection and cancer; ordered screening tests as appropriat e- Recommende d annual flu vaccine and updated 2022 COVID vaccine Screening for malignant neoplasm of cervix 688513933 Z12.4 - Due for Pap; collected today Pruritus of vagina 35285 003 L29.3 - f/u NuSwab; will treat as indicated by results [id number] MD Otto Sousa (Adult Med) [address] [place] [address] 11/28/2023 14:59:53 12/11/2023 08:58:50 Sciatica 54115341 M54.30 dwp stretching , will send to PT Unintentio nal weight gain 5977306895 73756 R63.5 dwp will check labs, keep log of diet, work on cutting out junk food and sugars Abdominal bloating 25492 9008 R14.0 c/o gas pain for several days, ok now;dwp diet changes Right uppe r quadrant pain 151990687 R10.11 starts in back and radiates to front, feels like cramping [id number] MD Otto Sousa (Adult Med) [address] [place] [address] 05/05/2024 15:39:38 05/06/2024 16:39:21 Adult health examination 103932998 Z00.01 Encouraged routine [employer], vision, dental exams, well balanced diet. Obesity 874429017 E66.9 advised low fat, low cholestero l diet, regular exercise and weight reduction. Vitamin D deficiency 347 47497 E55.9 cont high dose weekly replacemen t Mild inter mittent asthma 326192871 J45.20 dwp prn albuterol usereviewe d AAP Tingling of skin 0441715 07 R20.2 c/o tingling at HS, will get lab Administra tion of diphtheria, pertussis, and tetanus vaccine 289715318 Z23 Health Concerns Section Related Observation LastModified by Organization Detai ls LastModified Time None Recorded Concern Status LastModified by Organization Details LastModified Time None Recorded Advance Directives Directive N: Payers Insurance Date Sequence Insurance Name Policy Number Policy Westfall Covered Member ID Westfall Member ID Guarantor Name 01/23/2025 1 [facility] (MEDICAID HMO) [id number] Sema Tadeo [id number] Sema Tadeo 06/26/2023 1 [facility] (MEDICAID HMO) [id number] Sema Tadeo [id number] Sema Tadeo 06/26/2023 [facility] (MEDICAID HMO) [id number] Deepak Piedra [id number] Deepak Tadeo 06/26/2023 1 [place] [employer] Deepak Piedra [id number] Deepak Piedra Notes Date Note Type Note Provider Name and Address Organization Details Recorded Time 06/04/2023 text/html ROS as noted in the HPI pt c/o lower back pain for years. Used to sciatic pain. 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 No change in [...] cancer: Never smoker. MYRIAM PEACE MD Attn: [address] [place], [address], [facility] 06/27/2023 16:13:38 11/28/2023 text/html ROS as noted in the HPI went to ER for back pain- referred to PT. Still has 5 more visits before ins with cover MRI. pt c/o stomach and back pain states it feels like her stomach is clyde. started 2 weeks ago. denies nausea and diarrhea. but only happens when her back is hurting her. was given muscle relaxer and diclofenac Pt concerned with rapid weight gain. Celeste Berrios APN, FNP-C Attn: [address] [facility], [place], [address], [facility] 12/10/2023 20:37:38 05/05/2024 text/html ear pain and drainage for 3 days.would like cholesterol and vit D checked.sometimes at HS she c/o tingling down arms and legs when she eats late at night Celeste Berrios APN, COURTNEYC Attn: [address] [facility], [place], [address], [facility] 05/05/2024 16:23:13 01/26/2025 text/html unexplained weight gain- barely eats fast food.pt states she gets gassy and bloated when drinking milk- has never has this issue beforeafter eating fatty food she feels like her blood sugar spikes and she gets sick feeling and fingertips feel numb.wants thyroid checked Not Available Not Available Not Available OBGyn Episode No OBEpisode recorded.
[2025-01-29 15:45] VITALS: BP 123/77; PULSE 95; RESP 16; TEMP 36.8; O2SAT 100
--- NOTE | 2025-01-29 16:11 | ED.URI ---
HPI - URI/Sore Throat General Chief Complaint: Upper Respiratory Infection Stated Complaint: throat/ears Time Seen by Provider: 01/29/25 16:05 Source: patient, RN notes reviewed and old records reviewed Mode of arrival: ambulatory Limitations: no limitations History of Present Illness HPI Narrative: 24 year old female who presents to express care for her throat and her ears. Patient reports that she she saw her PCP 2-3 days ago for throat issue, has obvious swelling around neck and was told that it is probably related to thyroid and did have labs drawn at that time and is awaiting results. Patient reports that she is having some shortness of breath also, does have history of asthma, was prescribed an inhaler by PCP at last visit also but has not used it. She states that her ears feel more muffled than usual in the morning and has history of ear infections, Patient denies any pain. She reports that she has noted for the past month constipation, fatigue, and dry skin that she feels are thyroid related. MD elicited complaint: sore throat and other (ear pain) Pertinent past history: asthma Severity: mild Able to tolerate fluids by mouth: Yes Treatments prior to arrival: none Related Data Home Medications ?Medication ?Instructions ?Recorded ?Confirmed ?Last Taken ?Type albuterol sulfate 90 mcg/actuation inhalation 01/29/25 Unknown History aerosol inhaler Allergies Allergy/AdvReac Type Severity Reaction Status Date / Time No Known Allergies Allergy Verified 01/29/25 15:41 Review of Systems Review of Systems: CONSTITUTIONAL: Denies malaise, chills, sweats, or fever. EYES: Denies visual changes, redness, or discharge. ENT: Reports rhinorrhea, congestion, sinus pain, ears feel muffled and irritated throat. CARDIOVASCULAR: Denies chest pain, palpitations, or edema. RESPIRATORY: Reports no acute cough.? states she feels some dyspnea. GASTROINTESTINAL: Denies abdominal pain, nausea, vomiting, diarrhea, reports constipation SKIN: Denies rash or itching.reports dry skin MUSCULOSKELETAL: Denies myalgia. NEUROLOGIC: Denies headache. All systems reviewed & are unremarkable except as noted in HPI and below PMFSH Past Medical History Medical History Fracture of finger of left hand 5th finger Asthma Surgical History Surgical History No pertinent past surgical history Family History Family History Mother Unknown family medical history Social History Social History Additional smoking assessment comments: no smoking Alcohol intake: current Alcohol use details: rare social Substance use: never Living arrangements: with family Gender identity (if verbalized by the patient): Female Spiritual care concerns: No Comments At time of signature, agree with nursing past medical, surgical, social and family history. There is no relevant family history pertinent to the presenting complaint Exam Narrative: GENERAL: Well-appearing, well-nourished, and in no acute distress. HEAD: Normocephalic EYES: PERRLA, conjunctivae clear ENT: Nares clear, turbinates edematous and erythematous, clear discharge. Mucous membranes moist. TM pearly levy with dull light reflex bilaterally; no tragal tenderness. Oropharynx erythematous without lesions. Tonsils not enlarged and without exudate, no drooling, no hoarseness, no trismus, uvula midline, no signs of Darrel angina, no difficulty swallowing NECK: Supple. No lymphadenopathy, has swelling in her neck along thyroid glands with palpable firmness of glands CHEST: Clear to auscultation, breath sounds equal. No wheezing, rhonchi, rales, or stridor. No respiratory distress, speaks in full sentences.no cough noted no tachypnea noted or any retractions SAO2 100% on room air HEART: Regular rate and rhythm. No murmur heard. SKIN: Warm, dry, no rash. NEURO: Alert and oriented x3. PSYCH: Normal mood and affect Course Course Emergency Course: Patient is aware of diagnosis, understands and agrees to treatment plan.? Anticipatory guidance given.? Patient agrees to follow-up as directed and is aware of reasons to seek care at the emergency department. Portions of this record may have been created with voice recognition software Level of Care: Express Care Visit Vital Signs Vital signs: Vital Signs Temperature 36.8 C 01/29/25 15:45 Pulse Rate 95 01/29/25 15:45 Respiratory Rate 16 01/29/25 15:45 Blood Pressure 123/77 01/29/25 15:45 Pulse Oximetry 100 01/29/25 15:45 Oxygen Delivery Room Air 01/29/25 15:45 Temperature 36.8 C 01/29/25 15:45 Pulse Rate 95 01/29/25 15:45 Respiratory Rate 16 01/29/25 15:45 Blood Pressure 123/77 01/29/25 15:45 Pulse Oximetry 100 01/29/25 15:45 Oxygen Delivery Room Air 01/29/25 15:45 Reviewed MDM - URI/Sore Throat MDM Narrative Medical decision making narrative: Differential diagnosis considered: [place] virus, strep pharyngitis, allergic rhinitis, upper respiratory tract infection, sinusitis, rhinosinusitis, nasopharyngitis. viral pharyngitis, otitis media, otitis externa, pneumonia, bronchitis, viral cough syndrome, viral syndrome, and influenza.?Patient does have swelling of lower neck along thyroid glands with firmness noted of glands, has seen PCP 2-3 days ago and is awaiting lab results. Patient displays no difficulty with respiratory status or with swallowing, no trismus or any signs of Darrel angina.Exam findings show no acute concerns or changes; patient is non-toxic appearing and is in no distress.? Patient is appropriate for outpatient treatment and follow-up. Differential Diagnosis Differential diagnosis: Likely other (eustachian tube dyfunction, asthma, swollen thyroid glands, throat discomfort) Medical Records Attestation: I reviewed the patient's medical records. Lab Data Attestation: I reviewed the patient's lab results. Lab results narrative: strep screen negative culture sent Labs: Lab Results 01/29/25 Range/Units 18:13 POC Grp A Strep Screen Negative (Negative) reviewed Critical Care Time Critical Care Time Critical Care Time: No Discharge Plan Discharge Clinical Impression: Dysfunction of both eustachian tubes, Throat pain Patient Disposition: Home Condition: Stable Instructions: Pharyngitis (ED), Barotrauma (ED) Additional Instructions: Increase fluids especially juices and water [id number] cough and cold medicine of your choice for your symptoms Continue your inhaler/nebulizer as directed Steroids as directed--take with food heat to the face 20-30 minutes 4-6 times a day for pain Salt water gargles, throat lozenges or throat sprays as desired Your strep test today was negative. A throat culture will be sent to the laboratory for further testing. IF the test is positive, you will receive a phone call within 48 hours and an appropriate antibiotic will be initiated at that time. If any concern for increased swelling or any difficulty with breathing or swallowing go to ED immediately Patient Language: Bahraini Prescriptions: New methylprednisolone [Medrol (Larry)] 4 mg tablets,dose pack See Rx Instructions .ROUTE .COMPLEX Qty: 21 0RF Rx Instructions: orally per package directions cetirizine-pseudoephedrine [Zyrtec-D] 5-120 mg tablet extended release 12 hr 1 tablet PO Q12H Qty: 20 0RF No Action albuterol sulfate 90 mcg/actuation HFA aerosol inhaler INHALATION Follow-up/Referrals: Claire,Celeste Yeung APN [Primary Care Provider, Unknown] Time of Disposition: 16:17 Quality [place] Coma Scale Eyes: Open Verbal: Oriented and Alert Motor: Follows Commands Greyson Coma Total Score: 15
[2025-01-29 18:15] LABS: EDSTREPNEGPOS1 Negative (Negative)
== END 2025-01-29 16:27 | disposition home or self-care (01) ==
LOC: EXPBETH 15:42
PROVIDERS: Emergency Provider Registered Nurse; PCP Nurse Practitioner Family
DX: H69.93 Unspecified Eustachian tube disorder, bilateral (principal); R07.0 Pain in throat; J45.909 Unspecified asthma, uncomplicated
CPT/HCPCS: 87081; 87880; 99213; G0463

== ENCOUNTER 2025-03-03 10:57 | Emergency (ER) | payer OTHER, SELFPAY ==
[2025-03-03 11:02] VITALS: BP 118/67; PULSE 93; RESP 16; TEMP 36.7; O2SAT 99
--- NOTE | 2025-03-03 11:53 | ED_ITS ---
HPI - URI/Sore Throat General Chief Complaint: Upper Respiratory Infection Stated Complaint: Nasal Congestion/Eye Problem/Cough Time Seen by Provider: 03/03/25 11:45 Source: patient, RN notes reviewed and old records reviewed Mode of arrival: ambulatory Limitations: no limitations History of Present Illness HPI Narrative: 24 year old female who presents to [facility] care with complaints of 4 day history of cough congestion, runny nose ears feel full with sore throat and headache. Patient reports that she does have history of asthma and her cough has been more frequent with no acute shortness of breath noted. She states that her ears feel full and hearing is muffled. Patient reports that she has been taking Tylenol cold and sinus medication for her symptoms. Patient reports that she has felt flushed but suarez not had any known fevers. MD elicited complaint: cough and sore throat Pertinent past history: asthma Onset (ago): day(s) (4) Pain scale (0-10): 8 Able to tolerate fluids by mouth: Yes Treatments prior to arrival: other (Tylenol cold and sinus) Related Data Home Medications ?Medication ?Instructions ?Recorded ?Confirmed ?Last Taken ?Type albuterol sulfate 90 mcg/actuation inhalation 03/03/25 Unknown History aerosol inhaler hydroxyzine HCl 25 mg tablet mg 03/03/25 Unknown Hist ory Allergies Allergy/AdvReac Type Severity Reaction Status Date / Time No Known Allergies Allergy Verified 03/03/25 11:04 Review of Systems Review of Systems: CONSTITUTIONAL: reports malaise,no chills, sweats, or known fever, has felt flushed EYES: Denies visual changes, redness, or discharge. ENT: Reports rhinorrhea, congestion, sinus pain, bilateral otalgia and +sore throat. CARDIOVASCULAR: Denies chest pain, palpitations, or edema. RESPIRATORY: Reports cough.? Denies dyspnea. GASTROINTESTINAL: Denies abdominal pain, nausea, vomiting, diarrhea SKIN: Denies rash or itching. MUSCULOSKELETAL: Denies myalgia. NEUROLOGIC:Reports headache. All systems reviewed & are unremarkable except as noted in HPI and below PMFSH Past Medical History Medical History Fracture of finger of left hand 5th finger Asthma Surgical History Surgical History No pertinent past surgical history Family History Family History Mother Unknown family medical history Social History Social History Smoking status: Never smoker Additional smoking assessment comments: no smoking Alcohol intake: current Alcohol use details: rare social Substance use: never Living arrangements: with family Gender identity (if verbalized by the patient): Female Spiritual care concerns: No Comments At time of signature, agree with nursing past medical, surgical, social and family history. There is no relevant family history pertinent to the presenting complaint Exam Narrative: GENERAL: Well-appearing, well-nourished, and in no acute distress. HEAD: Normocephalic EYES: PERRLA, conjunctivae clear ENT: Nares clear, turbinates edematous and erythematous, clear discharge.,sinus pressure, headache, and mucous membranes moist.Right TM red Left TM pearly levy with dull light reflex ; no tragal tenderness. Oropharynx erythematous without lesions. Tonsils not enlarged and without exudate, no drooling, no hoarseness, no trismus, uvula midline.post nasal drainage noted NECK: Supple. No lymphadenopathy CHEST: Clear to auscultation, breath sounds equal. No wheezing, rhonchi, rales, or stridor. No respiratory distress, speaks in full sentences. cough noted SAO2 99% on room air HEART: Regular rate and rhythm. No murmur heard. SKIN: Warm, dry, no rash. NEURO: Alert and oriented x3. PSYCH: Normal mood and affect Course Course Level of Care: Express Care Visit Vital Signs Vital signs: Vital Signs Temperature 36.7 C 03/03/25 11:02 Pulse Rate 93 03/03/25 11:02 Respiratory Rate 16 03/03/25 11:02 Blood Pressure 118/67 03/03/25 11:02 Pulse Oximetry 99 03/03/25 11:02 Oxygen Delivery Room Air 03/03/25 11:02 Temperature 36.7 C 03/03/25 11:02 Pulse Rate 93 03/03/25 11:02 Respiratory Rate 16 03/03/25 11:02 Blood Pressure 118/67 03/03/25 11:02 Pulse Oximetry 99 03/03/25 11:02 Oxygen Delivery Room Air 03/03/25 11:02 [facility] Narrative Medical decision making narrative: * 24 year old female with URI symptoms, ear pain and sore throat with all testing negative, Patient is positive for acute cough and right otitis media, will treat with antibiotic and steroids and recommendation of OTC antihistamines and decogestants and use of inhaler as needed.Anticipatory guidance and reasons to seek care in ED reviewed with understaning voiced. Differential Diagnosis Differential Diagnosis: Differential diagnostic considerations for upper respiratory infection include upper respiratory infection, croup, otitis media, sinusitis, viral infection, bronchitis, influenza, pharyngitis, strep, uvulitis.? Lab Data [facility] Lab Attestation statement: I personally reviewed the patient's lab results. Lab results narrative: strep screen negative, culture sent, Influenza A&B negative, COVID antigen negative Labs: Lab Results 03/03/25 Range/Units 12:03 POC Influenza A Ag Negative (Negative) POC Influenza B Ag Negative (Negative) POC SARS CoV-2 Ag Negative (Negative) POC Grp A Strep Screen Negative (Negative) reviewed Critical Care Time Critical Care Time Critical Care Time: No Discharge Plan Discharge Clinical Impression: Otitis media, right Qualifiers: Otitis media type: serous Chronicity: acute Recurrence: non-recurrent Qualified Code(s): H65.01 - Acute serous otitis media, right ear Cough Qualifiers: Cough type: acute Qualified Code(s): R05.1 - Acute cough Patient Disposition: Home Condition: Stable Instructions: Antibiotic Form, Ear Infection (GEN), Acute Cough (ED) Additional Instructions: Increase fluids especially juices and water [id number] cough and cold medicine of your choice for your symptoms Zyrtec Claritin or Catie daily may include plain Sudafed daily Continue your inhaler/nebulizer as directed Steroids as directed--take with food heat to the face 20-30 minutes 4-6 times a day for pain Salt water gargles, throat lozenges or throat sprays as desired Antibiotic as directed--finished the medication Tylenol or Ibuprofen for any fever or pain If your symptoms persist, change or worsen significantly before you can contact your personal physician then please, without delay, go to the emergency department for further evaluation. Follow-up with PCP in 7-10 days or sooner if needed Patient Language: [place]an Prescriptions: New amoxicillin-pot clavulanate 875-125 mg tablet 1 tablet PO Q12H Qty: 20 0RF Rx Instructions: take all doses of oral antibiotic encourage taking probiotic daily while on this medication or eating Activa yogurt prednisone 20 mg tablet 40 mg PO DAILY 5 Days Qty: 10 0RF No Action hydroxyzine HCl 25 mg tablet albuterol sulfate 90 mcg/actuation HFA aerosol inhaler INHALATION Follow-up/Referrals: Claire,Celeste Yeung APN [Primary Care Provider, Unknown] Time of Disposition: 12:08 Quality [place] Coma Scale Eyes: Open Verbal: Oriented and Alert Motor: Follows Commands [place] Coma Total Score: 15
[2025-03-03 12:06] LABS: EDCOVIDSCREEN Negative (Negative); EDINFLUASCREEN Negative (Negative); EDINFLUBSCREEN Negative (Negative); EDSTREPNEGPOS1 Negative (Negative)
== END 2025-03-03 12:10 | disposition home or self-care (01) ==
PROVIDERS: Emergency Provider Registered Nurse; PCP Nurse Practitioner Family
DX: H66.91 Otitis media, unspecified, right ear (principal); R05.1 Acute cough; Z20.822 Contact with and (suspected) exposure to COVID-19; J45.909 Unspecified asthma, uncomplicated
CPT/HCPCS: 87081; 87426; 87804; 87880; 99213; G0463

== ENCOUNTER 2025-03-19 11:27 | Emergency (ER) | payer OTHER, SELFPAY ==
--- OUTSIDE RECORDS SUMMARY | 2025-03-19 11:30 | XMS_ITS | Continuity of Care Document ---
Author Organization [facility] Address [address] [place] [address] Care Team Providers Care Security Control Room Officer Name Role Phone CLAIRE, CELESTE Primary Care Provider Assessment No assessment recorded. Plan of Treatment Reminders Order Date Submit Date Provider Last Modified By Organization Details Last Modified Time Details Appointments None recorded. Lab celiac disease serology panel, serum 2024 025 [facility], [address] [place] [address], [id number], 14:11:15 amylase + lipase, serum 2024 025 [facility], [address] [place] [address], [address], 5 14:11:20 food allergen panel, serum 2024 025 [facility], [address] [place] [address], [place], [address], 5 14:11:17 TSH + free T4, serum 2024 025 [facility], [address] [place] [address], [address], 5 14:11:16 CBC w/ auto diff 2024 025 [facility], [address] [place] [address], [address], 14:11:20 insulin, serum 2024 025 [facility], [address] [place] [address] 2, [place], [address], 14:11:19 vitamin D, 25-hydroxy , total, serum 2024 025 [facility], [address] [place] [address] 2, [place], [address], 14:11:21 cobalamin and folate panel, serum 2024 025 [facility], [address] [place] [address], [place], [address], 14:11:18 HbA1c (hemoglobi n A1c), blood 2024 025 [facility], [address] [place] [address], [place], [address], 14:11:19 CMP, serum or plasma 2024 025 [facility], [address] [place] [address], [place], [address], 14:11:17 Referral None recorded. Procedures None recorded. Surgeries None recorded. Imaging None recorded. Medication Orders albuterol sulfate HFA 90 mcg/actuat ion aerosol inhaler 2024 025 [id number], [address], [place], [place], [id number], 16:42:58 Patient TargetsNo targets recorded. Patient Instructions Encounter Date Encounter Id Patient Instructions Last Modified By Organization Details Last Modified Time 01/26/2025 [id number] hypoglycemia: care instructions Not available 01/26/2025 16:42:36 Please call office if any questions or concerns. Take all medicines as prescribed and follow with all specialists as planned. Not available 02/10/2025 09:50:44 dwp labs needed, plan pending results Not available 02/10/2025 09:50:52 Reason for Referral None Reported. Results Created Date Observation Date Name Description Value Unit Range Abnormal Flag Note LastModifiedBy Organization Detail LastModifiedTime 01/28/2001/28/2025 XIANG C DISEA SE PANEL endomysial antibody IgA NEGATI VE negati ve Not Available [facility] ([facility]) [address] [facility], [place], [address], 02/01/2025 14:11:15 01/28/2001/28/2025 XIANG C DISEA SE PANEL T-transgluta minase (ttg) IgA <2 U/mL 0-3 Negat speedy 0 - 3 Weak Posit speedy 4 - 10 Posit speedy >10 Tissu e Trans gluta ben e (tTG) has been ident ified as the endom ysial antig en. Studi es have demon str- ated that endom ysial IgA antib odies have over 99% speci ficit y for glute n sensi tive enter opath y. Not Available [facility] ([facility]) [address] [facility], [place], [address], 02/01/2025 14:11:15 01/28/2001/28/2025 XIANG C DISEA SE PANEL immunoglobul in A, qn, serum 180 mg/dL 87-352 Not Available [facility] ([facility]) [address] [facility], [place], [address], 02/01/2025 14:11:15 01/28/2001/28/2025 TSH+F REE T4 TSH 2.410 uIU/m L 0.450- 4.500 Not Available [facility] ([facility]) [address] [facility], [place], [address], 02/01/2025 14:11:16 11/05/20 25 01/28/2025 TSH+F REE T4 T4,free(dire ct) 1.14 NG/dL 0.82-1 .77 Not Available [facility] ([facility]) [address] [facility], [place], [address], 02/01/2025 14:11:16 01/28/20 25 01/28/2025 CMP14 +EGFR glucose 75 mg/dL 70-99 Not Available [facility] ([facility]) [address] [facility], [place], [address], 02/01/2025 14:11:16 01/28/20 25 01/28/2025 CMP14 +EGFR BUN 13 mg/dL 6-20 Not Available [facility] ([facility]) [address] [facility], [place], [address], 02/01/2025 14:11:16 01/28/20 25 01/28/2025 CMP14 +EGFR creatinine 0.74 mg/dL 0.57-1 .00 Not Available [facility] ([facility]) [address] [facility], [place], [address], 02/01/2025 14:11:16 01/28/20 25 01/28/2025 CMP14 +EGFR eGFR 116 mL/mi n/1.7 3 >59 Not Available [facility] ([facility]) [address] [facility], [place], [address], 02/01/2025 14:11:16 01/28/20 25 01/28/2025 CMP14 +EGFR BUN/creatini ne ratio 18 9-23 Not Available [facility] ([facility]) [address] [place], [address], 02/01/2025 14:11:16 01/28/20 25 01/28/2025 CMP14 +EGFR sodium 140 mmol/ L 134-14 4 Not Available [facility] ([facility]) [address] [place], [address], 02/01/2025 14:11:16 01/28/20 25 01/28/2025 CMP14 +EGFR potassium 4.3 mmol/ L 3.5-5. 2 Not Available [facility] ([facility]) [address] [place], [address], 02/01/2025 14:11:16 01/28/20 25 01/28/2025 CMP14 +EGFR chloride 102 mmol/ L 96-106 Not Available [facility] ([facility]) [address] [place], [address], 02/01/2025 14:11:16 01/28/20 25 01/28/2025 CMP14 +EGFR carbon dioxide, total 22 mmol/ L 20-29 Not Available [facility] ([facility]) [address] [place], [address], 02/01/2025 14:11:16 01/28/20 25 01/28/2025 CMP14 +EGFR calcium 9.3 mg/dL 8.7-10 .2 Not Available [facility] ([facility]) [address] [place], [address], 02/01/2025 14:11:16 01/28/20 25 01/28/2025 CMP14 +EGFR protein, total 7.0 g/dL 6.0-8. 5 Not Available [facility] ([facility]) [address] [place], [address], 02/01/2025 14:11:16 01/28/20 25 01/28/2025 CMP14 +EGFR albumin 4.7 g/dL 4.0-5. 0 Not Available [facility] ([facility]) [address] [place], [address], 02/01/2025 14:11:16 01/28/20 25 01/28/2025 CMP14 +EGFR globulin, total 2.3 g/dL 1.5-4. 5 Not Available [facility] ([facility]) [address] [place], [address], 02/01/2025 14:11:16 01/28/20 25 01/28/2025 CMP14 +EGFR bilirubin, total 0.6 mg/dL 0.0-1. 2 Not Available [facility] ([facility]) [address] [facility], [place], [address], 02/01/2025 14:11:16 01/28/20 25 01/28/2025 CMP14 +EGFR alkaline phosphatase 69 IU/L 41-116 Not Available [facility] ([facility]) [address] [place] [place], [address], 02/01/2025 14:11:16 01/28/20 25 01/28/2025 CMP14 +EGFR AST (SGOT) 15 IU/L 0-40 Not Available [facility] ([facility]) [address] [facility], [place], [address], 02/01/2025 14:11:16 01/28/20 25 01/28/2025 CMP14 +EGFR ALT (SGPT) 16 IU/L 0-32 Not Available [facility] ([facility]) [address] [facility], [place], [address], 02/01/2025 14:11:16 01/28/20 25 01/27/2025 FOOD ALLER GY PROFI LE W/REF THANIA class description COMMEN T Level s of Speci fic IgE Class Descr iptio n of Class ----- ----- ----- ----- ----- -- ----- ----- ----- ----- ----- < 0.10 0 Negat speedy 0.10 - 0.31 0/I Equiv ocal/ Low 0.32 - 0.55 I Low 0.56 - 1.40 II Moder ate 1.41 - 3.90 III High 3.91 - 19.00 IV Very High 19.01 - 100.0 0 V Very High >100. 00 Very High Not Available [facility] ([facility]) [address] [facility], [place], [address], 02/01/2025 14:11:17 01/28/20 25 02/01/2025 FOOD ALLER GY PROFI LE W/REF THANIA D748-KpN egg white 0.33 kU/L classi abnormal Not Available [facility] ([facility]) [address] [place], [address], 02/01/2025 14:11:17 01/28/20 25 02/01/2025 FOOD ALLER GY PROFI LE W/REF THANIA V368-OqJ peanut <0.10 kU/L class0 Not Available [facility] ([facility]) [address] [facility], [place], [address], 02/01/2025 14:11:17 01/28/20 25 02/01/2025 FOOD ALLER GY PROFI LE W/REF THANIA Y200-BqJ soybean <0.10 Not Available [facility] ([facility]) [address] [place], [address], 02/01/2025 14:11:17 01/28/20 25 02/01/2025 FOOD ALLER GY PROFI LE W/REF THANIA R747-ZiW milk 0.28 kU/L class0 /I abnormal Not Available [facility] ([facility]) [address] [place], [address], 02/01/2025 14:11:17 01/28/20 25 02/01/2025 FOOD ALLER GY PROFI LE W/REF THANIA F708-ReB clam <0.10 kU/L class0 Not Available [facility] ([facility]) [address] [place], [address], 02/01/2025 14:11:17 01/28/20 25 02/01/2025 FOOD ALLER GY PROFI LE W/REF THANIA H646-WqV shrimp 0.18 kU/L class0 /I abnormal Not Available [facility] ([facility]) [address] [facility], [place], [address], 02/01/2025 14:11:17 01/28/20 25 02/01/2025 FOOD ALLER GY PROFI LE W/REF THANIA D672-DdP walnut <0.10 kU/L class0 Not Available [facility] ([facility]) [address] [facility], [place], [address], 02/01/2025 14:11:17 01/28/20 25 02/01/2025 FOOD ALLER GY PROFI LE W/REF THANIA G409-DiS codfish <0.10 Not Available [facility] ([facility]) [address] [facility], [place], [address], 02/01/2025 14:11:17 01/28/20 25 02/01/2025 FOOD ALLER GY PROFI LE W/REF THANIA Z291-FfQ scallop <0.10 Not Available [facility] ([facility]) [address] [place], [address], 02/01/2025 14:11:17 01/28/20 25 02/01/2025 FOOD ALLER GY PROFI LE W/REF THANIA O459-McN wheat <0.10 Not Available [facility] ([facility]) [address] [place], [address], 02/01/2025 14:11:17 01/28/20 25 02/01/2025 FOOD ALLER GY PROFI LE W/REF THANIA C496-GwZ corn <0.10 Not Available [facility] ([facility]) [address] [place], [address], 02/01/2025 14:11:17 01/28/20 25 02/01/2025 FOOD ALLER GY PROFI LE W/REF THANIA N762-UaN sesame seed <0.10 Not Available [facility]) [address] [place], [address], 02/01/2025 14:11:17 01/28/20 25 01/28/2025 VITAM IN B12 AND FOLAT E vitamin B12 488 pg/mL 232-12 45 Not Available [facility] ([facility]) [address] [facility], [place], [address], 02/01/2025 14:11:18 01/28/20 25 01/28/2025 VITAM IN B12 AND FOLAT E folate (folic acid), serum 6.4 NG/mL >3.0 A serum folat e michael ntrat ion of less than 3.1 ng/mL is consi dered to repre sent clini gale defic iency . Not Available [facility] ([facility]) [address] [facility], [place], [address], 02/01/2025 14:11:18 01/28/20 25 01/28/2025 HEMOG LOBIN A1C hemoglobin A1C 5.2 % 4.8-5. 6 Predi abete s: 5.7 - 6.4 Diabe omid: >6.4 Glyce sergio contr ol for adult s with diabe omid: <7.0 Not Available [facility] ([facility]) [address] [facility], [place], [address], 02/01/2025 14:11:18 01/28/20 25 01/28/2025 INSUL IN insulin 13.1 uIU/m L 2.6-24 .9 Not Available [facility] ([facility]) [address] [facility], [place], [address], 02/01/2025 14:11:19 01/28/20 25 01/28/2025 CBC WITH DIFFE RENTI AL/PL ATELE T WBC 6.7 x10e3 /uL 3.4-10 .8 Not Available [facility] ([facility]) [address] [place], [address], 02/01/2025 14:11:20 01/28/20 25 01/28/2025 CBC WITH DIFFE RENTI AL/PL ATELE T RBC 4.83 x10e6 /uL 3.77-5 .28 Not Available [facility] ([facility]) [address] [facility], [place], [address], 02/01/2025 14:11:20 01/28/20 25 01/28/2025 CBC WITH DIFFE RENTI AL/PL ATELE T hemoglobin 14.2 g/dL 11.1-1 5.9 Not Available [facility] ([facility]) [address] [facility], [place], [address], 02/01/2025 14:11:20 01/28/20 25 01/28/2025 CBC WITH DIFFE RENTI AL/PL ATELE T hematocrit 43.7 % 34.0-4 6.6 Not Available [facility] ([facility]) [address] [facility], [place], [address], 02/01/2025 14:11:20 01/28/20 25 01/28/2025 CBC WITH DIFFE RENTI AL/PL ATELE T MCV 91 fL 79-97 Not Available [facility] ([facility]) [address] [place], [address], 02/01/2025 14:11:20 01/28/20 25 01/28/2025 CBC WITH DIFFE RENTI AL/PL ATELE T MCH 29.4 pg 26.6-3 3.0 Not Available [facility] ([facility]) [address] [place], [address], 02/01/2025 14:11:20 01/28/20 25 01/28/2025 CBC WITH DIFFE RENTI AL/PL ATELE T MCHC 32.5 g/dL 31.5-3 5.7 Not Available [facility] ([facility]) [address] [place], [address], 02/01/2025 14:11:20 01/28/20 25 01/28/2025 CBC WITH DIFFE RENTI AL/PL ATELE T RDW 12.4 % 11.7-1 5.4 Not Available [facility] ([facility]) [address] [facility], [place], [address], 02/01/2025 14:11:20 01/28/20 25 01/28/2025 CBC WITH DIFFE RENTI AL/PL ATELE T platelets 329 x10e3 /uL 150-45 0 Not Available [facility] ([facility]) [address] [facility], [place], [address], 02/01/2025 14:11:20 01/28/20 25 01/28/2025 CBC WITH DIFFE RENTI AL/PL ATELE T neutrophils 63 % notest ab. Not Available [facility] ([facility]) [address] [facility], [place], [address], 02/01/2025 14:11:20 01/28/20 25 01/28/2025 CBC WITH DIFFE RENTI AL/PL ATELE T lymphs 31 % notest ab. Not Available [facility] ([facility]) [address] [facility], [place], [address], 02/01/2025 14:11:20 01/28/20 25 01/28/2025 CBC WITH DIFFE RENTI AL/PL ATELE T monocytes 5 % notest ab. Not Available [facility] ([facility]) [address] [facility], [place], [address], 02/01/2025 14:11:20 01/28/20 25 01/28/2025 CBC WITH DIFFE RENTI AL/PL ATELE T eos 1 % notest ab. Not Available [facility] ([facility]) [address] [facility], [place], [address], 02/01/2025 14:11:20 01/28/20 25 01/28/2025 CBC WITH DIFFE RENTI AL/PL ATELE T basos 0 % notest ab. Not Available [facility] ([facility]) [address] [facility], [place], [address], 02/01/2025 14:11:20 01/28/20 25 01/28/2025 CBC WITH DIFFE RENTI AL/PL ATELE T neutrophils (absolute) 4.1 x10e3 /uL 1.4-7. 0 Not Available [facility] ([facility]) [address] [facility], [place], [address], 02/01/2025 14:11:20 01/28/20 25 01/28/2025 CBC WITH DIFFE RENTI AL/PL ATELE T lymphs (absolute) 2.1 x10e3 /uL 0.7-3. 1 Not Available [facility] ([facility]) [address] [facility], [place], [address], 02/01/2025 14:11:20 01/28/20 25 01/28/2025 CBC WITH DIFFE RENTI AL/PL ATELE T monocytes(ab solute) 0.4 x10e3 /uL 0.1-0. 9 Not Available [facility] ([facility]) [address] [facility], [place], [address], 02/01/2025 14:11:20 01/28/20 25 01/28/2025 CBC WITH DIFFE RENTI AL/PL ATELE T eos (absolute) 0.1 x10e3 /uL 0.0-0. 4 Not Available [facility] ([facility]) [address] [place], [address], 02/01/2025 14:11:20 01/28/20 25 01/28/2025 CBC WITH DIFFE RENTI AL/PL ATELE T baso (absolute) 0.0 x10e3 /uL 0.0-0. 2 Not Available [facility] ([facility]) [address] [place], [address], 02/01/2025 14:11:20 01/28/20 25 01/28/2025 CBC WITH DIFFE RENTI AL/PL ATELE T immature granulocytes 0 % notest ab. Not Available [facility] ([facility]) [address] [facility], [place], [address], 02/01/2025 14:11:20 01/28/20 25 01/28/2025 CBC WITH DIFFE RENTI AL/PL ATELE T immature grans (abs) 0.0 x10e3 /uL 0.0-0. 1 Not Available [facility] ([facility]) [address] [facility], [place], [address], 02/01/2025 14:11:20 01/28/20 25 01/28/2025 IVETTE+L IPASE amylase 96 U/L 31-110 Not Available [facility] ([facility]) [address] [facility], [place], [address], 02/01/2025 14:11:20 01/28/20 25 01/28/2025 IVETTE+L IPASE lipase 22 U/L 14-72 Not Available [facility] ([facility]) [address] [facility], [place], [address], 02/01/2025 14:11:20 01/28/20 25 01/28/2025 VITAM IN D, 25-HY DROXY vitamin D, 25-hydroxy 23.6 NG/mL 30.0-1 00.0 below low normal Vitam [...] Medic ine). 2010. Dieta ry refer ence adriana es for calci um and D. Yocasta tolentino [place]: The [facility] Press . 2. Albertina SCHUMACHER, Abdiaziz ey [place], Bridgette off-F laura i WILDE, et al. Evalu ation , treat ment, and preve ntion of vitam in D defic iency : an Endoc rine Socie ty clini gale pract ice guide line. JCEM. 2010; 96(7) :1911 -30. Not Available [facility] ([facility]) [address] [facility], [place], [address], 02/01/2025 14:11:21 Result Notes None recorded. Problems Name Problem SNOMED Code Status Onset Date Resolution Date Notes Provider Name and Address Organization Details Recorded Time Todd huang 92499915 Completed 01/09/2017 Kaushik [place], [place] - [facility] 7 14:40:52 Headache 86972610 Completed 01/09/2017 [place] [facility] 7 14:40:40 Obesity 185990075 Completed 02/07/2017 Celeste Claire APN, PLATE CORRECTOR-C Attn: Mireya lopes,[address] [facility], [place], [address], [place] - [facility] 2 16:18:54 Low back pain 694892975 Completed 01/09/2017 [place] [facility] 7 14:40:43 Vitamin D deficienc y 62294795 Active Uraiwan Hompluem sofia, [place] - [facility] 6 12:07:09 Overweigh t 115453040 Completed 01/09/2017 [place] [facility] 7 14:40:46 Myopia 49075674 Completed 01/09/2017 [place] [facility] 7 14:40:55 Upper respirato ry infection 14162670 Completed 01/09/2017 [place] [facility] 7 14:40:49 Mild intermitt ent asthma 324628952 Active Uraiwan Hompluem null, [place] - [facility] 6 12:07:09 Impacted cerumen 24345853 Completed 01/09/2017 Kaushik [place], [place] - [facility] 7 14:40:36 Hand foot and mouth disease 436687504 Completed 01/09/2017 Kaushik black, [facility] 7 14:40:39 History of asthma 756775707 Active 2018 Larry black, [place] - [facility] 9 10:22:33 Unintenti onal weight gain 009296543883 104 Active 2021 Celeste Claire APN, PLATE CORRECTOR-C Attn: Mireya lopes,[address] [facility], [place], [address], [facility] 2 09:39:27 Obesity 959649391 Active 2021 Celeste Claire APN, PLATE CORRECTOR-C Attn: Mireya lopes,[address] [facility], [place], [address], [facility] 2 16:18:53 Posterior rhinorrhe a 86170155 Active 2021 Celeste Claire APN, PLATE CORRECTOR-C Attn: Mireya lopes,[address] [facility], [place], [address], [facility] - [facility] 2 17:24:16 Dysfuncti on of eustachia n tube 87462382 Active 2021 Celeste Claire APN PLATE CORRECTOR-C Attn: Mireya lopes,[address] [facility], [place], [address], [facility] - SI 2 14:16:13 Sciatica 10745340 Active 2022 Celeste Claire APN, PLATE CORRECTOR-C Attn: Mireya lopes,[address] [facility], [place], [address], [facility] - [facility] 3 15:00:27 Problem Notes None recorded. Procedures Surgical History Date Name Laterality Status Provider Name and Address Organization Details Recorded Time 7 Nebulizer tx completed Howard Webster [facility] 05/23/2016 17:58:02 7 Nebulizer tx completed Howard Webster [place] - [facility] 05/22/2016 17:49:08 6 Cerumen Removal completed Howard Webster [place] - [facility] 03/22/2016 14:35:02 Imaging Results None recorded. Procedure Notes None recorded. Medical Equipment None Reported. Allergies No known drug allergies Medications Name Sig Start Date Stop Date Status Note LastModified by Organization Details LastModified Time Singulair 10 mg tablet Take 1 tablet every day by oral route. 11/12 completed Not Available Not Available Not Available cetirizine 5 mg-pseudoep hedrine ER 120 mg tablet,exte nded release,12h r TAKE 1 TABLET BY MOUTH EVERY 12 HOURS 03/08 completed Not Available Not Available Not Available [...] Available Not Available prednisone 20 mg tablet TAKE 2 TABLETS BY MOUTH DAILY FOR 5 DAYS active Not Available Not Available No t Available Debrox 6.5 % ear drops INSTILL [...] completed Not Available Not Available Not Available hydroxyzine HCl 25 mg tablet TAKE 1 TABLET BY MOUTH TWICE DAILY NEEDED FOR SEVERE ANXIETY active Not Available Not Available No t Available mupirocin 2 % topical ointment APPLY [...] completed Not Available Not Available Not Available methylpredn isolone 4 mg tablets in a dose pack FOLLOW PACKAGE DIRECTION S 03/08 completed Not Available Not Available Not Available [...] mg tablet TAKE 1 TABLET BY MOUTH TWICE DAILY active Not Available Not Available No t Available neomycin-po lymyxin-hyd rocort 3.5 mg-10,000 unit/mL-1 % ear drops,susp INSTILL 4 DROPS INTO AFFECTED EAR(S) BY OTIC ROUTE 3 TIMES PER DAY x 7 days 2024 active Not Available Not Available Not Avai lable cyclobenzap rine 5 mg tablet TK 1 T PO TID PRN 04/01 completed Not Available Not Available Not Available ciprofloxac in 0.3 %-dexametha sone 0.1 % ear drops,suspe nsion INSTILL ONE DROP IN EACH EAR EVERY 12 HOURS X 7 DAYS 05/05 completed Not Available Not Available Not Available Lexapro 5 mg tablet Take 1 tablet every day by oral route. 2024 active Not Available Not Available Not Avai lable cholecalcif luis (vitamin D3) 1,250 mcg (50,000 [...] weight Respiratory rate Body temperature Oxygen saturation Heart rate Systolic And Diastolic Provider Name and Address Organization Details Last Updated DateTime 5 160.02 cm 34 kg/m2 74564.7 4 g 16 /min 98 [degF] 98 % 72 /min 124/84 mm[Hg] BRIANDA Murrieta [place] - [facility] 5 16:23:54 Social History Question Answer Notes LastModified by Organizat ion Details LastModified Time Tobacco Smoking Status Never Smoker Evy Ingram MA [facility], [place] - [facility] 03/23/2014 14:51:40 Do You Have An Advance Directive? No Information not available 06/10/2019 Animal Exposure? No [email or web address] Informa tion not available 12/30/2015 Do You Wear A Helmet When Biking? No [email or web address] Information not available 03/23/2014 Are You Blind Or Do You Have Difficulty Seeing? No [email or web address] Information not available 05/27/2020 What Is Your Level Of Caffeine Consumption? Occasional [email or web address] Information not available 05/27/2020 How Much Tobacco Do You Chew? None Information not available 06/10/2019 What Type Of Electrician Machine Shop Do You Use? None [email or web address] Information not available 03/23/2014 In The 14 [...] Do You Have Serious Difficulty Hearing? No [email or web address] Information not available 05/27/2020 What Type Of Diet Are You Following? REGULAR Information not available 03/08/2025 Which Illicit Or Recreational Drugs Have You Used? Denied Information not available 06/10/2019 Education 12 [employer] [place] Information not available 06/10/2019 Have There Been Any Changes To Your Family Or Social Situation? No [email or web address] Information not available 03/23/2014 What Is The Fluoride Status Of Your Home? Fluoridated [email or web address] Information not available 12/30/2015 Are There Any Guns Present In Your Home? No [email or web address] Information not available 03/23/2014 Hard Of Hearing Or Deaf In One Or Both Ears? No Information not available 06/10/2019 What Is Your Home Situation? Both Parents Parents, 2 Brothers [email or web address] Information not available 07/21/2014 Do You Use Insect Repellent Routinely? Yes [email or web address] Information not available 03/23/2014 Legally Blind In One Or Both Eyes? No Information not available 06/10/2019 Marital Status Single Informatio n not available 06/10/2019 What Was The Date Of Your Most Recent Tobacco Screening? 03/08/2025 Information not available 03/08/2025 What Is Your Parents' Marital Status? [email or web address] Information not available 03/23/2014 Performs Monthly Self-breast Exam? No Information not available 06/10/2019 Pool Exposure No [email or web address] Informatio n not available 03/23/2014 What Is Your Relationship Status? Single [email or web address] Information not available 05/27/2020 What Is The Name Of Your School? [employer] Information not available 12/15/2020 Do You Use Your Seat Belt Or Car Seat Routinely? Yes [email or web address] Information not available 05/27/2020 Seat Belts Used Routinely Yes Information not available 06/10/2019 Are You Sexually Active? No [email or web address] Information not available 05/27/2020 Do You Have Any Siblings? 2 Brothers [email or web address] Information not available 03/23/2014 Smoke Alarm In Home Yes Information not available 06/10/2019 Do You Have Smoke And Carbon Monoxide Detectors In Your Home? Yes [email or web address] Information not available 03/23/2014 Are You Passively Exposed To Smoke? Yes Mom And Dad Smoke Outside [email or web address] Information not available 03/23/2014 How Much Tobacco Do You Smoke? No Information not available 06/10/2019 What Types Of Sporting Activities Do You Participate In? None [email or web address] Information not available 03/23/2014 General Stress Level Medium Information not available 06/10/2019 Do You Use Sunscreen Routinely? Yes [email or web address] Information not available 03/23/2014 Has Tobacco Cessation Counseling Been Provided? No [email or web address] Information not available 05/25/2021 Year In School 12 [email or web address] Informati on not available 03/28/2018 Sex: Female Functional Status Question Answer Note LastModified by Organizat ion Details LastModified Time Do you use any illicit or recreational drugs? No Information not available 05/27/2020 Do you or have you ever used any other forms of tobacco or nicotine? No Information not available 06/15/2021 What is your level of alcohol consumption? None [email or web address] Information not available 11/12/2018 Do you or have you ever used smokeless tobacco? Never used smokeless tobacco Information not available 06/10/2019 Are you currently employed? Yes Information not available 06/04/2023 Are you able to care for yourself independently? Yes [email or web address] Information not available 05/27/2020 What is your occupation? [email or web address] Information not available 03/08/2025 Do you or have you ever used e-cigarettes or vape? Never used electronic cigarettes Information not available 06/10/2019 What is your exercise level? None Information not available 11/28/2023 Mental Status Question Answer Note LastModified by Organization D etails LastModified Time Do you feel stressed (tense, restless, nervous, or anxious, or unable to sleep at night)? [id number] Information not available 05/05/2024 Are you or have you been involved with bullying? No [email or web address] Information not available 03/23/2014 Family History Relationship [...] N Anemia N Constipation N Heart Attack (CA) N Anxiety Disorder N Diabetes N Muscle, [...] Statement/Question Response Flow Light Date of LMP 02/21/2025 Frequency of Cycle (Q days) 28 Menses [...] virus, quadrivalent, PF 6 completed Not Available [facility] 04/11/2019 02:32:33 meningococcal MCV4, unspecified formulation 4 completed Not Available [facility] 11/25/2022 06:58:28 IPV 1 completed Celeste Claire APN, PLATE CORRECTOR-C Attn: Accounting,204 1 [place], [place], [address] [place] [address], [facility] 06/04/2023 11:00:15 pneumococcal conjugate PCV 7 1 completed Celeste Claire APN, PLATE CORRECTOR-C Attn: Accounting,204 1 [place], [place], [address] [place] [address], [facility] [place] 06/04/2023 11:00:15 Tdap 4 completed Celeste Claire APN, PLATE CORRECTOR-C Attn: Accounting,204 1 [place], [place], [address] [place] [address], [facility] [place] 06/04/2023 11:00:15 Novel [id number], all formulations 0 completed Celeste Claire APN, PLATE CORRECTOR-C Attn: Accounting,204 1 [facility], [place], [place], [address] [place] [address], [facility] - [facility] 06/04/2023 11:00:15 influenza, split (incl. purified surface antigen) 0 completed Celeste Claire, DIRECTOR REACTOR PROJECTS, PLATE CORRECTOR-C Attn: Accounting,204 1 [facility], [place], [place], [address] [place] [address], [facility] - [place] 06/04/2023 11:00:15 Td (adult), 5 Lf tetanus toxoid, preservative free, adsorbed 2 completed Celeste Claier, DIRECTOR REACTOR PROJECTS, PLATE CORRECTOR-C Attn: Accounting,204 1 [facility], [place], [place], [address] [place] [address], [facility] 06/04/2023 11:00:16 Hep A, pediatric, unspecified formulation 0 completed Celeste Claire, DIRECTOR REACTOR PROJECTS, PLATE CORRECTOR-C Attn: Accounting,204 1 [facility], [place], [place], [address] [place] [address], [facility] 06/04/2023 11:00:16 Hep A, pediatric, unspecified formulation 9 completed Celeste Claire, DIRECTOR REACTOR PROJECTS, PLATE CORRECTOR-C Attn: Accounting,204 1 [facility], [place], [place], [address] [place] [address], [facility] - [place] 06/04/2023 11:00:16 meningococcal MCV4P 4 completed Celeste Claire, DIRECTOR REACTOR PROJECTS, PLATE CORRECTOR-C Attn: Accounting,204 1 [facility], [place], [place], [address] [place] [address], [facility] 06/04/2023 11:00:16 Influenza, split virus, quadrivalent, PF 4 completed Celeste Claire, DIRECTOR REACTOR PROJECTS, PLATE CORRECTOR-C Attn: Accounting,204 1 [facility], [place], [place], [address] [place] [address], [facility] 06/04/2023 11:00:16 Meningococcal MCV4O 7 completed Not Available [facility] 04/11/2019 02:33:26 HPV, quadrivalent 5 completed Not Available [facility] 04/11/2019 02:46:38 COVID-19, mRNA, LNP-S, PF, nancy-sucrose, 30 mcg/0.3 mL 4 completed Not Available [facility] 03/08/2025 11:15:12 Influenza, split virus, quadrivalent, PF 7 completed Not Available [facility] 04/11/2019 02:49:07 meningococcal B, OMV 7 completed Not Available [facility] 04/11/2019 02:34:49 Hib, unspecified formulation 2 completed Not Available [facility] 11/25/2022 06:58:28 varicella 9 completed Not Available [facility] 11/25/2022 06:58:28 Hep B, adolescent or pediatric 1 completed Not Available [facility] 11/25/2022 06:58:28 Hep A, ped/adol, 2 dose 0 completed Not Available [facility] 11/25/2022 06:58:28 DTaP 1 completed Not Available [facility] 11/25/2022 06:58:28 pneumococcal conjugate PCV 7 2 completed Not Available [facility] 11/25/2022 06:58:28 influenza, unspecified formulation 0 completed Not Available [facility] 11/25/2022 06:58:28 DTaP 1 completed Not Available [facility] 11/25/2022 06:58:28 MMR 2 completed Not Available [facility] 11/25/2022 06:58:28 DTaP 1 completed Not Available [facility] 11/25/2022 06:58:28 pneumococcal conjugate PCV 7 1 completed Not Available [facility] 11/25/2022 06:58:28 IPV 1 completed Not Available [facility] 11/25/2022 06:58:28 Hep A, ped/adol, 2 dose 9 completed Not Available [facility] 11/25/2022 06:58:28 Hep B, adolescent or pediatric 1 completed Not Available [facility] 11/25/2022 06:58:28 DTaP 2 completed Not Available [facility] 11/25/2022 06:58:28 Hib, unspecified formulation 1 completed Not Available [facility] 11/25/2022 06:58:28 IPV 1 completed Not Available [facility] 11/25/2022 06:58:28 IPV 5 completed Not Available [facility] 11/25/2022 06:58:28 varicella 2 completed Not Available [facility] 11/25/2022 06:58:28 Hib, unspecified formulation 1 completed Not Available [facility] 11/25/2022 06:58:27 DTaP 5 completed Not Available [facility] 11/25/2022 06:58:28 Hib, unspecified formulation 1 completed Not Available [facility] 11/25/2022 06:58:28 MMR 5 completed Not Available [facility] 11/25/2022 06:58:28 Hep B, adolescent or pediatric 1 completed Not Available [facility] 11/25/2022 06:58:28 meningococcal B, OMV 9 completed Not Available [facility] 04/11/2019 02:38:04 Tdap 5 completed [place], [place] 05/05/2024 16:24:13 HPV, quadrivalent 4 completed Celeste Claire APN, PLATE CORRECTOR-C Attn: Accounting,204 1 [facility], [place], [address], [facility] 06/04/2023 11:00:16 Tdap 4 completed Not Available [facility] 04/11/2019 02:39:15 HPV, quadrivalent 4 completed Not Available [facility] 04/11/2019 02:48:34 Past Encounters Encounter ID Performer Location Encounter Start Date Encounter Closed Date Diagnosis/Indication Diagnosis SNOMED-CT Code Diagnosis ICD10 Code Diagnosis IMO Codes Diagnosis Note [id number] Ángela vaughn, MD [facility] (Adult Med) [address] [place] [address] 01/26/2025 16:16:05 02/11/2025 13:49:23 Mild intermittent asthma 909635407 J45.20 dwp prn albuterol usereviewe d AAP Hypoglycemia 116856556 E 16.2 51746 pt feels her glucose drops too low, will get labsadvise d diet changes Vitamin D deficiency 347 88267 E55.9 cont high dose weekly replacemen t Unintentio nal weight gain [id number] 56757 R63.5 [id number] dwp will check labs, keep log of diet, work on cutting out junk food and sugars Abdominal bloating 09419 9008 R14.0 26136 c/o gas pain for several days, ok now;dwp diet changes Generalize d anxiety disorder 90609493 F41.1 817750 dwp med options, pt is not wanting a daily med, will try coping techniques declined referral to as well Numbness a nd tingling sensation of skin [id number] 02 R20.0 R20.2 796414 neuro exam wnl,will check lab Health Concerns Section Related Observation LastModified by Organization Detai ls LastModified Time None Recorded Concern Status LastModified by Organization Details LastModified Time None Recorded Payers Encounter Date Sequence Insurance Name Policy Number Policy Westfall Covered Member ID Westfall Member ID Guarantor Name 01/26/2025 1 [facility] (MEDICAID HMO) [id number] [facility] [id number] [facility] Notes Date Note Type Note Provider Name and Address Organization Details Recorded Time 01/26/2025 text/html unexplained weight gain- barely eats fast food.pt states she gets gassy and bloated when drinking milk- has never has this issue beforeafter eating fatty food she feels like her blood sugar spikes and she gets sick feeling and fingertips feel numb.wants thyroid checked Celeste Claire APN, PLATE CORRECTOR-C Attn: Accounting,204 1 [facility] [place] [place], [place], [address], [facility] 02/10/2025 09:53:54 OBGyn Episode No OBEpisode recorded.
--- OUTSIDE RECORDS SUMMARY | 2025-03-19 11:30 | XMS_ITS | Clinical Summary ---
Author Organization [facility] Address [address] [place] [address] Care Team Providers Care Appliquer Name Role Phone Celeste Claire NP Primary Care Provider [phone] Allergies No known active allergies Medications ergocalciferol [...] Encounters Date Type Department Care Team Description 02/02/2025 1:59 PM EDUCATIONAL MANAGER - 02/02/2025 4:47 PM [facility] Emergency [facility] Emergency Department [address] [place] [address] Chan Ayala MD Paresthesia (Primary Dx) Discharge Disposition: Discharge to home or self [...] making you feel afraid or unsafe? Denies 02/02/2025 Comments No Sex and Gender Information Value Date Recorded Sex Assigned at Not on file Legal Sex Female 11:22 AM EDUCATIONAL MANAGER Gender Identity Not on file Sexual Orientation Not on file Last Filed Vital Signs Vital Sign Reading Time Taken Comments Blood Pressure 130/89 02/02/2025 2:31 PM EDUCATIONAL MANAGER Pulse 102 02/02/2025 2:31 PM EDUCATIONAL MANAGER Temperature 37.3 C (99.1 F) 02/02/2025 2:31 PM EDUCATIONAL MANAGER Respiratory Rate 18 02/02/2025 2:31 PM EDUCATIONAL MANAGER Oxygen Saturation 100% 02/02/2025 2:31 PM EDUCATIONAL MANAGER Inhaled Oxygen Concentration - - Weight 86.2 kg (190 lb) 02/02/2025 2:31 PM EDUCATIONAL MANAGER Height 160 cm (5' 3) 02/02/2025 2:31 PM EDUCATIONAL MANAGER Body Mass Index 33.66 02/02/2025 2:31 PM EDUCATIONAL MANAGER Plan of Treatment Health Maintenance Due Date Last Done Comments Cervical Cancer Screening 2000 Depression Screening 2000 Hepatitis C Screening 2000 Pneumococcal vaccine <65 (1 of 1 - PPSV23, PCV20, or PCV21) 2006 10/28/2001, 01/17/2001, 2000 Regular Well Visit/Exam 18-64 2018 Influenza Vaccine (#1) 11/23/2024201 7, 12/30/2015, 01/20/2014, Additional history exists DTaP/Tdap/Td Vaccine (9 - Td or Tdap) 05/05/2034 05/05/2024, 03/23/2014, 09/03/2013, Additional history exists Hepatitis B Screening Completed 01/18/2001 , 2000, 2000 Varicella Vaccines Completed 10/22/2008, 10/28/2001 HPV Vaccines Completed 05/25/2014, 02/24, 09/03/2013 Procedures Procedure Name Priority Date/Time Associated Diagnosis Comments POCT HCG, URINE Routine 02/02/2025 4:24 PM EDUCATIONAL MANAGER XR CHEST PA LATERAL 2 VIEWS ED 02/02/2025 3:01 PM EDUCATIONAL MANAGER T4, FREE STAT 02/02/2025 2:44 PM EDUCATIONAL MANAGER TSH STAT 02/02/2025 2:44 PM EDUCATIONAL MANAGER D-DIMER, QUANTITATIVE Add-On 02/02/2025 2:44 PM EDUCATIONAL MANAGER EGFR STAT 02/02/2025 2:44 PM EDUCATIONAL MANAGER TROPONIN T HIGH-SENSITIVITY SERIES (BASELINE, 2HR, 4HR, 6HR) STAT 02/02/2025 2:44 PM EDUCATIONAL MANAGER CBC WITHOUT DIFFERENTIAL STAT 02/02/2025 2:44 PM EDUCATIONAL MANAGER BASIC METABOLIC PANEL STAT 02/02/2025 2:44 PM EDUCATIONAL MANAGER ECG 12-LEAD STAT 02/02/2025 2:37 PM EDUCATIONAL MANAGER from Last 3 Months Results * POCT hCG, urine (02/02/2025 4:24 PM EDUCATIONAL MANAGER) HCG, ur, POC Negative Negative Lot Number [id number] QC Backgroud Clear Acceptable QC Control Line Acceptable Urine 02/02/2025 4:24 PM EDUCATIONAL MANAGER us Chan Ayala MD POINT OF CARE TEST ORDERAB LES Final Result * XR Chest Pa Lateral 2 Views (02/02/2025 3:01 PM EDUCATIONAL MANAGER) Anatomical Region Laterality Modality Body, Chest N/A Computed Radiogr aphy 02/02/2025 3:25 PM EDUCATIONAL MANAGER Impressions 02/02/2025 3:25 PM EDUCATIONAL MANAGER No radiographic evidence of acute cardiopulmonary disease. Electronically signed by: Ria Peng M.D. Narrative 02/02/2025 3:25 PM EDUCATIONAL MANAGER EXAMINATION: XR CHEST PA LATERAL 2 VIEWS ORDERING HEALTHCARE PROVIDER: CHAN AYALA HISTORY: Sudden chest pain radiating to the back. Shortness of breath and dizziness. Hand and feet numbness. TECHNIQUE: Frontal and lateral radiographs of the chest. COMPARISON: 05/16/2020. FINDINGS: LUNGS/PLEURA: There is no airspace consolidation or pleural effusion. HEART/MEDIASTINUM: The cardiomediastinal silhouette and pulmonary vasculature are normal. HARDWARE/LINES/TUBES: None. BONES: No acute findings. OTHER: No other acute findings. Procedure Note Ria Peng MD - 02/02/2025 EXAMINATION: XR CHEST PA LATERAL 2 VIEWS ORDERING HEALTHCARE PROVIDER: CHAN AYALA HISTORY: Sudden chest pain radiating to the back. Shortness of breath and dizziness. Hand and feet numbness. TECHNIQUE: Frontal and lateral radiographs of the chest. COMPARISON: 05/16/2020. FINDINGS: LUNGS/PLEURA: There is no airspace consolidation or pleural effusion. HEART/MEDIASTINUM: The cardiomediastinal silhouette and pulmonary vasculature are normal. HARDWARE/LINES/TUBES: None. BONES: No acute findings. OTHER: No other acute findings. IMPRESSION: No radiographic evidence of acute cardiopulmonary disease. Electronically signed by: Ria Peng M.D. Chan Ayala MD IMG XR PROCEDURES Final Re sult * Troponin T high-sensitivity series (baseline, 2hr, 4hr, 6hr) (02/02/2025 2:44 PM EDUCATIONAL MANAGER) Trop T hs <6 <=14 ng/L Comment: Interpretive Data For further hscTnT resources including the diagnostic algorithm and an aid in interpretation, copy and paste this link: https://nrl.testcatalog.org/show/hsTrop Current Interpretive Data last revised 2020. Blood 02/02/2025 2:44 PM EDUCATIONAL MANAGER 02/02/2025 3:23 PM EDUCATIONAL MANAGER Chan Ayala MD LAB BLOOD ORDERABLES Final Result [facility] ([place]) 1 [facility] [place] [address] * eGFR (02/02/2025 2:44 PM EDUCATIONAL MANAGER) eGFR >90 >=60 mL/min/1. 73 m2 Comment: Interpretive Data Reference Interval Normal >/= 90 mL/min/1.73m2 Mildly decreased* 60 - 89 mL/min/1.73m2 Mildly to moderately decreased 45 - 59 mL/min/1.73m2 Moderately to severely decreased 30 - 44 mL/min/1.73m2 Severely decreased 15 - 29 mL/min/1.73m2 Kidney Failure < 15 mL/min/1.73m2 *Relative to young adult level Estimated glomerular filtration rate is determined by the 2020 CKD-EPI equation recommended by the National Kidney Foundation (A Unifying Approach to GFR Estimation: Recommendations of the NKF-ASK Task Force on Reassessing the Inclusion of Race in Diagnosing Kidney Disease, JASN 2020). The CKD-EPI equation should not be used for patients with unstable renal function and has not been validated in children and those over 70. Current interpretive data was last reviewed 2021. Blood 02/02/2025 2:44 PM EDUCATIONAL MANAGER 02/02/2025 3:23 PM EDUCATIONAL MANAGER Chan Ayala MD LAB BLOOD ORDERABLES Final Result [facility] ([place]) 1 [facility] [place] [address] * D-dimer, quantitative (02/02/2025 2:44 PM EDUCATIONAL MANAGER) D-Dimer <215 <=499 ng/mL FEU [facility] ([place]) Comment: Interpretive data FDA approved the D-dimer, in conjunction with a low or moderate pretest probability score, to exclude venous thromboembolic events (VTE) (PE and DVT) in outpatients when the D-dimer result is < 500 ng/ml FEU. Evidence supports using an age-adjusted D-dimer cut-off for outpatients older than 50 (age x 10) to improve specificity without sacrificing sensitivity. Example: age 68, VTE cut-off 680 ng/ml FEU. References; Eliana PETERSON et al. Brit Med J. 2013;346:f2492. Vick REYNA et al. Annals Int Med. 2015;163:701-11. Current interpretive data was last revised on 2019. Blood 02/02/2025 2:44 PM EDUCATIONAL MANAGER 02/02/2025 3:51 PM EDUCATIONAL MANAGER us Chan Ayala MD LAB BLOOD ORDERABLES Final Result Performing Organization Address City/[facility]/ZIP Co de Phone Number [facility] ([place]) 1 [facility] [place] [address] * CBC without differential (02/02/2025 2:44 PM EDUCATIONAL MANAGER) WBC 7.03 3.80 - 9.90 K/cumm Hgb 14.5 11.9 - 15.5 g/dL [facility] ([place]) Hct 41.4 35.6 - 45.5 % [facility] ([place]) Plt 348 150 - 400 K/cumm [facility] ([place]) MPV 10.3 9.1 - 12.3 fL [facility] ([place]) RBC 4.80 3.90 - 5.20 M/cumm [facility] ([place]) MCV 86.3 81.3 - 96.4 fL [facility] ([place]) MCH 30.2 27.1 - 33.3 pg [facility] ([place]) MCHC 35.0 32.3 - 35.7 g/dL [facility] ([place]) RDW CV 12.2 11.1 - 14.9 % [facility] ([place]) RDW SD 38.7 35.7 - 48.1 fL [facility] ([place]) NRBC abs 0.00 0.00 - 0.01 K/cumm [facility] ([place]) Blood 02/02/2025 2:44 PM EDUCATIONAL MANAGER 02/02/2025 3:23 PM EDUCATIONAL MANAGER us Chan Ayala MD LAB BLOOD ORDERABLES Final Result [facility] ([place]) 1 [facility] [place] [address] * TSH (02/02/2025 2:44 PM EDUCATIONAL MANAGER) [facility] Thyroid Stimulating Hormone 1.53 0.30 - 4.20 mcIUnit/mL Blood 02/02/2025 2:44 PM EDUCATIONAL MANAGER 02/02/2025 4:41 PM EDUCATIONAL MANAGER Chan Ayala MD LAB BLOOD ORDERABLES Final Result [facility] ([place]) [address] [place] [address] * T4, free (02/02/2025 2:44 PM EDUCATIONAL MANAGER) [facility] Free T4 1.33 0.90 - 1.70 ng/dL Blood 02/02/2025 2:44 PM EDUCATIONAL MANAGER 02/02/2025 4:41 PM EDUCATIONAL MANAGER Chan Ayala MD LAB BLOOD ORDERABLES Final Result Performing Organization Address City/[facility]/ZIP Co de Phone Number [facility] ([place]) [address] [place] [address] * Basic metabolic panel (02/02/2025 2:44 PM EDUCATIONAL MANAGER) [facility] Sodium 138 135 - 145 mmol/L Potassium, pl 3.7 3.3 - 4.9 mmol/L [facility] Chloride 103 97 - 110 mmol/L [facility] CO2 22 22 - 32 mmol/L [facility]) Anion gap 13 2 - 15 mmol/L [facility] BUN 13 6 - 25 mg/dL [facility] Creatinine 0.73 0.60 - 1.10 mg/dL [facility] Glucose 106 70 - 199 mg/dL [facility] Comment: Interpretive Data Fasting glucose >/= 126 mg/dl is diagnostic for diabetes. Fasting is defined as no caloric intake for at least 8 hours. Fasting glucose between 100 mg/dl to 125 mg/dl is diagnostic of prediabetes. In a patient with classic symptoms of hyperglycemia or hyperglycemic crisis, a random glucose >/= 200 mg/dl is diagnostic for diabetes. In the absence of unequivocal hyperglycemia, results should be confirmed by repeat testing. The classification and Diagnosis of Diabetes Diabetes Care 202; 46: S19-S40. Current interpretive data was last revised 2022. Calcium 10.3 8.5 - 10.3 mg/dL [facility] ([place]) Blood 02/02/2025 2:44 PM EDUCATIONAL MANAGER 02/02/2025 3:23 PM EDUCATIONAL MANAGER Chan Ayala MD LAB BLOOD ORDERABLES Final Result Performing Organization Address [facility] Co de Phone Number [facility] ([place]) 1 [facility] [place] [address] * ECG 12 lead (02/02/2025 2:37 PM EDUCATIONAL MANAGER) 02/02/2025 2:37 PM EDUCATIONAL MANAGER Narrative [facility] - 02/03/2025 11:19 AM EDUCATIONAL MANAGER Vent Rate: 92 bpm RR Interval: 652 msec WI Interval: 139 msec QRS Duration: 78 msec QT Interval: 327 msec QTC Interval: 376 msec P-R-T [place]: 54 - 58 - 44 degrees IMPRESSION: Baseline artifact , probable SINUS RHYTHM WITH SINUS ARRHYTHMIA NORMAL ECG Electronically Signed By: Phil Resendiz MD Chan Ayala MD ECG ORDERABLES Final Resu lt Performing Organization Address [facility] Co de Phone Number [facility] from Last 3 Months Insurance [facility] Care Teams Appliquer Relationship Specialty Start Date End Date Celeste Claire NP [address] [place] [address] PCP - General 05/16/20
--- OUTSIDE RECORDS SUMMARY | 2025-03-19 11:30 | XMS_ITS | Data Portability ---
Author Organization [facility] Address [address] [address] Care Team Providers Care Plaster Lather Name Role Phone BERRIOS, CELESTE Primary Care Provider [phone] Assessment No assessment recorded. Plan of Treatment Reminders Order Date Submit Date Provider Last Modified By Organization Details Last Modified Time Details Appointments None recorded. Lab celiac disease serology panel, serum 2024 025 [facility], [address] [place] [address], [address], 14:11:15 amylase + lipase, serum 2024 025 [facility], [address] [place] [address], [address], 5 14:11:20 food allergen panel, serum 2024 025 [facility], [address] [place] [address], [address], 5 14:11:17 TSH + free T4, serum 2024 025 [facility], [address] [place] [address], [address], 5 14:11:16 CBC w/ auto diff 2024 025 [facility], [address] [place] [address], [address], 5 14:11:20 insulin, serum 2024 025 [facility], [address] [place] [address], [place], [address], 5 14:11:19 vitamin D, 25-hydroxy, total, serum 2024 025 [facility], [address] [place] [address], [place], [address], 5 14:11:21 cobalamin and folate panel, serum 2024 025 [facility], [address] [place] [address], [place], [address], 5 14:11:18 HbA1c (hemoglobin A1c), blood 2024 025 [facility], [address] [place] [address], [place], [address], 5 14:11:19 CMP, serum or plasma 2024 025 [facility], [address] [place] [address], [place], [address], 5 14:11:17 cobalamin and folate panel, serum 2024 025 [facility], [address] [place] [address], [place], [address], 5 09:15:12 ferritin, serum or plasma 2024 025 [facility], [address] [place] [address], [place], [address], 5 09:15:16 magnesium, serum or plasma 2024 025 [facility], [address] [place] [address], [place], [address], 5 09:15:15 TSH, ultra-sensi tive, serum 2024 025 [facility], [address], [place], [address], 5 09:15:11 CMP, serum or plasma 2024 025 [facility], [address], [place], [address], 5 09:15:09 lipid panel, serum 2024 025 [facility], [address], [place], [address], 5 09:15:08 CBC 2024 025 [facility], [address], [place], [address], 5 09:15:17 HbA1c (hemoglobin A1c), blood 2024 025 [facility], [address] [facility], [facility], [place], [address], 5 09:15:13 vitamin D, 25-hydroxy, total, serum 2024 025 [facility], [address] [facility], [facility], [place], [address], 5 09:15:19 vaginal pathogens panel, JUNIOR+probe, vaginal fluid 2023 024 [facility], [address] [facility], [facility], [place], [address], 4 07:37:29 cytology report, thin prep, smear or scraping, cervical or vaginal 2023 024 [facility], [address] 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 Surgeries None recorded. Imaging US, gallbladder 2023 024 [facility], [address] [facility] , [place], [address], 4 07:53:14 Medication Orders albuterol sulfate HFA 90 mcg/actuati on aerosol inhaler 2024 025 [id number], [address], [place], [place], [id number], 16:42:58 Patient TargetsNo targets recorded. Patient Instructions Encounter Date Encounter Id Patient Instructions Last Modified By Organization Details Last Modified Time 11/28/2023 [id number] sciatica: care instructions Not available 11/28/2023 15:53:10 [...] care: none Not available 11/28/2023 15:56:21 05/05/2024 [id number] tetanus and diphtheria booster: care instructions Not [...] established with provider Not available 05/05/2024 16:20:33 01/26/2025 [id number] hypoglycemia: care instructions Not available 01/26/2025 16:42:36 Please call office if any questions or concerns. Take all medicines as prescribed and follow with all specialists as planned. 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 Unintentional weight gain Referring Physician: [facility], Encounter Date: 11/28/2023 Results Created Date Observation Date Name Description Value Unit Range Abnormal Flag Note LastModifiedBy Organization Detail LastModifiedTime 06/04/19 24 06/04/2023 LIPID PANEL cholesterol, total 150 mg/dL 100-19 9 Not Available [facility] [address] [place], [address], 06/04/2023 20:08:59 06/04/19 24 06/04/2023 LIPID PANEL triglyceride s 184 mg/dL 0-149 above high normal Not Available [facility] [address] [place], [address], 06/04/2023 20:08:59 06/04/19 24 06/04/2023 LIPID PANEL HDL cholesterol 40 mg/dL 40-999 Not Available [facility] [address] [place], [address], 06/04/2023 20:08:59 06/04/19 24 06/04/2023 LIPID PANEL VLDL cholesterol gale 37 mg/dL 5-40 Not Available [facility] [address] [place], [address], 06/04/2023 20:08:59 06/04/19 24 06/04/2023 LIPID PANEL LDL chol calc (nih) 101 mg/dL 0-99 above high normal Not Available [facility] [address] [place], [address], 06/04/2023 20:08:59 06/04/19 24 06/04/2023 COMP. METAB OLIC PANEL (14) glucose 88 mg/dL 70-99 Not Available [facility] [address] [place], [address], 06/04/2023 20:08:59 06/04/19 24 06/04/2023 COMP. METAB OLIC PANEL (14) BUN 11 mg/dL 6-20 Not Available [facility] [address] [place], [address], 06/04/2023 20:08:59 06/04/19 24 06/04/2023 COMP. METAB OLIC PANEL (14) creatinine 0.66 mg/dL 0.76-1 .27 below low normal Not Available [facility] [address] [place], [address], 06/04/2023 20:08:59 06/04/19 24 06/04/2023 COMP. METAB [...] . Not Available [facility] [address] [place], [address], 06/04/2023 20:08:59 06/04/19 24 06/04/2023 COMP. METAB OLIC PANEL (14) BUN/creatini ne ratio 16 9-23 Not Available [facility] [address] [place], [address], 06/04/2023 20:08:59 06/04/19 24 06/04/2023 COMP. METAB OLIC PANEL (14) sodium 139 mmol/ L 134-14 4 Not Available [facility] [address] [place], [address], 06/04/2023 20:08:59 06/04/19 24 06/04/2023 COMP. METAB OLIC PANEL (14) potassium 4.1 mmol/ L 3.5-5. 2 Not Available [facility] [address] [place], [address], 06/04/2023 20:08:59 06/04/19 24 06/04/2023 COMP. METAB OLIC PANEL (14) chloride 101 mmol/ L 96-106 Not Available [facility] [address] [place] [address], [address], 06/04/2023 20:08:59 06/04/19 24 06/04/2023 COMP. METAB OLIC PANEL (14) carbon dioxide, total 25 mmol/ L 20-29 Not Available [facility] [address] [place] [address], [address], 06/04/2023 20:08:59 06/04/19 24 06/04/2023 COMP. METAB OLIC PANEL (14) calcium 9.6 mg/dL 8.7-10 .2 Not Available [facility] [address] [place] [address], [address], 06/04/2023 20:08:59 06/04/19 24 06/04/2023 COMP. METAB OLIC PANEL (14) protein, total 7.1 g/dL 6.0-8. 5 Not Available [facility] [address] [place], [address], 06/04/2023 20:08:59 06/04/19 24 06/04/2023 COMP. METAB OLIC PANEL (14) albumin 4.7 g/dL 4.0-5. 0 Not Available [facility] [address] [place] [address], [address], 06/04/2023 20:08:59 06/04/19 24 06/04/2023 COMP. METAB OLIC PANEL (14) globulin, total 2.4 g/dL 1.5-4. 5 Not Available [facility] [address] [place] [address], [address], 06/04/2023 20:08:59 06/04/19 24 06/04/2023 COMP. METAB OLIC PANEL (14) A/G ratio 2.0 1.2-2. 2 Not Available [facility] [address] [place] [address], [address], 06/04/2023 20:08:59 06/04/19 24 06/04/2023 COMP. METAB OLIC PANEL (14) bilirubin, total 0.6 mg/dL 0.0-1. 2 Not Available [facility] [address] [place] [address], [address], 06/04/2023 20:08:59 06/04/19 24 06/04/2023 COMP. METAB OLIC PANEL (14) alkaline phosphatase 76 IU/L 44-121 Not Available [facility] [address] [place] [address], [address], 06/04/2023 20:08:59 06/04/19 24 06/04/2023 COMP. METAB OLIC PANEL (14) AST (SGOT) 14 IU/L 0-40 Not Available [facility] [address] [place] [address], [address], 06/04/2023 20:08:59 06/04/19 24 06/04/2023 COMP. METAB OLIC PANEL (14) ALT (SGPT) 13 IU/L 0-32 Not Available [facility] [address] [place] [address], [address], 06/04/2023 20:08:59 06/04/19 24 06/04/2023 CBC, NO DIFFE RENTI AL/PL ATELE T WBC 9.7 x10e3 /uL 3.4-10 .8 Not Available [facility] [address] [place], [address], 06/04/2023 20:09:00 06/04/1906/04/2023 CBC, NO DIFFE RENTI AL/PL ATELE T RBC 4.98 x10e6 /uL 3.77-5 .28 Not Available [facility] [address] [place], [address], 06/04/2023 20:09:00 06/04/1906/04/2023 CBC, NO DIFFE RENTI AL/PL ATELE T hemoglobin 14.9 g/dL 11.1-1 5.9 Not Available [facility] [address] [place], [address], 06/04/2023 20:09:00 06/04/1906/04/2023 CBC, NO DIFFE RENTI AL/PL ATELE T hematocrit 46.1 % 34.0-4 6.6 Not Available [facility] [address] [place], [address], 06/04/2023 20:09:00 06/04/1906/04/2023 CBC, NO DIFFE RENTI AL/PL ATELE T MCV 93 fL 79-97 Not Available [facility] [address] [place], [address], 06/04/2023 20:09:00 06/04/1906/04/2023 CBC, NO DIFFE RENTI AL/PL ATELE T MCH 29.9 pg 26.6-3 3.0 Not Available [facility] [address] [place], [address], 06/04/2023 20:09:00 06/04/1906/04/2023 CBC, NO DIFFE RENTI AL/PL ATELE T MCHC 32.3 g/dL 31.5-3 5.7 Not Available [facility] [address] [place], [address], 06/04/2023 20:09:00 06/04/19 24 06/04/2023 CBC, NO DIFFE RENTI AL/PL ATELE T RDW 13.0 % 11.5-1 4.5 Not Available [facility] [address] [place], [address], 06/04/2023 20:09:00 06/04/19 24 06/04/2023 CBC, NO DIFFE RENTI AL/PL ATELE T NRBC 0 % 0-0 Not Available [facility] [address] [place], [address], 06/04/2023 20:09:00 06/04/19 24 06/05/2023 TSH RFX ON ABNOR MAL TO FREE T4 TSH 2.140 uIU/m L 0.450- 4.500 Not Available [facility] ([facility]) [address] [place], [address], 06/05/2023 06:17:39 06/04/19 24 06/05/2023 HEMOG LOBIN A1C hemoglobin A1C 5.1 % 4.8-5. 6 Predi abete s: 5.7 - 6.4 Diabe omid: >6.4 Glyce sergio contr ol for adult s with diabe omid: <7.0 Not Available [facility] ([facility]) [address] [facility], [place], [address], 06/05/2023 06:17:40 06/04/19 24 06/05/2023 VITAM IN D, 25-HY DROXY vitamin D, 25-hydroxy 20.2 NG/mL 30.0-1 00.0 below low normal Vitam in D defic iency has been defin ed by the Insti tute of Medic ine and an Endoc wili [place] pract ice guide line as a level of serum 25-OH vitam in D less than 20 ng/mL (1,2) . The Endoc w[facility] [place] [facility] went [facility] to [facility] defin e vitam in D insuf ficie ncy as a level betwe en 21 and 29 ng/mL (2). 1. IOM (Inst itute of Medic ine). 2010. Dieta ry refer ence adriana es for calci um and D. Yocasta tolentino [place]: [facility] . 2. Holic k MF, Binkl ey [place], Bisch off-F errar i WILDE, et al. Evalu ation , treat ment, and preve ntion of vitam in D defic iency : an Endoc rine Socie ty clini gale pract ice guide line. JCEM. 2010; 96(7) :1911 -30. Not Available [facility] ([facility]) [address] [place], [address], 06/05/2023 06:17:41 06/27/19 24 06/28/2023 NUSWA B VAGIN ITIS PLUS (VG+) atopobium vaginae Low - 0 score Not Available [facility] ([facility]) [address] [place], [address], 06/29/2023 07:37:29 06/27/19 24 06/28/2023 NUSWA B VAGIN ITIS PLUS (VG+) bvab 2 Low - 0 score Not Available [facility] ([facility]) [address] [place], [address], 06/29/2023 07:37:29 06/27/19 24 06/28/2023 NUSWA B VAGIN ITIS PLUS (VG+) megasphaera 1 Low - 0 score Calcu late total score by addin g the 3 indiv idual bacte rial vagin [...] e amanda cteri stics deter mined by [facility]. It has not been clear ed or appro vickey by the Food and Drug Admin istra tion. Not Available [facility] ([facility]) [address] [place], [address], 06/29/2023 07:37:29 06/27/19 24 06/28/2023 NUSWA B VAGIN ITIS PLUS (VG+) giana albicans, JUNIOR Negati ve negati ve Not Available [facility] ([facility]) [address] [place], [address], 06/29/2023 07:37:29 06/27/19 24 06/28/2023 NUA B VAGIN ITIS PLUS (VG+) giana glabrata, JUNIOR Negati ve negati ve Not Available [facility] ([facility]) [address] [place], [address], 06/29/2023 07:37:29 06/27/19 24 06/29/2023 NUA B VAGIN ITIS PLUS (VG+) trich vag by JUNIOR Negati ve negati ve Not Available [facility] ([facility]) [address] [place], [address], 06/29/2023 07:37:29 06/27/19 24 06/29/2023 NUSWA B VAGIN ITIS PLUS (VG+) chlamydia trachomatis, JUNIOR Negati ve negati ve Not Available [facility] ([facility]) [address] [place], [address], 06/29/2023 07:37:29 06/27/19 24 06/29/2023 NUSWA B VAGIN ITIS PLUS (VG+) neisseria gonorrhoeae, JUNIOR Negati ve negati ve Not Available [facility] ([facility]) [address] [place], [address], 06/29/2023 07:37:29 06/27/19 24 07/02/2023 IGP, RFX APTIM A HPV ASCU diagnosis: Jaspreet hdz NEGAT GET FOR INTRA EPITH ELIAL LESIO N OR PINKY NGUYEN . THIS SPECI MEN WAS RESCR EENED PART OF OUR QUALI TY CONTR OL PROGR AM. Not Available [facility] ([facility]) [address] [place], [address], 07/02/2023 16:37:01 06/27/19 24 07/02/2023 IGP, RFX APTIM A HPV ASCU specimen adequacy: Jaspreet t Satis facto ry for evalu ation . Endoc ervic al and/o r squam ous metap lasti c cells (endo cervi gale compo nent) are prese nt. Not Available [facility] ([facility]) [address] [place], [address], 07/02/2023 16:37:01 06/27/19 24 07/02/2023 IGP, RFX APTIM A HPV ASCU clinician provided ICD10: Jaspreet hdz Z12.4 L29.3 Not Available [facility] ([facility]) [address] [place], [address], 07/02/2023 16:37:01 06/27/19 24 07/02/2023 IGP, RFX APTIM A HPV ASCU performed by: Jaspreet mora, Cytot echno logis t (ASCP ) Not Available [facility] ([facility]) [address] [place], [address], 07/02/2023 16:37:01 06/27/19 24 07/02/2023 IGP, RFX APTIM A HPV ASCU QC reviewed by: Jaspreet Rodriguez ams, Cytot echno logis t (ASCP ) Not Available [facility] ([facility]) [address] [place], [address], 07/02/2023 16:37:01 06/27/19 24 07/02/2023 IGP, RFX APTIM A HPV ASCU . . Not Available [facility] ([facility]) [address] [place], [address], 07/02/2023 16:37:01 06/27/19 24 07/02/2023 IGP, RFX APTIM A HPV ASCU note: Commen t The Pap smear is a scree waqas test mynor smith to aid in the detec tion of jenny ligna nt and malig nant condi tions of the uteri ne cervi x. It is not a diagn ostic proce dure and shoul d not be used as the sole means of detec ting cervi gale cance r. Both false -posi tive and false -nega tive repor ts do occur . Not Available [facility] ([facility]) [address] [place], [address], 07/02/2023 16:37:01 06/27/19 24 07/02/2023 IGP, RFX APTIM A HPV ASCU test methodology: Commen t This liqui d based ThinP rep(R ) pap test was scree sarah with the use of an image guide rosibel granger. Not Available [facility] ([facility]) [address] [place], [address], 07/02/2023 16:37:01 06/27/19 24 07/02/2023 IGP, RFX APTIM A HPV ASCU . Commen t The HPV DNA refle x crite disha were not met with this speci men resul t there fore, no HPV testi ng was perfo rmed. Not Available [facility] ([facility]) [address] [place], [address], 07/02/2023 16:37:01 05/05/19 25 05/06/2024 LIPID PANEL cholesterol, total 180 mg/dL 100-19 9 Not Available [facility] ([facility]) [address] [place], [address], 05/06/2024 09:15:07 05/05/19 25 05/06/2024 LIPID PANEL triglyceride s 125 mg/dL 0-149 Not Available [facility] ([facility]) [address] [place], [address], 05/06/2024 09:15:07 05/05/19 25 05/06/2024 LIPID PANEL HDL cholesterol 50 mg/dL >39 Not Available [facility] ([facility]) [address] [place], [address], 05/06/2024 09:15:07 05/05/19 25 05/06/2024 LIPID PANEL VLDL cholesterol gale 22 mg/dL 5-40 Not Available [facility] ([facility]) [address] [place], [address], 05/06/2024 09:15:07 05/05/19 25 05/06/2024 LIPID PANEL LDL chol calc ([facility]) 108 mg/dL 0-99 above high normal Not Available [facility] ([facility]) [address] [place], [address], 05/06/2024 09:15:07 05/05/19 25 05/06/2024 COMP. METAB OLIC PANEL (14) glucose 72 mg/dL 70-99 Not Available [facility] ([facility]) [address] [place], [address], 05/06/2024 09:15:09 05/05/19 25 05/06/2024 COMP. METAB OLIC PANEL (14) BUN 10 mg/dL 6-20 Not Available [facility] ([facility]) [address] [place], [address], 05/06/2024 09:15:09 05/05/19 25 05/06/2024 COMP. METAB OLIC PANEL (14) creatinine 0.77 mg/dL 0.57-1 .00 Not Available [facility] ([facility]) [address] [facility], [place], [address], 05/06/2024 09:15:09 05/05/19 25 05/06/2024 COMP. METAB OLIC PANEL (14) eGFR 111 mL/mi n/1.7 3 >59 Not Available [facility] ([facility]) [address], [place], [address], 05/06/2024 09:15:09 05/05/19 25 05/06/2024 COMP. METAB OLIC PANEL (14) BUN/creatini ne ratio 13 9-23 Not Available [facility] ([facility]) [address] [facility], [place], [address], 05/06/2024 09:15:09 05/05/19 25 05/06/2024 COMP. METAB OLIC PANEL (14) sodium 143 mmol/ L 134-14 4 Not Available [facility] ([facility]) [address] [facility], [place], [address], 05/06/2024 09:15:09 05/05/19 25 05/06/2024 COMP. METAB OLIC PANEL (14) potassium 4.0 mmol/ L 3.5-5. 2 Not Available [facility] ([facility]) [address] [facility], [place], [address], 05/06/2024 09:15:09 05/05/19 25 05/06/2024 COMP. METAB OLIC PANEL (14) chloride 102 mmol/ L 96-106 Not Available [facility] ([facility]) [address] [facility] [place], [address], 05/06/2024 09:15:09 05/05/19 25 05/06/2024 COMP. METAB OLIC PANEL (14) carbon dioxide, total 25 mmol/ L 20-29 Not Available [facility] ([facility]) [address] [facility], [place], [address], 05/06/2024 09:15:09 05/05/19 25 05/06/2024 COMP. METAB OLIC PANEL (14) calcium 9.7 mg/dL 8.7-10 .2 Not Available [facility] ([facility]) [address], [place], [address], 05/06/2024 09:15:09 05/05/19 25 05/06/2024 COMP. METAB OLIC PANEL (14) protein, total 7.1 g/dL 6.0-8. 5 Not Available [facility] ([facility]) [address] [place], [address], 05/06/2024 09:15:09 05/05/19 25 05/06/2024 COMP. METAB OLIC PANEL (14) albumin 4.5 g/dL 4.0-5. 0 Not Available [facility] ([facility]) [address] [facility] [place] [place], [address], 05/06/2024 09:15:09 05/05/19 25 05/06/2024 COMP. METAB OLIC PANEL (14) globulin, total 2.6 g/dL 1.5-4. 5 Not Available [facility] ([facility]) [address] [facility] [place] [place], [address], 05/06/2024 09:15:09 05/05/19 25 05/06/2024 COMP. METAB OLIC PANEL (14) bilirubin, total 0.6 mg/dL 0.0-1. 2 Not Available [facility] ([facility]) [address] [facility] [place] [place], [address], 05/06/2024 09:15:09 05/05/19 25 05/06/2024 COMP. METAB OLIC PANEL (14) alkaline phosphatase 71 IU/L 44-121 Not Available [facility] ([facility]) [address] [facility] [place], [address], 05/06/2024 09:15:09 05/05/19 25 05/06/2024 COMP. METAB OLIC PANEL (14) AST (SGOT) 15 IU/L 0-40 Not Available [facility] ([facility]) [address] [place], [address], 05/06/2024 09:15:09 05/05/19 25 05/06/2024 COMP. METAB OLIC PANEL (14) ALT (SGPT) 25 IU/L 0-32 Not Available [facility] ([facility]) [address] [facility], [place], [address], 05/06/2024 09:15:09 05/05/19 25 05/06/2024 TSH RFX ON ABNOR MAL TO FREE T4 TSH 1.090 uIU/m L 0.450- 4.500 Not Available [facility] ([facility]) [address] [place], [address], 05/06/2024 09:15:11 05/05/19 25 05/06/2024 VITAM IN B12 AND FOLAT E vitamin B12 583 pg/mL 232-12 45 Not Available [facility] ([facility]) [address] [place], [address], 05/06/2024 09:15:12 05/05/19 25 05/06/2024 VITAM IN B12 AND FOLAT E folate (folic acid), serum 7.6 NG/mL >3.0 A serum folat e michael ntrat ion of less than 3.1 ng/mL is consi dered to repre sent clini gale defic iency . Not Available [facility] ([facility]) [address] [place], [address], 05/06/2024 09:15:12 05/05/19 25 05/06/2024 HEMOG LOBIN A1C hemoglobin A1C 5.4 % 4.8-5. 6 Predi abete s: 5.7 - 6.4 Diabe omid: >6.4 Glyce sergio contr ol for adult s with diabe omid: <7.0 Not Available [facility] ([facility]) [address] [place], [address], 05/06/2024 09:15:13 05/05/1905/06/2024 MAGNE SIUM magnesium 2.2 mg/dL 1.6-2. 3 Not Available [facility] ([facility]) [address] [facility], [place], [address], 05/06/2024 09:15:14 05/05/1905/06/2024 PRECIOUS TIN ferritin 116 NG/mL 15-150 Not Available [facility] ([facility]) [address] [place], [address], 05/06/2024 09:15:16 05/05/1905/06/2024 CBC, PLATE LET, NO DIFFE RENTI AL WBC 6.8 x10e3 /uL 3.4-10 .8 Not Available [facility] ([facility]) [address] [place], [address], 05/06/2024 09:15:17 05/05/1905/06/2024 CBC, PLATE LET, NO DIFFE RENTI AL RBC 4.92 x10e6 /uL 3.77-5 .28 Not Available [facility] ([facility]) [address] [place], [address], 05/06/2024 09:15:17 05/05/1905/06/2024 CBC, PLATE LET, NO DIFFE RENTI AL hemoglobin 14.9 g/dL 11.1-1 5.9 Not Available [facility] ([facility]) [address] [place], [address], 05/06/2024 09:15:17 05/05/1905/06/2024 CBC, PLATE LET, NO DIFFE RENTI AL hematocrit 45.9 % 34.0-4 6.6 Not Available [facility] ([facility]) [address] [place], [address], 05/06/2024 09:15:17 05/05/1905/06/2024 CBC, PLATE LET, NO DIFFE RENTI AL MCV 93 fL 79-97 Not Available [facility] ([facility]) [address] [facility], [place], [address], 05/06/2024 09:15:17 05/05/1905/06/2024 CBC, PLATE LET, NO DIFFE RENTI AL MCH 30.3 pg 26.6-3 3.0 Not Available [facility] ([facility]) [address] [facility], [place], [address], 05/06/2024 09:15:17 05/05/1905/06/2024 CBC, PLATE LET, NO DIFFE RENTI AL MCHC 32.5 g/dL 31.5-3 5.7 Not Available [facility] ([facility]) [address] [facility], [place], [address], 05/06/2024 09:15:17 05/05/1905/06/2024 CBC, PLATE LET, NO DIFFE RENTI AL RDW 12.3 % 11.7-1 5.4 Not Available [facility] ([facility]) [address] [facility], [place], [address], 05/06/2024 09:15:17 05/05/1905/06/2024 CBC, PLATE LET, NO DIFFE RENTI AL platelets 309 x10e3 /uL 150-45 0 Not Available [facility] ([facility]) [address] [place], [address], 05/06/2024 09:15:17 05/05/1905/06/2024 VITAM IN D, 25-HY [...] and D. Yocasta tolentino [place]: [facility] Press . 2. Albertina k MF, Abdiaziz ey [place], Bisch off-F errar i WILDE, et al. Evalu ation , treat ment, and preve ntion of vitam in D defic iency : an Endoc rine Socie ty clini gale pract ice guide line. JCEM. 2010; 96(7) :1911 -30. Not Available [facility] ([facility]) [address] [place], [address], 05/06/2024 09:15:18 01/28/20 25 01/28/2025 XIANG C DISEA SE PANEL endomysial antibody IgA NEGATI VE negati ve Not Available [facility] ([facility]) [address] [place], [address], 02/01/2025 14:11:15 01/28/20 25 01/28/2025 XIANG C DISEA SE PANEL T-transgluta minase (ttg) IgA <2 U/mL 0-3 Negat get 0 - 3 Weak Posit get 4 - 10 Posit get >10 Tissu e Trans gluta ben e (tTG) has been ident ified as the endom ysial antig en. Studi es have demon str- ated that endom ysial IgA antib odies have over 99% speci ficit y for glute n sensi tive enter opath y. Not Available [facility] ([facility]) [address] [place], [address], 02/01/2025 14:11:15 01/28/20 25 01/28/2025 XIANG ARRIAZAA SE PANEL immunoglobul in A, qn, serum 180 mg/dL 87-352 Not Available [facility] ([facility]) [address] [place], [address], 02/01/2025 14:11:15 01/28/20 25 01/28/2025 TSH+F REE T4 TSH 2.410 uIU/m L 0.450- 4.500 Not Available [facility] ([facility]) [address] [place], [address], 02/01/2025 14:11:16 01/28/2001/28/2025 TSH+F REE T4 T4,free(dire ct) 1.14 NG/dL 0.82-1 .77 Not Available [facility] ([facility]) [address] [place], [address], 02/01/2025 14:11:16 01/28/20 25 01/28/2025 CMP14 +EGFR glucose 75 mg/dL 70-99 Not Available [facility] ([facility]) [address] [place], [address], 02/01/2025 14:11:16 01/28/20 25 01/28/2025 CMP14 +EGFR BUN 13 mg/dL 6-20 Not Available [facility] ([facility]) [address] [place], [address], 02/01/2025 14:11:16 01/28/20 25 01/28/2025 CMP14 +EGFR creatinine 0.74 mg/dL 0.57-1 .00 Not Available [facility] ([facility]) [address] [place], [address], 02/01/2025 14:11:16 01/28/20 25 01/28/2025 CMP14 +EGFR eGFR 116 mL/mi n/1.7 3 >59 Not Available [facility] ([facility]) [address] [facility], [place], [address], 02/01/2025 14:11:16 01/28/20 25 01/28/2025 CMP14 +EGFR BUN/creatini ne ratio 18 9-23 Not Available [facility] ([facility]) [address] [facility], [place], [address], 02/01/2025 14:11:16 01/28/20 25 01/28/2025 CMP14 +EGFR sodium 140 mmol/ L 134-14 4 Not Available [facility] ([facility]) [address] [place], [address], 02/01/2025 14:11:16 01/28/20 25 01/28/2025 CMP14 +EGFR potassium 4.3 mmol/ L 3.5-5. 2 Not Available [facility] ([facility]) [address] [facility], [place], [address], 02/01/2025 14:11:16 01/28/20 25 01/28/2025 CMP14 +EGFR chloride 102 mmol/ L 96-106 Not Available [facility] ([facility]) [address] [place], [address], 02/01/2025 14:11:16 01/28/20 25 01/28/2025 CMP14 +EGFR carbon dioxide, total 22 mmol/ L 20-29 Not Available [facility] ([facility]) [address] [place], [address], 02/01/2025 14:11:16 01/28/20 25 01/28/2025 CMP14 +EGFR calcium 9.3 mg/dL 8.7-10 .2 Not Available [facility] ([facility]) [address] [place], [address], 02/01/2025 14:11:16 01/28/20 25 01/28/2025 CMP14 +EGFR protein, total 7.0 g/dL 6.0-8. 5 Not Available [facility] ([facility]) [address] [facility] [place], [address], 02/01/2025 14:11:16 01/28/20 25 01/28/2025 CMP14 +EGFR albumin 4.7 g/dL 4.0-5. 0 Not Available [facility] ([facility]) [address] [facility] [place], [address], 02/01/2025 14:11:16 01/28/20 25 01/28/2025 CMP14 +EGFR globulin, total 2.3 g/dL 1.5-4. 5 Not Available [facility] ([facility]) [address] [facility] [place], [address], 02/01/2025 14:11:16 01/28/2001/28/2025 CMP14 +EGFR bilirubin, total 0.6 mg/dL 0.0-1. 2 Not Available [facility] ([facility]) [address] [facility] [place] [place], [address], 02/01/2025 14:11:16 01/28/20 25 01/28/2025 CMP14 +EGFR alkaline phosphatase 69 IU/L 41-116 Not Available [facility] ([facility]) [address] [facility] [place], [address], 02/01/2025 14:11:16 01/28/20 25 01/28/2025 CMP14 +EGFR AST (SGOT) 15 IU/L 0-40 Not Available [facility] ([facility]) [address] [facility] [place] [place], [address], 02/01/2025 14:11:16 01/28/20 25 01/28/2025 CMP14 +EGFR ALT (SGPT) 16 IU/L 0-32 Not Available [facility] ([facility]) [address] [facility] [place] [place], [address], 02/01/2025 14:11:16 11/05/20 25 01/27/2025 FOOD ALLER GY PROFI LE W/REF THANIA class description COMMEN T Level s of Speci fic IgE Class Descr iptio n of Class ----- ----- ----- ----- ----- -- ----- ----- ----- ----- ----- < 0.10 0 Negat get 0.10 - 0.31 0/I Equiv ocal/ Low 0.32 - 0.55 I Low 0.56 - 1.40 II Moder ate 1.41 - 3.90 III High 3.91 - 19.00 IV Very High 19.01 - 100.0 0 V Very High >100. 00 Very High Not Available [facility] ([facility]) [address] [place], [address], 02/01/2025 14:11:17 01/28/20 25 02/01/2025 FOOD ALLER GY PROFI LE W/REF THANIA X297-NfL egg white 0.33 kU/L classi abnormal Not Available [facility] ([facility]) [address] [place], [address], 02/01/2025 14:11:17 01/28/20 25 02/01/2025 FOOD ALLER GY PROFI LE W/REF THANIA M589-MdV peanut <0.10 kU/L class0 Not Available [facility] ([facility]) [address] [place], [address], 02/01/2025 14:11:17 01/28/20 25 02/01/2025 FOOD ALLER GY PROFI LE W/REF THANIA I787-TaL soybean <0.10 Not Available [facility] ([facility]) [address] [place], [address], 02/01/2025 14:11:17 01/28/20 25 02/01/2025 FOOD ALLER GY PROFI LE W/REF THANIA O665-IgU milk 0.28 kU/L class0 /I abnormal Not Available [facility] ([facility]) [address] [place], [address], 02/01/2025 14:11:17 01/28/20 25 02/01/2025 FOOD ALLER GY PROFI LE W/REF THANIA Q199-OzL clam <0.10 kU/L class0 Not Available [facility] ([facility]) [address] [place], [address], 02/01/2025 14:11:17 01/28/20 25 02/01/2025 FOOD ALLER GY PROFI LE W/REF THANIA P636-YvZ shrimp 0.18 kU/L class0 /I abnormal Not Available [facility] ([facility]) [address] [facility], [place], [address], 02/01/2025 14:11:17 01/28/20 25 02/01/2025 FOOD ALLER GY PROFI LE W/REF THANIA Y351-DpB walnut <0.10 kU/L class0 Not Available [facility] ([facility]) [address] [place], [address], 02/01/2025 14:11:17 01/28/20 25 02/01/2025 FOOD ALLER GY PROFI LE W/REF THANIA L741-MtA codfish <0.10 Not Available [facility] ([facility]) [address] [place], [address], 02/01/2025 14:11:17 01/28/20 25 02/01/2025 FOOD ALLER GY PROFI LE W/REF THANIA O160-XmZ scallop <0.10 Not Available [facility] ([facility]) [address] [place], [address], 02/01/2025 14:11:17 01/28/20 25 02/01/2025 FOOD ALLER GY PROFI LE W/REF THANIA M170-LaR wheat <0.10 Not Available [facility] ([facility]) [address] [facility], [place], [address], 02/01/2025 14:11:17 01/28/20 25 02/01/2025 FOOD ALLER GY PROFI LE W/REF THANIA Q266-MoZ corn <0.10 Not Available [facility] ([facility]) [address] [facility], [place], [address], 02/01/2025 14:11:17 01/28/20 25 02/01/2025 FOOD ALLER GY PROFI LE W/REF THANIA K447-LqZ sesame seed <0.10 Not Available [facility] ([facility]) [address] [facility], [place], [address], 02/01/2025 14:11:17 01/28/20 25 01/28/2025 VITAM IN B12 AND FOLAT E vitamin B12 488 pg/mL 232-12 45 Not Available [facility] ([facility]) [address] [facility], [place], [address], 02/01/2025 14:11:18 01/28/2001/28/2025 VITAM IN B12 AND FOLAT E folate (folic acid), serum 6.4 NG/mL >3.0 A serum folat e michael ntrat ion of less than 3.1 ng/mL is consi dered to repre sent clini gale defic iency . Not Available [facility] ([facility]) [address] [facility], [place], [address], 02/01/2025 14:11:18 01/28/20 25 01/28/2025 HEMOG LOBIN A1C hemoglobin A1C 5.2 % 4.8-5. 6 Predi abete s: 5.7 - 6.4 Diabe omid: >6.4 Glyce sergio contr ol for adult s with diabe omid: <7.0 Not Available [facility] ([facility]) [address] [facility], [place], [address], 02/01/2025 14:11:18 01/28/20 25 01/28/2025 INSUL IN insulin 13.1 uIU/m L 2.6-24 .9 Not Available [facility] ([facility]) [address] [facility], [place], [address], 02/01/2025 14:11:19 01/28/20 25 01/28/2025 CBC WITH DIFFE RENTI AL/PL ATELE T WBC 6.7 x10e3 /uL 3.4-10 .8 Not Available [facility] ([facility]) [address] [facility], [place], [address], 02/01/2025 14:11:20 01/28/20 25 01/28/2025 CBC WITH DIFFE RENTI AL/PL ATELE T RBC 4.83 x10e6 /uL 3.77-5 .28 Not Available [facility] ([facility]) [address] [facility], [place], [address], 02/01/2025 14:11:20 01/28/20 25 01/28/2025 CBC WITH DIFFE RENTI AL/PL ATELE T hemoglobin 14.2 g/dL 11.1-1 5.9 Not Available [facility] ([facility]) [address] [facility], [place], [address], 02/01/2025 14:11:20 01/28/20 25 01/28/2025 CBC WITH DIFFE RENTI AL/PL ATELE T hematocrit 43.7 % 34.0-4 6.6 Not Available [facility] ([facility]) [address] [facility], [place], [address], 02/01/2025 14:11:20 01/28/20 25 01/28/2025 CBC WITH DIFFE RENTI AL/PL ATELE T MCV 91 fL 79-97 Not Available [facility] ([facility]) [address] [facility], [place], [address], 02/01/2025 14:11:20 01/28/20 25 01/28/2025 CBC WITH DIFFE RENTI AL/PL ATELE T MCH 29.4 pg 26.6-3 3.0 Not Available [facility] ([facility]) [address] [facility], [place], [address], 02/01/2025 14:11:20 01/28/20 25 01/28/2025 CBC WITH DIFFE RENTI AL/PL ATELE T MCHC 32.5 g/dL 31.5-3 5.7 Not Available [facility] ([facility]) [address] [facility], [place], [address], 02/01/2025 14:11:20 01/28/20 25 01/28/2025 CBC WITH DIFFE RENTI AL/PL ATELE T RDW 12.4 % 11.7-1 5.4 Not Available [facility] ([facility]) [address] [facility], [place], [address], 02/01/2025 14:11:20 01/28/20 25 01/28/2025 CBC WITH DIFFE RENTI AL/PL ATELE T platelets 329 x10e3 /uL 150-45 0 Not Available [facility] ([facility]) [address] [facility], [place], [address], 02/01/2025 14:11:20 01/28/20 25 01/28/2025 CBC WITH DIFFE RENTI AL/PL ATELE T neutrophils 63 % notest ab. Not Available [facility] ([facility]) [address] [place], [address], 02/01/2025 14:11:20 01/28/20 25 01/28/2025 CBC WITH DIFFE RENTI AL/PL ATELE T lymphs 31 % notest ab. Not Available [facility] ([facility]) [address] [place], [address], 02/01/2025 14:11:20 01/28/20 25 01/28/2025 CBC WITH DIFFE RENTI AL/PL ATELE T monocytes 5 % notest ab. Not Available [facility] ([facility]) [address] [facility], [place], [address], 02/01/2025 14:11:20 01/28/20 25 01/28/2025 CBC WITH DIFFE RENTI AL/PL ATELE T eos 1 % notest ab. Not Available [facility] ([facility]) [address] [facility], [place], [address], 02/01/2025 14:11:20 01/28/20 25 01/28/2025 CBC WITH DIFFE RENTI AL/PL ATELE T basos 0 % notest ab. Not Available [facility] ([facility]) [address] [facility], [place], [address], 02/01/2025 14:11:20 01/28/20 25 01/28/2025 CBC WITH DIFFE RENTI AL/PL ATELE T neutrophils (absolute) 4.1 x10e3 /uL 1.4-7. 0 Not Available [facility] ([facility]) [address] [facility], [place], [address], 02/01/2025 14:11:20 01/28/20 25 01/28/2025 CBC WITH DIFFE RENTI AL/PL ATELE T lymphs (absolute) 2.1 x10e3 /uL 0.7-3. 1 Not Available [facility] ([facility]) [address] [facility], [place], [address], 02/01/2025 14:11:20 01/28/20 25 01/28/2025 CBC WITH DIFFE RENTI AL/PL ATELE T monocytes(ab solute) 0.4 x10e3 /uL 0.1-0. 9 Not Available [facility] ([facility]) [address] [facility], [place], [address], 02/01/2025 14:11:20 01/28/20 25 01/28/2025 CBC WITH DIFFE RENTI AL/PL ATELE T eos (absolute) 0.1 x10e3 /uL 0.0-0. 4 Not Available [facility] ([facility]) [address] [place], [address], 02/01/2025 14:11:20 01/28/20 25 01/28/2025 CBC WITH DIFFE RENTI AL/PL ATELE T baso (absolute) 0.0 x10e3 /uL 0.0-0. 2 Not Available [facility] ([facility]) [address] [facility], [place], [address], 02/01/2025 14:11:20 01/28/20 25 01/28/2025 CBC WITH DIFFE RENTI AL/PL ATELE T immature granulocytes 0 % notest ab. Not Available [facility] ([facility]) [address] [place], [address], 02/01/2025 14:11:20 01/28/20 25 01/28/2025 CBC WITH DIFFE RENTI AL/PL ATELE T immature grans (abs) 0.0 x10e3 /uL 0.0-0. 1 Not Available [facility] ([facility]) [address] [place], [address], 02/01/2025 14:11:20 01/28/20 25 01/28/2025 IVETTE+L IPASE amylase 96 U/L 31-110 Not Available [facility] ([facility]) [address] [place], [address], 02/01/2025 14:11:20 01/28/20 25 01/28/2025 IVETTE+L IPASE lipase 22 U/L 14-72 Not Available [facility] ([facility]) [address] [place], [address], 02/01/2025 14:11:20 01/28/20 25 01/28/2025 VITAM IN [...] um and D. Yocasta tolentino [place]: [facility] . 2. Albertina latif MF, Abdiaziz khanna [place], Bridgette off-F errar i WILDE, et al. Evalu ation , treat ment, and preve ntion of vitam in D defic iency : an Endoc rine Socie ty clini gale pract ice guide line. JCEM. 2010; 96(7) :1911 -30. Not Available [facility] ([facility]) [address] [facility], [place], [address], 02/01/2025 14:11:21 12/11/19 24 12/10/2023 MRI, lumba r spine , w/o contr ast No observ ation record ed. [address] [place], [address], 12/13/2023 14:18:10 01/07/20 24 01/03/2024 , leann zimmer r No observ ation record ed. [address] [place], [address], 01/08/2024 17:30:04 Result Notes None recorded. Problems Name Problem SNOMED Code Status Onset Date Resolution Date Notes Provider Name and Address Organization Details Recorded Time Todd huang 60501046 Completed 01/09/2017 ELIZABETH Hare - [facility] 7 14:40:52 Headache 30865611 Completed 01/09/2017 Kaushik black, [place] - [facility] 7 14:40:40 Obesity 072618909 Completed 02/07/2017 Celeste Berrios APN, FNP-C Attn: Mireya marianne,[address], [place], [address], [place] - [facility] 2 16:18:54 Low back pain 551038805 Completed 01/09/2017 [place] [facility] 7 14:40:43 Vitamin D deficienc y 91065643 Active Howard Webster null[place] - [facility] 6 12:07:09 Overweigh t 149049077 Completed 01/09/2017 [place]aush[place] [facility] 7 14:40:46 Myopia 81210056 Completed 01/09/2017 [place]aush[place] [facility] 7 14:40:55 Upper respirato ry infection 48041458 Completed 01/09/2017 [place]aush[place] [facility] 7 14:40:49 Mild intermitt ent asthma 350677200 Active Howard Webster [place] [facility] 6 12:07:09 Impacted cerumen 73455780 Completed 01/09/2017 [place] [facility] 7 14:40:36 Hand foot and mouth disease 986455095 Completed 01/09/2017 [place]aush[place] [facility] 7 14:40:39 History of asthma 446088674 Active 2018 Larry Duckworth sofia[place] - [facility] 9 10:22:33 Unintenti onal weight gain 144554692937 104 Active 2021 Celeste Berrios APN, FNP-C Attn: Mireya lopes,[address], [place], [address], [place] - [facility] 2 09:39:27 Obesity 853163279 Active 2021 Celeste Berrios APN, FNP-C Attn: Mireya lopes,[address] [facility], [place], [address], [facility] 2 16:18:53 Posterior rhinorrhe a 81568147 Active 2021 Celeste Berrios APN, CNC GRINDER-C Attn: Mireya lopes,[address] [facility], [place], [address], [facility] 2 17:24:16 Dysfuncti on of [place]ia n tube 93838813 Active 2021 Celeste Berrios APN, CNC GRINDER-C Attn: Mireya lopes,[address], [place], [address], [facility] 2 14:16:13 Sciatica 78094410 Active 2022 Celeste Berrios APN CNC GRINDER-C Attn: Mireya lopes,[address] [facility], [place], [address], [facility] 3 15:00:27 Problem Notes None recorded. Procedures Surgical History Date Name Laterality Status Provider Name and Address Organization Details Recorded Time 7 Nebulizer tx completed Uraiwan Hompluem [facility] 05/23/2016 17:58:02 7 Nebulizer tx completed Uraiwan Hompluem [facility] 05/22/2016 17:49:08 6 [facility] 14:35:02 Imaging Results None recorded. Procedure [...] mass index (BMI) Body weight Oxygen saturation Respiratory rate Body temperature Heart rate Systolic And Diastolic Provider Name and Address Organization Details Last Updated DateTime 5 160.02 cm 32.4 kg/m2 30459.4 g 98 % 16 /min 97.5 [degF] 84 /min 124/80 mm[Hg] BRIANDA [place] - [facility] 5 15:53:32 Date Recorded Body height Body mass index (BMI) Body weight Heart rate Respiratory rate Body temperature Systolic And Diastolic Provider Name and Address Organization Details Last Updated DateTime 4 160.02 cm 30.3 kg/m2 58723.6 5 g 78 /min 16 /min 98.7 [degF] 116/75 mm[Hg] Comfort Bill MA [facility] 4 14:08:23 Date Recorded Body height Body mass index (BMI) Body weight Oxygen saturation Respiratory rate Body temperature Heart rate Systolic And Diastolic Provider Name and Address Organization Details Last Updated DateTime 4 160.02 cm 32.2 kg/m2 97111.8 1 g 98 % 16 /min 98.2 [degF] 84 /min 116/84 mm[Hg] Gillian Mendieta [facility] 4 15:14:53 Date Recorded Body height Body mass index (BMI) Body weight Respiratory rate Body temperature Oxygen saturation Heart rate Systolic And Diastolic Provider Name and Address Organization Details Last Updated DateTime 5 160.02 cm 34 kg/m2 84955.7 4 g 16 /min 98 [degF] 98 % 72 /min 124/84 mm[Hg] Gillian Mendieta [facility] 5 16:23:54 Date Recorded Body height Body mass index (BMI) Body weight Respiratory rate Body temperature Oxygen saturation Heart rate Systolic And Diastolic Provider Name and Address Organization Details Last Updated DateTime 5 160.02 cm 34.7 kg/m2 13641.1 g 16 /min 98 [degF] 98 % 70 /min 130/84 mm[Hg] Gillian Mendieta [facility] 5 11:25:48 Social History Question Answer Notes LastModified by Organizat ion Details LastModified Time Tobacco Smoking Status Never Smoker Evy Ingram MA [facility], [facility] 03/23/2014 14:51:40 Do You Have An Advance Directive? No Information not available 06/10/2019 Animal Exposure? No [email or web address] Informa tion not available 12/30/2015 Do You Wear A Helmet When Biking? No [email or web address] Information not available 03/23/2014 Are You Blind Or Do You Have Difficulty Seeing? No Information not available 05/27/2020 What Is Your Level Of Caffeine Consumption? Occasional [email or web address] Information not available 05/27/2020 How Much Tobacco Do You Chew? 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 No [email or web address] Information not available 05/27/2020 What Type Of Diet Are You Following? REGULAR Information not available 03/08/2025 Which Illicit Or Recreational Drugs Have You Used? Denied Information not available 06/10/2019 Education 12 [facility] [place] Information not available 06/10/2019 Have There Been Any Changes To Your Family Or Social Situation? No [email or web address] Information not available 03/23/2014 What Is The Fluoride Status Of Your Home? Fluoridated [email or web address] Information not available 12/30/2015 Are There Any Guns Present In Your Home? No [email or web address] Information not available 03/23/2014 Hard Of Hearing Or Deaf In One Or Both Ears? No Information not available 06/10/2019 What Is Your Home Situation? Both Parents Parents, 2 Brothers [email or web address] Information not available 07/21/2014 Do You Use Insect Repellent Routinely? Yes [email or web address] Information not available 03/23/2014 Legally Blind In One Or Both Eyes? No Information not available 06/10/2019 Marital Status Single Informatio n not available 06/10/2019 What Was The Date Of Your Most Recent Tobacco Screening? 03/08/2025 Information not available 03/08/2025 What Is Your Parents' Marital Status? [email or web address] Information not available 03/23/2014 Performs Monthly Self-breast Exam? No Information not available 06/10/2019 Pool Exposure No [email or web address] Informatio n not available 03/23/2014 What Is Your Relationship Status? Single [email or web address] Information not available 05/27/2020 What Is The Name Of Your School? [email or web address] Information not available 12/15/2020 Do You Use Your Seat Belt Or Car Seat Routinely? Yes [email or web address] Information not available 05/27/2020 Seat Belts Used Routinely Yes Information not available 06/10/2019 Are You Sexually Active? No [email or web address] Information not available 05/27/2020 Do You Have Any Siblings? 2 Brothers [email or web address] Information not available 03/23/2014 Smoke Alarm In Home Yes Information not available 06/10/2019 Do You Have Smoke And Carbon Monoxide Detectors In Your Home? Yes [email or web address] Information not available 03/23/2014 Are You Passively Exposed To Smoke? Yes Mom And Dad Smoke Outside [email or web address] Information not available 03/23/2014 How Much Tobacco Do You Smoke? No Information not available 06/10/2019 What Types Of Sporting Activities Do You Participate In? None [email or web address] Information not available 03/23/2014 General Stress Level Medium Information not available 06/10/2019 Do You Use Sunscreen Routinely? Yes [email or web address] Information not available 03/23/2014 Has Tobacco Cessation Counseling Been Provided? No [email or web address] Information not available 05/25/2021 Year In School 12 [email or web address] Informati on not available 03/28/2018 Sex: Female Functional Status Question Answer Note LastModified by Organizat ion Details LastModified Time Do you use any illicit or recreational drugs? No [email or web address] Information not available 05/27/2020 Do you or have you ever used any other forms of tobacco or nicotine? No [email or web address] Information not available 06/15/2021 What is your level of alcohol consumption? None [email or web address] Information not available 11/12/2018 Do you or have you ever used smokeless tobacco? Never used [email or web address] tobacco Information not available 06/10/2019 Are you currently employed? Yes Information not available 06/04/2023 Are you able to care for yourself independently? Yes [email or web address] Information not available 05/27/2020 What is your [...] anxious, or unable to sleep at night)? [id number] Information not available 05/05/2024 Are you or have you been involved with bullying? No [email or web address] Information not available 03/23/2014 Family History Relationship [...] N Anemia N Constipation N Heart Attack (IA) N Anxiety Disorder N Diabetes N Muscle, [...] virus, quadrivalent, PF 6 completed Not Available [facility] 04/11/2019 02:32:33 meningococcal MCV4, unspecified formulation 4 completed Not Available [facility] 11/25/2022 06:58:28 IPV 1 completed Celeste Berrios, BEHAVIOR INTERVENTIONIST, CNC GRINDER-C Attn: Accounting,[address] [facility], [place], [place], [address] [place] [address], [facility] 06/04/2023 11:00:15 pneumococcal conjugate PCV 7 1 completed Celeste Berrios, BEHAVIOR INTERVENTIONIST, CNC GRINDER-C Attn: Accounting,[address] [facility], [place], [place], [address] [place] [address], [facility] 06/04/2023 11:00:15 Tdap 4 completed Celeste Berrios, BEHAVIOR INTERVENTIONIST, CNC GRINDER-C Attn: Accounting,[address] [facility], [place], [place], [address] [place] [address], [facility] 06/04/2023 11:00:15 Novel Ekjlstbkz-[id number], all formulations 0 completed Celeste Berrios, BEHAVIOR INTERVENTIONIST, CNC GRINDER-C Attn: Accounting,[address] [facility], [place], [place], [address] [place] [address], [facility] 06/04/2023 11:00:15 influenza, split (incl. purified surface antigen) 0 completed Celeste Berrios, BEHAVIOR INTERVENTIONIST, CNC GRINDER-C Attn: Accounting,[address] [facility], [place], [place], [address] [place] [address], [facility] 06/04/2023 11:00:15 Td (adult), 5 Lf tetanus toxoid, preservative free, adsorbed 2 completed Celeste Berrios, BEHAVIOR INTERVENTIONIST, CNC GRINDER-C Attn: Accounting,[address] 1 [place], [place], [address] [place] [address], [facility] 06/04/2023 11:00:16 Hep A, pediatric, unspecified formulation 0 completed Celeste Berrios, BEHAVIOR INTERVENTIONIST, CNC GRINDER-C Attn: Accounting,204 [address] [place], [place], [address] [place] [address], [facility] 06/04/2023 11:00:16 Hep A, pediatric, unspecified formulation 9 completed Celeste Berrios, BEHAVIOR INTERVENTIONIST, CNC GRINDER-C Attn: Accounting,[address] [place], [address], [place] [facility] 06/04/2023 11:00:16 meningococcal MCV4P 4 completed NACHO McqueenN, CNC GRINDER-C Attn: Accounting,[address] [facility], [place], [address], [place] [facility] 06/04/2023 11:00:16 Influenza, split virus, quadrivalent, PF 4 completed Celeste Berrios BEHAVIOR INTERVENTIONIST, CNC GRINDER-C Attn: Accounting,[address] [facility], [place], [address], [place] [facility] 06/04/2023 11:00:16 Meningococcal MCV4O 7 completed Not Available [facility] 04/11/2019 02:33:26 HPV, quadrivalent 5 completed Not Available [facility] 04/11/2019 02:46:38 COVID-19, mRNA, LNP-S, PF, nancy-sucrose, 30 mcg/0.3 mL 4 completed Not Available [facility] 03/08/2025 11:15:12 Influenza, split virus, quadrivalent, PF 7 completed Not Available [facility] 04/11/2019 02:49:07 meningococcal B, OMV 7 completed Not Available [facility] 04/11/2019 02:34:49 Hib, unspecified formulation 2 [...] influenza, unspecified formulation 0 completed Not Available [facility] 11/25/2022 06:58:28 DTaP 1 completed Not Available [facility] 11/25/2022 06:58:28 MMR 2 completed Not Available [facility] 11/25/2022 06:58:28 DTaP 1 completed Not Available [facility] 11/25/2022 06:58:28 pneumococcal conjugate PCV 7 1 completed Not Available [facility] 11/25/2022 06:58:28 IPV 1 completed Not Available [facility] 11/25/2022 06:58:28 Hep A, ped/adol, 2 dose 9 completed Not Available [facility] 11/25/2022 06:58:28 Hep B, adolescent or pediatric 1 completed Not Available [facility] 11/25/2022 06:58:28 DTaP 2 completed Not Available [facility] 11/25/2022 06:58:28 Hib, unspecified formulation 1 completed Not Available [facility] 11/25/2022 06:58:28 IPV 1 completed Not Available [facility] 11/25/2022 06:58:28 IPV 5 completed Not Available [facility] 11/25/2022 06:58:28 varicella 2 completed Not Available [facility] 11/25/2022 06:58:28 Hib, unspecified formulation 1 completed Not Available [facility] 11/25/2022 06:58:27 DTaP 5 completed Not Available [facility] 11/25/2022 06:58:28 Hib, unspecified formulation 1 completed Not Available [facility] 11/25/2022 06:58:28 MMR 5 completed Not Available [facility] 11/25/2022 06:58:28 Hep B, adolescent or pediatric 1 completed Not Available [facility] 11/25/2022 06:58:28 meningococcal B, OMV 9 completed Not Available [facility] 04/11/2019 02:38:04 Tdap 5 completed GillianBRIANDA Pulido, [place] - [facility] 05/05/2024 16:24:13 HPV, quadrivalent 4 completed Celeste Berrios APN, TRAVIS-C Attn: Accounting,[address] , [place], [address], [facility] 06/04/2023 11:00:16 Tdap 4 completed Not Available [facility] 04/11/2019 02:39:15 HPV, quadrivalent 4 completed Not Available [facility] 04/11/2019 02:48:34 Past Encounters Encounter ID Performer Location Encounter Start Date Encounter Closed Date Diagnosis/Indication Diagnosis SNOMED-CT Code Diagnosis ICD10 Code Diagnosis IMO Codes Diagnosis Note [id number] MD Otto Mello (Peds) [address] [place] [address] 03/23/2014 14:24:19 03/23/2014 15:42:33 Upper respiratory infection 63938757 supportive care, increase water, good hygiene, repeat temp 98.3, will get shts today Mild inter mittent asthma 879431024 instruct how to use med Impacted cerumen 25118844 wash ears daily [id number] MD Otto Delgado (Peds) [address] [place] [address] 04/26/2014 14:30:15 04/26/2014 17:07:33 Upper respiratory infection 33553409 Supportive treatment. Hand hygiene. Fluid intake. Pityriasis versicolor 15940551 Antifungal shampoo to skin 3 x weekly. Stop when gone. [id number] MD Otto Armstrong (Peds) [address] [place] [address] 05/25/2014 09:32:55 05/25/2014 13:16:29 Active or passive immunization 107375452 [id number] MD Otto Armstrong (Peds) [address] [place] [address] 05/27/2014 12:05:48 05/27/2014 15:21:17 Headache 62231430 Differenti al dx. includes tension headaches vs. migraine headaches. Take ibuprofen q 6-8 hours prn headaches. Keep headache journal. Discussed ways to manage stress. Recommende d counseling , but pt. not interested at this time. Notify if headache worsens. Obesity 281960491 BMI 95th %. Discussed diet changes and getting regular exercise. Will check screening labs. [id number] MD Otto Mello (Peds) [address] [place] [address] 07/21/2014 15:18:35 07/21/2014 17:00:19 Low back pain 090627688 xray today at [facility], supportive care, no running Mild inter mittent asthma 789087851 instruct how to use med [id number] MD Farheen Mellohalto (Peds) [address] [place] [address] 07/29/2014 09:26:45 07/29/2014 14:43:38 Low back pain 044475903 supportive care, no running, good support shoes, back stretching exercise, referral to ortho in , when pt come back from [place] Impacted cerumen 23106787 wash ears daily Mild inter mittent asthma 911441448 instruct how to use med [id number] MD Farheen Mellohalto (Peds) [address] [place] [address] 12/02/2014 09:28:31 12/02/2014 14:47:39 Well child 648645136 balanced diet and exercise, good hygiene, accident prevention , breast self exam dental hygiene, see dentist q 6-12m. Vitamin D deficiency 01289242 milk 2 cups/d, vit D 2000 unit/d, aerobic exercise 30 min/d, water 4-6 cups/d, no caffeine Overweight 066050806 discu ss about healthy balanced diet and exercise, no sweet drink, increase water to 2-3 liters/d, skim milk 2 cup/d live an active life style, exercise 1 hr daily weight loss plan for 2lb/m Mild inter mittent asthma 943599867 instruct how to use med asthma action plan , pefr= 450 Impacted cerumen 04195425 wash ears daily Myopia 93828075 need glasses, pt has contact lenses and did well. [id number] MD Otto Mello (Peds) [address] [place] [address] 12/30/2015 10:48:35 12/30/2015 15:29:34 Hand foot and mouth disease 739505111 B08.4 reassure Mild inter mittent asthma 245536902 J45.20 instruct how to use med asthma action plan , pefr= 450 Impacted cerumen 4396473 6 H61.22 wash ears daily Overweight 653050292 E66 .3 discuss about healthy balanced diet and exercise, no sweet drink, increase water to 2-3 liters/d, skim milk 2 cup/d live an active life style, exercise 1 hr daily weight loss plan for 2lb/m Vitamin D deficiency 347 45420 E55.9 milk 2 cups/d, vit D 2000 unit/d, aerobic exercise 30 min/d, water 4-6 cups/d, no caffeine [id number] MD Otto Mello (Peds) [address] [place] [address] 03/22/2016 14:02:03 03/27/2016 16:16:54 Tinea corporis 39251380 B35.4 keep hands and feet dry and clean, can use bleach soak daily with 1 tbsp bleach to 1 gallon of water Impacted cerumen 9294903 6 H61.22 wash ears daily Depression screening 171 698153 Z13.89 score = 0 Body mass index 25-29 - overweight 171235577 Z68.29 [id number] MD Otto Mello (Peds) [address] [place] [address] 05/22/2016 15:31:09 05/24/2016 08:43:40 Depression screening 419853603 Z13.89 score = 0/27 Mild inter mittent asthma 362571290 J45.20 instruct how to use med asthma action plan , pefr= 450 Upper resp iratory infection 33816208 J06.9 supportive care, increase water, good hygiene, repeat temp 98.3, will get shts today, increase fluid, pt is dizzy maybe 2ndary to dehydratio n and hypoglycem ia, check lab today Exacerbati on of intermittent asthma 239177721 J45.21 albuterol q 4 hr until no cough for 2d, smoke free keep nose dry with cetrizine, saline spray prn, increase fluid contact if not better after 2d Overweight 102961909 E66 .3 discuss about healthy balanced diet and exercise, no sweet drink, increase water to 2-3 liters/d, skim milk 2 cup/d live an active life style, exercise 1 hr daily weight loss plan for 2lb/m d/w mom pt lost wt too fast [id number] [facility] [address] [place] [address] 05/23/2016 16:20:56 05/25/2016 11:42:54 Asthmatic bronchitis 093936435 J45.909 after duo neb pt was better. less hacking, albuterol q 4 hr until no cough for 2d, smoke free keep nose dry with cetrizine, saline spray prn, increase fluid contact if not better after 2d [id number] [facility] [address] [place] [address] 05/30/2016 16:09:41 06/01/2016 10:48:40 Mild intermittent asthma 561936781 J45.20 instruct how to use med asthma action plan , pefr= 450 Allergic rhinitis 717785 04 J30.89 environmen t control, keep nose dry ,saline spray prn, smoke free cetirizine or claritine prn, OTC, rtc prn Active or passive immunization 345163422 Z23 Overweight 116646922 E66 .3 discuss about healthy balanced diet and exercise, no sweet drink, increase water to 2-3 liters/d, skim milk 2 cup/d live an active life style, exercise 1 hr daily weight loss plan for 2lb/m d/w mom pt lost wt too fast [id number] [facility] [address] [facility] [place] [address] 11/14/2016 16:09:47 11/16/2016 11:19:10 Exacerbation of intermittent asthma 496155328 J45.21 [id number] [facility] [address] [place] [address] 12/18/2016 14:43:59 12/21/2016 18:00:42 Low back pain 121480023 M54.5 Suspect overuse injury or strain of muscles from lifting weights. Recommend rest, ice, massage, and ibuprofen. F/u in 2 weeks if no improvemen t. Size of br is[place] unequal 301378587 N65.1 Reassured patient that size discrepanc y is within normal limits. Notify if notice any mass, discharge or rapid increase in growth. [id number] [facility] [address] [facility] [place] [address] 01/09/2017 16:32:12 01/11/2017 09:32:08 Viral upper respiratory tract infection 400039301 J06.9 Mild inter mittent asthma 167368141 J45.20 [id number] MD Farheen Taylorhalto (Peds) [address] [facility] [place] [address] 02/07/2017 15:48:34 02/20/2017 09:39:24 Well child 576146425 Z00.705 [id number] [facility] [address] [place] [address] 08/06/2017 11:12:02 08/07/2017 14:30:06 Acute tonsillitis 40996104 J03.90 Rapid strep negative. Will send for throat cx. Given that pt's brother recently diagnosed with strep, pt. being symptomati c, and [place]. [place], will go ahead and start Amox. If culture results available prior to departure, will stop abx. if culture is negative. Mild inter mittent asthma 873889411 J45.20 Will give refill on inhaler. Will also start pt. on singulair. Notify if using inhaler more than twice a week or if pt. has nocturnal cough > 2 X/wk. Allergic rhinitis 156696 [address] on zyrtec, will refill flonase. [id number] MD Otto Taylor (Peds) [address] [facility] [place] [address] 03/28/2018 14:57:20 03/31/2018 12:39:07 Exacerbation of intermittent asthma 884856421 J45.21 [id number] MD Otto Armstrong (Peds) [address] [place] [address] 05/01/2018 13:40:30 05/02/2018 14:08:58 Prolonged periods 974909799 N92.5 Pt. having period for 1 month, no previous h/o irregular periods. Will check screening labs. Discussed starting OCPs to help regulate period, pt does not want to start at this time and wants to wait until lab results known. Vitamin D deficiency 347 21209 E55.9 Last level checked 26.7 12/30/2015, will recheck level today. Constipation 09809623 K5 9.00 Increase fruits, vegetables and water intake. Will place on trial of miralax. [id number] Yassine Curtis MD [place] [facility] IM [address] [facility] [address] [place] [address] 11/12/2018 09:51:49 11/13/2018 10:16:12 History of asthma 341428291 Z87.09 Active or passive immunization 751183065 Z23 [id number] MD Otto Sousa (Adult Med) [address] [place] [address] 06/10/2019 13:53:19 06/11/2019 11:30:47 Adult health examination 535537585 Z00.01 Encouraged routine [employer], vision, dental exams, well balanced diet. Mild inter mittent asthma 599822905 J45.20 dwp prn albuterol usereviewe d AAP Vitamin D deficiency 347 63377 E55.9 check lab Acne 93883731 L70.9 numerous closed and open comedones on face and chestdwp hygiene, use of make up and skin care regimen [id number] MD Otto Sousa (Adult Med) [address] [facility] [place] [address] 12/17/2019 08:22:43 12/18/2019 12:07:32 Neck pain 77689407 M54.2 no trauma hx or injury, sore since sleeping wrong on in a few weeks ago; dwp heating pad, prn muscle relaxer and ibu, also may cont OTC tylenol prn; will obtain xray if continued pain [id number] MD Otto Sousa (Adult Med) [address] [place] [address] 04/01/2020 08:24:58 04/04/2020 11:19:22 Acute sinusitis 71289087 J01.90 sinus pressure with purulent drainage, start amox 500 mg TID Dysfunctio n of eustachian tube 43549872 H68.013 c/o fluid in ears, dwp flonase or other inhaled nasal steroid to reduce inflammati on [id number] MD Otto Sousa (Adult Med) [address] [place] [address] 05/27/2020 16:06:48 05/30/2020 21:42:35 Chronic constipation 267954786 K59.09 dwp diet changes, prn stool softener, MoM or miralax, ok to cont tea Hemorrhoids 11775011 K64 .9 recent flare and bleeding, dwp topicals, manage constipati on better, increase fluids Vitamin D deficiency 347 33367 E55.9 check lab Painless r ectal bleeding 245294262 K62.5 no labs done at ER, dwp labs needed Endocrine/ metabolic screening 278145355 Z13.228 Cholesterol screening 27 3240988 Z13.220 Overweight 090326574 E66 .3 [id number] MD Otto Sousa (Adult Med) [address] [place] [address] 12/15/2020 08:24:33 12/19/2020 10:24:17 Otalgia 65033124 H92.03 recurrent infections and pain, has been going to ER for treatment, rx for topical and will refer to ent Vitamin D deficiency 347 13742 E55.9 low , start high dose weekly replacemen t [id number] MD Otto Sousa (Adult Med) [address] [place] [address] 05/25/2021 16:12:53 05/29/2021 07:26:44 Acute bilateral otitis media 412030956 H66.93 Andrea TM erythema and edema/bulg ing, will send amox Vitamin D deficiency 347 04881 E55.9 low , start high dose weekly replacemen t Unintentio nal weight gain 9802692690 62217 R63.5 dwp will check labs, keep log of diet, work on cutting out junk food and sugars [id number] MD Otto Sousa (Adult Med) [address] [place] [address] 06/15/2021 15:52:33 06/16/2021 06:29:02 Dysfunction of eustachian tube 59132185 H68.013 c/o fluid in ears, dwp flonase or other inhaled nasal steroid to reduce inflammati on Posterior rhinorrhea 758 07349 R09.82 start daily antihistam ine, will send zyrtec Vitamin D deficiency 347 91988 E55.9 cont high dose weekly replacemen t Obesity 076371618 E66.9 advised low fat, low cholestero l diet, regular exercise and weight reduction. [id number] MD Otto Sousa (Adult Med) [address] [place] [address] 11/22/2021 11:58:25 11/22/2021 12:34:29 Otitis externa of bilateral ears 5673316419 228747 H60.93 andrea ear canal erythema, edema, will send topical abx Obesity 145024348 E66.9 advised low fat, low cholestero l diet, regular exercise and weight reduction. Acute bila teral otitis media 642439560 H66.93 Andrea TM erythema and edema/bulg ing, will send amox [id number] MD Otto Bartlett (Adult Med) [address] [place] [address] 01/02/2022 11:01:22 01/03/2022 08:12:19 Bilateral external auditory canal chronic otitis externa 5660428469 594307 H60.63 stop drops keep ears dry [id number] MD Otto Sousa (Adult Med) [address] [place] [address] 12/20/2022 14:40:58 12/23/2022 11:16:36 Low back pain 194136060 M54.50 ER report reviewed; xray wnl Obesity 914633906 E66.9 advised low fat, low cholestero l diet, regular exercise and weight reduction. Sciatica 98306595 M54.30 dwp stretching , will send to PT [id number] MD Otto Sousa (Adult Med) [address] [place] [address] 06/04/2023 10:43:00 06/07/2023 10:50:57 Mild intermittent asthma 567149948 J45.20 dwp prn albuterol usereviewe d AAP Dysfunctio n of eustachian tube 82260686 H68.013 c/o fluid in ears, dwp flonase or other inhaled nasal steroid to reduce inflammati on Obesity 595091041 E66.9 advised low fat, low cholestero l diet, regular exercise and weight reduction. Vitamin D deficiency 347 15100 E55.9 cont high dose weekly replacemen t Adult heal th examination 477688429 Z00.01 Encouraged routine [employer], vision, dental exams, well balanced diet. Irregular periods 054908 07 N92.6 advised to follow up with gyne but will check a1c Sciatica 81075531 M54.30 dwp stretching , will send to PT Impacted c erumen of bilateral ears 7922463208 536106 H61.23 excessive ear wax, declined lavage in office, dwp debrox use [id number] MD Otto BARROSO (GIS APPLICATION DEVELOPER) [address] [place] [address] 06/27/2023 13:56:12 07/12/2023 17:07:48 Routine gynecologic examination done 6596327150 9101 Z01.419 - Reviewed risks for infection and cancer; ordered screening tests as appropriat e- Recommende d annual flu vaccine and updated 2022 COVID vaccine Screening for malignant neoplasm of cervix 700741081 Z12.4 - Due for Pap; collected today Pruritus of vagina 55249 003 L29.3 - f/u NuSwab; will treat as indicated by results [id number] MD Otto Sousa (Adult Med) [address] [place] [address] 11/28/2023 14:59:53 12/11/2023 08:58:50 Sciatica 09055464 M54.30 dwp stretching , will send to PT Unintentio nal weight gain 3415935184 50441 R63.5 dwp will check labs, keep log of diet, work on cutting out junk food and sugars Abdominal bloating 19573 9008 R14.0 c/o gas pain for several days, ok now;dwp diet changes Right uppe r quadrant pain 477072000 R10.11 starts in back and radiates to front, feels like cramping [id number] MD Otto Sousa (Adult Med) [address] [place] [address] 05/05/2024 15:39:38 05/06/2024 16:39:21 Adult health examination 266980696 Z00.01 Encouraged routine [employer], vision, dental exams, well balanced diet. Obesity 088748796 E66.9 advised low fat, low cholestero l diet, regular exercise and weight reduction. Vitamin D deficiency 347 96125 E55.9 cont high dose weekly replacemen t Mild inter mittent asthma 180239387 J45.20 dwp prn albuterol usereviewe d AAP Tingling of skin 3342984 07 R20.2 c/o tingling at HS, will get lab Administra tion of diphtheria, pertussis, and tetanus vaccine 477141194 Z23 [id number] MD Otto Sousa (Adult Med) [address] [place] [address] 01/26/2025 16:16:05 02/11/2025 13:49:23 Mild intermittent asthma 066504396 J45.20 dwp prn albuterol usereviewe d AAP Hypoglycemia 197235830 E 16.2 38976 pt feels her glucose drops too low, will get labsadvise d diet changes Vitamin D deficiency 347 17781 E55.9 cont high dose weekly replacemen t Unintentio nal weight gain 8578779664 [id number] [facility] will check labs, keep log of diet, work on cutting out junk food and sugars Abdominal bloating 67328 9005 R14.0 54118 c/o gas pain for several days, ok now;[facility] diet changes Generalize d anxiety disorder 38452754 F41.[id number] [facility] med options, pt is not wanting a daily med, will try coping techniques declined referral to as well Numbness a nd tingling sensation of skin 4500777792 02 R20.0 R20.2 062962 neuro exam wnl,will check lab Health Concerns Section Related Observation LastModified by Organization Detai ls LastModified Time None Recorded Concern Status LastModified by Organization Details LastModified Time None Recorded Advance Directives Directive N: Payers Insurance Date Sequence Insurance Name Policy Number Policy Westfall Covered Member ID Westfall Member ID Guarantor Name 03/05/2025 1 [facility] (MEDICAID HMO) [id number] Sema Tadeo [id number] Sema Tadeo 06/26/2023 1 [facility] (MEDICAID HMO) [id number] Sema Tadeo [id number] Sema Tadeo 06/26/2023 [facility] (MEDICAID HMO) [id number] Sema Tadeo [id number] Sema Tadeo 06/26/2023 1 [place] [facility] Sema Tadeo [id number] Sema Tadeo Notes Date Note Type Note Provider Name and Address Organization Details Recorded Time 06/27/2023 text/html ROS as noted in the [facility] Annual well woman- PCP: TRAVIS Dunaway- At [facility]; 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 No change in [...] smoker. MYRIAM PEACE MD Attn: Accounting,[address] [facility], [place], [address], [facility] - [facility] 06/27/2023 16:13:38 11/28/2023 text/html ROS as noted [...] Celeste Berrios APN, FNP-C Attn: Accounting,[address] [facility], [place], [address], [facility] 12/10/2023 20:37:38 05/05/2024 text/html ear pain and drainage for 3 days.would like cholesterol and vit D checked.sometimes at HS she c/o tingling down arms and legs when she eats late at night Celeste Berrios APN, FNP-C Attn: Accounting,[address] [facility], [place], [address], [facility] 05/05/2024 16:23:13 01/26/2025 text/html unexplained weight gain- barely eats fast food.pt states she gets gassy and bloated when drinking milk- has never has this issue beforeafter eating fatty food she feels like her blood sugar spikes and she gets sick feeling and fingertips feel numb.wants thyroid checked Celeste Berrios APN, FNP-C Attn: Accounting,[address] [facility], [place], [address], [facility] 02/10/2025 09:53:54 03/08/2025 text/html prescribed hydroxyzine, took for 2 days but is making her sleep all the time. wants something to help calm her nerves. went to ER on 02/02/25 for panic attackwants to see ENT for chronic ear infectionscurrently on abx and steriod from 03/03/25 for ear infection. thinks she needs ear drops as well Not Available Not Available Not Available OBGyn Episode No OBEpisode recorded.
[2025-03-19 11:38] VITALS: BP 125/77; PULSE 80; RESP 16; TEMP 37; O2SAT 100
--- NOTE | 2025-03-19 11:42 | ED_ITS ---
HPI - Ear Problem General Chief complaint: Extremity Injury, Lower Stated complaint: Left Big Toe Pain Time Seen by Provider: 03/19/25 11:29 Source: patient Mode of arrival: ambulatory Limitations: no limitations History of Present Illness HPI Narrative: Deepak is a 24-year-old female patient presenting to the clinic today with complaints of left great and 2nd toe pain as well as left ear pain. She reports the toe pain and ear pain has been going on for or 2-3 days. Has had cold symptoms for 2 weeks and has been recently treated with antibiotics for a sinus infection. Denies any fevers, chills, body aches. Denies any chest pain or shortness of breath. Related Data Home Medications ?Medication ?Instructions ?Recorded ?Confirmed ?Last Taken ?Type hydroxyzine HCl 25 mg tablet mg 03/03/25 Unknown Hist ory escitalopram oxalate 5 mg tablet mg 03/19/25 Unknown History Allergies Allergy/AdvReac Type Severity Reaction Status Date / Time No Known Allergies Allergy Verified 03/19/25 11:29 Review of Systems Review of Systems: Pertinent positives per HPI. Patient denies any fever, chills, rash, headache, visual changes, dizziness, cough, shortness of breath, chest pain, palpitations, nausea, vomiting, diarrhea, constipation, abdominal pain, or any urinary issues. PMFSH Past Medical History Medical History Fracture of finger of left hand 5th finger Asthma Surgical History Surgical History No pertinent past surgical history Family History Family History Mother Unknown family medical history Social History Social History Smoking status: Never smoker Additional smoking assessment comments: no smoking Alcohol intake: current Alcohol use details: rare social Substance use: never Living arrangements: with family Gender identity (if verbalized by the patient): Female Spiritual care concerns: No Comments At the time of my signature, I reviewed and agree with the nursing past medical, surgical, social, and family history. There is no relevant family history pertinent to the patient complaint. Exam Narrative: General: Well-developed, well nourished, in no apparent distress Head: Normocephalic, atraumatic Eyes: Pupils equally round and reactive to light bilaterally, EOM intact, sclera and conjunctive clear, no discharge, lids normal Ears: TMs intact and clear, right ear canals clear, no drainage, left ear canal red, swollen, white drainage, nurse palpation over the tragus and pulling of the pinna, grossly hearing normal. Nose: Nares patent, no discharge, no inflammation, no sinus tenderness. Mouth: Oral pharynx without lesions or masses, good dentition, MMM. Neck: Supple, trachea midline, no enlargement of anterior or posterior cervical nodes, no thyroid masses or goiter palpable. Cardio: Regular rate and rhythm, s1 and s2 normal, no murmur appreciated. Resp: Clear to auscultation bilaterally, no rhonchi, rales, wheezing or rubs General: Well-developed, well nourished, in no apparent distress Musculoskeletal: No deformity, no redness or swelling noted, tender to palpation over the left great toenail in over the left 2nd toenail, grossly normal range of motion, muscle strength strong and equal, peripheral pulse strong, no edema, no cyanosis, normal gait and station Course Course Level of Care: Express Care Visit Vital Signs Vital signs: Vital Signs Temperature 37.0 C 03/19/25 11:38 Pulse Rate 80 03/19/25 11:38 Respiratory Rate 16 03/19/25 11:38 Blood Pressure 125/77 03/19/25 11:38 Pulse Oximetry 100 03/19/25 11:38 Oxygen Delivery Room Air 03/19/25 11:38 Temperature 37.0 C 03/19/25 11:38 Pulse Rate 80 03/19/25 11:38 Respiratory Rate 16 03/19/25 11:38 Blood Pressure 125/77 03/19/25 11:38 Pulse Oximetry 100 03/19/25 11:38 Oxygen Delivery Room Air 03/19/25 11:38 [facility] MDM Narrative Medical decision making narrative: At the time of visit patient is resting comfortably on the exam table. Patient appears to be nontoxic. Complaints of left great and 2nd toe pain as well as left ear pain. She reports the toe pain and ear pain has been going on for or 2-3 days. Has had cold symptoms for 2 weeks and has been recently treated with antibiotics for a sinus infection. Denies any fevers, chills, body aches. Denies any chest pain or shortness of breath. On exam patient has no evidence of infection to the left great toe or 2nd toe-tenderness to palpation over the toenail-no fungus, left intact and clear, left ear canal mildly swollen with white exudate, tenderness to palpation over the tragus and pulling of the pinna. Left Ear culture was ordered. Lab: Left Ear culture was sent to the lab. Plan: I suspect patient has left otitis externa and toe pain. Recommend follow-up with [facility] developer in regard to toe pain for further evaluation. Will send in prescription for ofloxacin ear drops Supportive measures were discussed with the patient and they voiced understanding discharge instructions and agrees to treatment plan. Return precautions reviewed Differential Diagnosis Differential Diagnosis: Differential diagnostic considerations for upper respiratory infection include upper respiratory infection, croup, otitis media, sinusitis, viral infection, bronchitis, influenza, pharyngitis, strep, uvulitis. Otitis media, otitis sternum eustachian tube dysfunction, cerumen impaction, ingrown toenail, paronychia, contusion, toe swelling, gout Discharge Plan Discharge Clinical Impression: Acute otitis externa of left ear, Pain in toe Patient Disposition: Home Condition: Stable Instructions: Antibiotic Form, Swimmer's Ear (ED) Additional Instructions: Toe pain discharge instructions: No evidence of infection to the left great or 2nd toe. No obvious sign of ingrown toenail May take Tylenol/Motrin as needed for pain Wear loose-fitting/comfortable shoes Follow-up with dot net developer for further evaluation Ear pain discharge instructions: Take any prescribed medications only as directed-ofloxacin ear drops Culture of the left ear canal was sent to the lab Tylenol/motrin as needed for pain May use heating pad to alleviate pain Avoid bottle propping if ear infection in . If you get recurrent ear infections it may be warranted to follow up with ENT. Follow up with your PCP in 3-5 days if symptoms persist. Patient Language: [place] Prescriptions: New ofloxacin 0.3 % drops 5 drp otic (ear) BID 7 Days Qty: 5 0RF No Action hydroxyzine HCl 25 mg tablet escitalopram oxalate 5 mg tablet Follow-up/Referrals: Arsh Cash DPM [Physician, Podiatry] - 3 Days Referral Note: Pain the toenail of the left great and 2nd toe Clinical Impression: Pain in toe Claire,Celeste Yeung APN [Primary Care Provider, Unknown] Time of Disposition: 11:46 Quality NIHSS Nursing Documentation ED NIHSS nursing documentation: reviewed/agree
== END 2025-03-19 11:56 | disposition home or self-care (01) ==
PROVIDERS: Emergency Provider Nurse Practitioner Family; PCP Nurse Practitioner Family
DX: H60.92 Unspecified otitis externa, left ear (principal); M79.675 Pain in left toe(s); J45.909 Unspecified asthma, uncomplicated
CPT/HCPCS: 87070; 87077; 87186; 87205; 99213; G0463